=== PATIENT | female | born 1955 | race Caucasian/White ===

== ENCOUNTER → 2017-08-24 10:46 | Outpatient (CLI) | payer BC, SELFPAY ==
[2017-08-24 11:50] LABS: Hemoglobin A1c 6.1 % (4.2-6.3)
[2017-08-24 11:57] LABS: Microalbumin:Creatinine Ratio 91.7 mg/g CRE (<30 mg/g CRE)
[2017-08-24 12:09] LABS: AST(SGOT) 22 U/L (15-37); Alanine Aminotransfer ALT/SGPT 28 U/L (13-56); Albumin, Serum 3.9 g/dL (3.2-5.0); Alkaline Phosphatase 64 U/L (45-117); Anion Gap 7 (5-15); BUN 14 mg/dL (7-18); Calcium,Total 9.2 mg/dL (8.5-10.1); Chloride 108 mmol/L (98-107); Cholesterol 186 mg/dL (200); EST Glomerular Filtration Rate 91 mL/min (>60); Est Glom Filt Rate - Afr Amer 110 mL/min (>60); Globulin 3.9 g/dL (2.2-4.2); Glucose 118 mg/dL (74-106); High Density Lipoprotein 71 mg/dL; Potassium 3.9 mmol/L (3.5-5.1); Protein, Total 7.8 g/dL (6.4-8.2); Sodium Level 143 mmol/L (136-145); Triglycerides 123 mg/dL; Very Low Density Lipoprotein 25 mg/dL (5-40)
== END ==
PROVIDERS: Family Provider Internal Medicine; PCP Internal Medicine; Visit Provider Internal Medicine
DX: E78.2 Mixed hyperlipidemia (principal); R73.01 Impaired fasting glucose
CPT/HCPCS: 36415; 80053; 80061; 82043; 82570; 83036

== ENCOUNTER → 2017-09-29 10:13 | Outpatient (CLI) | payer BC, SELFPAY ==
--- NOTE | 2017-09-29 10:16 | BI_ITS ---
MAMMOGRAPHY - BILATERAL SCREENING REASON FOR EXAM: Female, 61 years old. Routine annual screening examination. PERTINENT HISTORY: Grandmother with breast cancer. Remote right stereotactic breast biopsy. TECHNIQUE: Digital bilateral breast marilee (3D mammographic acquisition) in the CC and MLO projections. 2-D mediolateral oblique (MLO) and craniocaudad (CC) views of both breasts were obtained. CAD: Full Field Digital Mammography with Computer Added Detection was performed. COMPARISON: Comparison is made with prior study dated June 25, 2016 and May 29, 2015. FINDINGS: Breast Composition: There are scattered areas of fibroglandular density. There are no dominant masses or suspicious calcifications. A tissue clip marker is seen in the upper mid right breast. Stable appearance of the small nodular density at the biopsy site. No other significant abnormalities are identified. There has been no significant change since the prior study. BI/SCREENING MAMM (CAD), BILAT IMPRESSION: Stable bilateral screening mammogram. Yearly follow-up mammogram recommended. (A) ASSESSMENT CATEGORY: BIRADS Category 2: Benign. A letter regarding these results will be sent to the patient by the facility within 30 days. Approximately 10% of breast cancers are not detected by mammography. A normal mammogram should not delay biopsy of a clinically suspicious abnormality. [id number] Electronically Signed: Parker Rojas MD at 11:23 EDT Tel [phone], Service support ,
== END ==
PROVIDERS: Family Provider Internal Medicine; PCP Internal Medicine; Visit Provider Internal Medicine
DX: Z12.31 Encounter for screening mammogram for malignant neoplasm of breast (principal)
CPT/HCPCS: 77063; 77067

== ENCOUNTER → 2017-10-01 10:23 | Outpatient (CLI) | payer BC, SELFPAY ==
--- NOTE | 2017-10-01 10:26 | RAD_ITS ---
STUDY: X-RAY - CERVICAL SPINE REASON FOR EXAM: Female, 61 years old. Neck pain. No trauma. TECHNIQUE: 6 view(s) of the cervical spine were obtained. COMPARISON: None FINDINGS: Normal anterior atlantoaxial articulation. Normal odontoid process. Normal cervical lordosis. There is multi-level endplate spondylosis. There is multi-level degenerative disc disease with multilevel disc space narrowing. There is multi-level osseous foraminal stenosis. The soft tissue structures are unremarkable. RAD/Cerv Spine 4 or 5 Views IMPRESSION: Degenerative changes. Electronically Signed: Leona Loco MD at 12:47 EDT Tel , Service support ,
--- NOTE | 2017-10-01 10:26 | RAD_ITS ---
STUDY: X-RAY - LUMBAR SPINE REASON FOR EXAM: Female, 61 years old. Lower back pain. No trauma. TECHNIQUE: 5 view(s) of the lumbar spine were obtained. COMPARISON: None FINDINGS: Normal lumbar lordosis. There is no substantial scoliosis. There is a normal alignment of the vertebrae. There is multilevel endplate spondylosis of the lumbar vertebrae. There is multi-level degenerative disc disease with multi-level disc space narrowing. There is atherosclerotic calcification of the abdominal aorta without a demonstrated aneurysm. RAD/L/S Spine Min 4 Views IMPRESSION: Degenerative changes of the spine, as detailed above. Atherosclerosis. Electronically Signed: Leona Loco MD at 11:46 EDT Tel , Service support ,
== END ==
PROVIDERS: Family Provider Internal Medicine; PCP Internal Medicine; Visit Provider Internal Medicine
DX: M54.2 Cervicalgia (principal); M54.5 Low back pain
CPT/HCPCS: 72050; 72110

== ENCOUNTER → 2017-10-24 08:56 | Outpatient (CLI) | payer BC, SELFPAY ==
--- NOTE | 2017-10-24 09:01 | CT_ITS ---
STUDY: CT ABDOMEN AND PELVIS WITHOUT CONTRAST REASON FOR EXAM: Female, 61 years old. There is hematuria left flank pain RADIATION DOSAGE (If Supplied By Facility): CTDIvol = ( 7.63 ) mGy, DLP = ( 375.43 ) mGycm TECHNIQUE: Transaxial images were obtained from the dome of the diaphragm to the symphysis pubis without oral contrast, and without intravenous contrast. Sagittal and coronal images were reconstructed. Individualized dose optimization techniques were used for this CT. COMPARISON: None. FINDINGS: The visualized lung bases are unremarkable. The visualized portions of the heart are within normal limits. Normal liver. There is a gallstone in the gallbladder measuring 1 cm. Normal spleen. There is a absent or diminutive appearance of the body and tail of the pancreas. In the head of the pancreas there is a focal fatty density suggesting probable lipoma or focal fat measuring 9 mm. Normal bilateral adrenal glands. There are multiple cystic structures in the right kidney the largest of which measures 2.3 x 2.4 cm in the upper pole of the right kidney. There is a calcification measuring 7.5 mm bordering the right renal pelvis without visualized hydronephrosis. There is an upper pole left renal cyst measuring 2.1 x 2 cm. There is a stone measuring 3.2 mm bordering the left collecting system. There is an lower pole left renal stone measuring 9.7 x 6.6 mm. There is trace left-sided pelviectasis. There is no definitive evidence of stone along the course of the visualized left ureter. There is a minimal hiatal hernia. Normal small intestine. Normal colon. There is non-visualization of the appendix. Aorta is partially calcified including bilateral takeoff of the renal arteries. Normal inferior vena cava. Normal retroperitoneum. Normal urinary bladder. There is absence of the uterus consistent with a prior hysterectomy. In the right lower quadrant there is a fluid distended structure which may represent summation of shadows with small bowel versus a ovarian cyst measuring 3.5 x 2.6 cm. There is a small umbilical hernia containing fat. There are diffuse degenerative changes of the visualized lumbar spine. CT/Abdomen/Pelvis without Cont IMPRESSION: Bilateral renal cysts. Bilateral renal stones. No definitive evidence of stones along the course of the ureters. Cholelithiasis. Diminutive and/or absent appearance of the body and tail of the pancreas recommend clinical correlation. Status post hysterectomy. Focal mildly distended small bowel right lower quadrant versus a right ovarian cyst 3.5 x 2.6 cm.. Consider follow-up pelvic ultrasound. Electronically Signed: Serena Freitas MD at 9:57 EDT Tel , Service support ,
== END ==
PROVIDERS: Family Provider Internal Medicine; PCP Internal Medicine; Visit Provider Internal Medicine
DX: R31.9 Hematuria, unspecified (principal)
CPT/HCPCS: 74176

== ENCOUNTER → 2017-11-16 08:14 | Outpatient (CLI) | payer BC, SELFPAY ==
--- NOTE | 2017-11-16 08:18 | US_ITS ---
STUDY: ULTRASOUND OF THE FEMALE PELVIS - COMPLETE REASON FOR EXAM: Female, [address] LMP: Status post hysterectomy TECHNIQUE: Transabdominal and Transvaginal TECHNICAL QUALITY: Adequate. COMPARISON: None. FINDINGS: The uterus and ovaries are not visualized in concordance with history of hysterectomy and bilateral oophorectomy.. There is no fluid in the cul-de-sac. The cervix is present. No adnexal mass is identified. US/Pelvic (Non ) IMPRESSION: Uterus and ovaries are not seen in accordance with history of hysterectomy and bilateral oophorectomy. No pelvic solid or cystic lesion is evident. Electronically Signed: Clarence Kelly MD at 20:33 EDT , Service support ,
--- NOTE | 2017-11-16 08:19 | US_ITS ---
STUDY: ABDOMINAL ULTRASOUND REASON FOR EXAM: Female, [address] TECHNIQUE: Transabdominal ultrasound was performed with real-time and static west scale imaging. TECHNICAL QUALITY: Adequate. COMPARISON: None. FINDINGS: Liver: The liver measures 14.0 cm. There is normal echogenicity of the liver. The bile ducts are within normal limits. There is hepatic color flow. The direction of portal flow is hepatopetal. There is no demonstrated mass lesion. Gallbladder: Normal distended gallbladder. The gallbladder wall measures 2.6 mm. There is a negative sonographic Nelson's sign. There is no pericholecystic fluid. There is a sludge ball within the gallbladder neck measuring approximately 1.0 cm. Common Bile Duct (C.B.D.): The common bile duct measures 4.2 mm. Pancreas: The pancreatic body and tail are atrophic. The pancreatic head is echogenic suggestive of fatty replacement. There is no demonstrated pancreatic mass or cyst. Spleen: Normal size of the spleen. The spleen measures 10.0 x 4.5 x 3.3 cm. Right Kidney: Normal size of the right kidney. The right kidney measures 10.5 x 5.1 x 6.1 cm. Normal renal cortex. The right cortex measures 1.7 cm. There are several right renal cysts measuring 2.3 x 1.6 x 1.6 cm and 1.3 x 1.3 x 1.4 cm. There is no hydronephrosis. There are 4 right renal calculi measuring from 2 to 5 mm in diameter. Left Kidney: Normal size of the left kidney. The left kidney measures 10.5 x 5.5 x 5.8 cm. Normal renal cortex. The left cortex measures 2.0 cm. There is a left renal cyst measuring 1.9 x 1.5 x 1.4 cm. There are 3 left renal calculi ranging in size from 1 to 3 mm. There is no left hydronephrosis. Aorta: The abdominal aorta measures 2.3 cm in diameter proximally, 2.0 cm in the mid abdominal region, and 1.8 cm distally. There is no abdominal aortic aneurysm. There is diffuse atheromatous plaque formation of the abdominal aorta. I.V.C.: The IVC is patent. There is no ascites. US/Abdomen Complete IMPRESSION: 1. Approximately 1 cm in diameter sludge ball noted in the gallbladder neck. 2. Bilateral renal cysts and calculi as detailed above. 3. Atrophic pancreatic body and tail. There appears to be fatty replacement of the pancreatic head. 4. Diffuse atheromatous plaque formation of the abdominal aorta. Electronically Signed: Clarence Kelly MD at 20:22 EDT , Service support ,
== END ==
PROVIDERS: Family Provider Internal Medicine; PCP Internal Medicine; Visit Provider Internal Medicine
DX: R93.8 Abnormal findings on diagnostic imaging of other specified body structures (principal)
CPT/HCPCS: 76700; 76856

== ENCOUNTER → 2017-11-19 12:27 | Outpatient (CLI) | payer BC, SELFPAY ==
[2017-11-19 12:36] LABS: Bacteria 0 SEEN /hpf (None Seen); Mucous, Urine 0 SEEN /hpf (<or=2+); Squamous Epithelial Cells - UA 0 SEEN /hpf (5-10)
[2017-11-19 14:06] LABS: Absolute Lymphocyte Count 1.94 X10^3/ul (0.83-4.51); Absolute Neutrophil Count 6.1 X10^3/uL (2.0-7.7); Basophil# 0.05 X10^3/uL; Basophil% 0.6 % (0-1); Color, Urine Yellow (Yellow); Eosinophil# 0.31 X10^3/uL; Eosinophils% 3.6 % (0-5); Glucose, Dipstick Normal (Normal); Hematocrit 43.4 % (37-47); Hemoglobin 14.5 g/dl (12.0-15.0); Ketone-Dipstick 50 mg/dl (Negative); Leukocyte Esterase-Dipstick 25 /ul (Negative); Lymphocyte # 1.94 X10^3/ul (4.0); Lymphocyte % 22.2 % (19-41); Mean Corp Hgb Conc 33.4 g/gl (32-36); Mean Corpuscular Hgb 28.4 pg (27.0-32.0); Mean Corpuscular Volume 84.9 fL (81-99); Monocyte# 0.32 X10^3/uL; Monocyte% 3.7 % (0-10); Neutrophil # 6.11 X10^3/uL (2.7-7.7); Neutrophil % 69.9 % (47-70); Nitrite-Dipstick Negative (Negative); Occult Blood-Urine 250 /ul (Negative); Platelet Count 310 K/mm3 (150-450); Protein-Dipstick Negative (Negative); RBC Distribution Width CV 13.5 % (11.6-14.6); Red Blood Count 5.11 M/mm3 (4.2-5.4); Urine Bilirubin Dipstick Negative (Negative); Urine Clarity Clear (Clear); Urine Urobilinogen Normal (Normal); White Blood Count 8.7 K/mm3 (4.4-11.0)
[2017-11-19 14:07] LABS: POSITIVE COUNT NO; POSITIVE DIFFERENTIAL NO; POSITIVE MORPHOLOGY NO
[2017-11-19 14:13] LABS: Red Blood Cells-Urine 0-5 SEEN /hpf (0-5); White Blood Cells 0-5 SEEN /hpf (0-5)
[2017-11-19 14:16] LABS: AST(SGOT) 22 U/L (15-37); Alanine Aminotransfer ALT/SGPT 24 U/L (13-56); Alkaline Phosphatase 59 U/L (45-117); Amylase 32 U/L (25-115); Anion Gap 11 (5-15); BUN 12 mg/dL (7-18); BUN/Creat Ratio 16.3 RATIO (10-20); Calcium,Total 9.3 mg/dL (8.5-10.1); Chloride 104 mmol/L (98-107); Creatinine, Serum 0.73 mg/dL (0.55-1.02); EST Glomerular Filtration Rate 86 mL/min (>60); Est Glom Filt Rate - Afr Amer 104 mL/min (>60); Globulin 4.2 g/dL (2.2-4.2); Glucose 102 mg/dL (74-106); Lipase 148 U/L (73-393); Potassium 3.2 mmol/L (3.5-5.1); Protein, Total 8.2 g/dL (6.4-8.2); Sodium Level 140 mmol/L (136-145)
== END ==
PROVIDERS: Family Provider Internal Medicine; PCP Internal Medicine; Visit Provider Physician Assistant
DX: R10.9 Unspecified abdominal pain (principal); M54.5 Low back pain
CPT/HCPCS: 36415; 80053; 81001; 82150; 83690; 85025; 87086

== ENCOUNTER 2017-11-20 11:52 | Day surgery (SDC) | payer BC, SELFPAY ==
[2017-11-20] VITALS (9 sets, daily range): BP systolic 114–132; BP diastolic 70–81; PULSE 50–66; RESP 16; TEMP 36.1–36.4; O2SAT 93–100; BMI 24.5
--- NOTE | 2017-11-20 12:07 | EKG12_ITS ---
Test Reason : PRE OP Blood Pressure : / mmHG Vent. Rate : 063 BPM Atrial Rate : 063 BPM P-R Int : 140 ms QRS Dur : 098 ms QT Int : 412 ms P-R-T Axes : 024 057 065 degrees QTc Int : 421 ms Normal sinus rhythm Normal ECG Confirmed by DEN READ, HARIS ([id number]), kennel helper JOSE RIVERA ([id number]) on 11/25/2017 11:22:44 AM Referred By: Diego Olsen Confirmed By:HARIS CRENSHAW MD
[2017-11-20 12:59] LABS: Magnesium 1.9 mg/dL (1.6-2.6); Potassium 3.5 mmol/L (3.5-5.1)
--- NOTE | 2017-11-20 13:00 | PCM.OPRPT ---
Problem List (1) Gallbladder polyp Status: Acute (2) Right upper quadrant abdominal pain Status: Acute Report of Operation Date of Procedure: 11/20/17 Pre-Operative Diagnosis: K 82.4 gallbladder polyp. R10.11 right upper quadrant abdominal pain Post-Operative Diagnosis: Same Surgery/Procedure Performed:: 81202 laparoscopic cholecystectomy Type of Anesthesia:: General Estimated Blood Loss (mL): < 25 cc Description of Procedure: Patient was brought into the operating room. Placed in the supine position. Under excellent general endotracheal intubation the abdomen was sterilely prepped and draped in the usual fashion. Local was injected infraumbilically. Dissection was carried down to the fascia. The fascia was grasped with Jennie. There is needle was placed inside the abdomen. The abdomen was insufflated to 15 torr. A 10/12 trocar was placed without difficulty. Patient was placed in the head up and rotated to the left position. I was able to place a subxiphoid #5 trocar inferior to this another #5 trocar and laterally a #5 trocar. All these under direct visualization without injury to underlying structures. Grab the fundus of the gallbladder and retracted in cephalad direction of the infundibulum and grafted laterally. I dissected out the cystic duct and cystic artery in the posterior to this and to the liver and identified close triangle quite nicely. I placed hemoclips proximally and distally on the duct and ligated the duct. I placed hemoclips proximally and distally on the cystic artery and ligated the artery. I deliver the gallbladder from the gallbladder bed with use of electrocautery was no spillage of bile or stones. Placed the specimen in a specimen bag and delivered through the umbilical port without difficulty. Reinflated the abdomen. Inspected the gallbladder used electrocautery for good hemostasis. Removed the trochars under direct visualization good hemostasis was noted. Close the fascia the umbilical port with a figure 8 stitch of 0 Vicryl. Skin incisions were closed with subcuticular stitches of 4-0 Monocryl. Receptor applied sterile dressings were applied and the patient tolerated the procedure well. - Admit VTE Documentation VTE Present on Admission: No VTE Mechan Device Prophylaxis: SCD's VTE Pharm Prophylaxis ordered?: No Reason prophylaxis not ordered:: Treatment Not Indicated
--- NOTE | 2017-11-20 13:01 | PCM.DC.GB ---
Discharge Diet: Light diet - advance as tolerated Discharge Activity: May Not Drive - for 2-3 days or while taking narcotic pain medications., - - Do not drive, work heavy equipment or sign legal documents for 24 hours. May shower in (days): 1 - with the bandage in place. Additional Activity Instructions:: Pain medication may cause nausea. You should typically eat light foods as you take your pain medications. Pain medication may also cause constipation. If this is a problem for you, please discuss with your doctor. Call your doctor if your incision/area has: Continuous Slow Oozing, Sudden Increased Bleeding, Increased Pain/ Swelling, Increased Redness, Foul Smelling Discharge Call your doctor if you observe: Fever of 101 or Higher Suture Line Care: Avoid Pulling/Pushing, Avoid Pinching/Bending Additional Dressing/Incision Instructions:: Leave operative bandaids on for 2 days. When you remove dressing, leave Steri-Strips on until your follow-up appointment, or until the Steri-Strips fall off on their own. Allergies/Adverse Reactions: Allergies No Known Allergies Allergy (Unverified 11/19/17 13:19) Medications to take at Discharge Ibuprofen 600 mg PO BID 11/19/17 Light Mineral Oil/Min Oil/Pf [Retaine Mgd Eye Drops] 1 drop EACH EYE PRN PRN 11/19/17 amlodipine 5 mg tablet 5 mg PO QDAY 11/19/17 azelastine-fluticasone 137 mcg-50 mcg/spray nasal spray 1 spray INTRANASAL BID 11/19/17 budesonide 32 mcg/actuation nasal spray 1 spray INTRANASAL BID 11/19/17 buspirone 10 mg tablet 10 mg PO BID 11/19/17 cholecalciferol (vitamin D3) 1,000 unit capsule 1,000 unit PO QDAY 11/19/17 docusate sodium 100 mg capsule 100 mg PO BID 11/19/17 hydrochlorothiazide 25 mg tablet 25 mg PO QAM 11/19/17 lisdexamfetamine 70 mg capsule 70 mg PO QAM 11/19/17 potassium chloride 20 mEq oral packet 20 meq PO BID 11/19/17 simvastatin 20 mg tablet 20 mg PO QPM 11/19/17 vit C 125 mg-E 100 unit-Zn 20 jn-owomhm-wjou-oggs-baetsa-esoge capsule 1 cap PO DAILY 11/19/17 Primary Care Physician: Kenia Bella DO [Primary Care Provider] - Test Results: Test results from this visit will be discussed in further detail at your follow-up appointment, if applicable. Please Follow Up With: Diego Olsen MD - Please call [phone] to schedule an appointment. When: 7 days after your surgery.
[2017-11-20] MEDS: Cefazolin 2 GM in 0.9% Normal Saline 100 ML IV (13:26)
--- NOTE | 2017-11-20 13:40 | GALL_PTH ---
PATIENT: CHALINO PORTILLO LOC: [facility] [place] U#:[id number] AGE/SX: 61/F ROOM: RE11/20/[address]: Dr. Diego Olsen MD : 1955 BED: DIS: 11/20/2017 SPEC #: [id number] RECD: 11/23/17 09:23 STATUS: PAYAM EMMA #: [id number] CAROL: 11/20/17 13:[address]: Diego Olsen DEPT: SURGICAL PATHOLOGY RECD BY: Braden Palencia ENTERED: 11/23/17 09:43 SP TYPE: DELIA CLARKE DR: Dr. Kenia Bella DO Tissues: Gallbladder, NOS Procedures: Surgery Specimen Level III HEADER OPERATION: Laparoscopic, cholecystomy PRE-OP DIAGNOSIS: Right upper quadrant pain TISSUE SUBMITTED: Gallbladder MICROSCOPIC DIAGNOSIS Gallbladder: Chronic cholecystitis and cholelithiasis. SJ:luz 11/24/17 MICROSCOPIC DESCRIPTION Slides are reviewed. GROSS DESCRIPTION Received is one container labeled with the patient's name and designated gallbladder. The specimen consists of a gallbladder measuring 7.5 x 2.5 x 2.5 cm. The external surface is smooth and glistening. Focally, it is granular, hemorrhagic and contains cautery artifact. The lumen of the gallbladder contains greenish bile and a dark morton-green calculus measuring 1.3 cm in greatest diameter. The mucosa is bile-stained and without any mass lesions. The gallbladder wall averages 0.1 cm in thickness and is free of mass lesions. Spot Man sections of the gallbladder and the cystic duct are submitted in one cassette. / AM:luz 11/23/17 TC:3 CPT: 45683
[2017-11-20] MEDS: Bupivacaine 0.25% 30 ML Vial (13:45)
== END 2017-11-20 16:25 | disposition home or self-care (01) ==
LOC: SDC 11:54 → AC 11:57
PROVIDERS: Family Provider Internal Medicine; PCP Internal Medicine; Visit Provider Surgery
PROC: (CPT 47562; principal; 2017-11-20 13:20)
DX: K80.10 Calculus of gallbladder with chronic cholecystitis without obstruction (principal); I10 Essential (primary) hypertension; E78.00 Pure hypercholesterolemia, unspecified; R73.03 Prediabetes; F41.9 Anxiety disorder, unspecified; Z78.0 Asymptomatic menopausal state; Z79.899 Other long term (current) drug therapy; Z87.442 Personal history of urinary calculi; Z87.891 Personal history of nicotine dependence
CPT/HCPCS: 47562; 36415; 83735; 84132; 88304; 93005; J7120; J2405

== ENCOUNTER → 2018-05-04 11:15 | Outpatient (CLI) | payer BC, SELFPAY ==
--- NOTE | 2018-05-04 11:18 | CT_ITS ---
STUDY: CT ABDOMEN AND PELVIS WITHOUT CONTRAST REASON FOR EXAM: Female, 62 years old. Hematuria and left flank pain RADIATION DOSAGE (If Supplied By Facility): CTDIvol = ( 6.77 ) mGy, DLP = ( 346.93 ) mGycm TECHNIQUE: Transaxial images were obtained from the dome of the diaphragm to the symphysis pubis without oral contrast, and without intravenous contrast. Sagittal and coronal images were reconstructed. Individualized dose optimization techniques were used for this CT. COMPARISON: 10/24/2017 FINDINGS: The visualized lung bases are unremarkable. The visualized portions of the heart are within normal limits. Normal liver. There is non-visualization of the gallbladder, which may be secondary to either contraction or a prior cholecystectomy. Normal spleen. Normal pancreas. Normal bilateral adrenal glands. Bilateral nonobstructing renal stones. Multiple right renal cysts. Normal visualized stomach. Normal small intestine. Normal colon. The appendix is visualized and appears normal. Normal abdominal aorta. Normal inferior vena cava. Normal retroperitoneum. Normal urinary bladder. Normal abdominal wall. There are diffuse degenerative changes of the visualized lumbar spine. CT/Abdomen/Pelvis without Cont IMPRESSION: No evidence of acute intestinal pathology or acute obstructive uropathy. Electronically Signed: Juan Shepard MD at 11:38 EST Tel , Service support ,
[2018-05-04 11:53] LABS: ALB/GLOB Ratio 1.3 RATIO (0.9-2.4); AST(SGOT) 20 U/L (15-37); Alanine Aminotransfer ALT/SGPT 37 U/L (13-56); Albumin, Serum 4.2 g/dL (3.2-5.0); Alkaline Phosphatase 72 U/L (45-117); Anion Gap 6 (5-15); BUN 25 mg/dL (7-18); BUN/Creat Ratio 37.4 RATIO (10-20); Calcium,Total 9.4 mg/dL (8.5-10.1); Chloride 107 mmol/L (98-107); Creatinine, Serum 0.67 mg/dL (0.55-1.02); EST Glomerular Filtration Rate 95 mL/min (>60); Est Glom Filt Rate - Afr Amer 115 mL/min (>60); Globulin 3.3 g/dL (2.2-4.2); Glucose 115 mg/dL (74-106); Protein, Total 7.5 g/dL (6.4-8.2); Sodium Level 141 mmol/L (136-145)
== END ==
PROVIDERS: Family Provider Internal Medicine; PCP Internal Medicine; Referring Provider Internal Medicine; Visit Provider Internal Medicine
DX: R10.9 Unspecified abdominal pain (principal)
CPT/HCPCS: 74176; 80053

== ENCOUNTER 2018-05-18 07:38 | Day surgery (SDC) | payer BC, SELFPAY ==
[2018-05-18 08:15] LABS: Potassium 3.5 mmol/L (3.5-5.1)
[2018-05-18 08:29] VITALS: BP 128/84; PULSE 63; RESP 16; TEMP 37; O2SAT 99; BMI 25.0
--- NOTE | 2018-05-18 09:20 | CALC_PTH ---
PATIENT: CHALINO PORTILLO LOC: [facility] [place] U#:[id number] AGE/SX: 62/F ROOM: RE05/18/[address]: Dr. Harmony Smith MD : 1955 BED: DIS: 05/18/2018 SPEC #: [id number] RECD: 05/18/18 10:47 STATUS: PAYAM EMMA #: [id number] CAROL: 05/18/18 09:[address]: Harmony Smith DEPT: SURGICAL PATHOLOGY RECD BY: Grzegorz Randhawa ENTERED: 05/18/18 12:21 SP TYPE: Calculi OTHR DR: Dr. Kenia Bella, DO Tissues: CALCULI Procedures: Surgery Specimen Level I HEADER OPERATION: Cysto, ureteroscopy, retro, laser, stent, basket extraction PRE-OP DIAGNOSIS: Calculus of ureter, calculus of kidney, gross hematuria, low back pain TISSUE SUBMITTED: Stone fragment GROSS DIAGNOSIS Ureteral calculus, removal: Unremarkable calculus (gross diagnosis only). AM:luz 05/19/18 COMMENT The calculus is submitted in its entirety for chemical stone analysis. The results from this study will be reported separately. GROSS DESCRIPTION Received in fixative is one container labeled with the patient's name and designated stone fragment. The specimen consists of a single irregular fragment of light morton calculus measuring 0.2 x 0.1 x 0.1 cm. / AM:luz 05/18/18 CPT: 54928
[2018-05-18] MEDS: Cefazolin 2 GM in 0.9% Normal Saline 100 ML IV (09:22)
--- NOTE | 2018-05-18 09:25 | DCINST_ITS ---
Discharge Diet: No Restrictions Discharge Activity: May not drive while taking narcotic pain medications. Call your doctor if you observe: Fever of 101 or Higher, Inability to urinate, Shortness of breath, Chest pain, Calf discomfort, Uncontrolled pain Allergies/Adverse Reactions: Allergies biotin Allergy (Verified 05/17/18 10:13) Rash Medications to take at Discharge Ibuprofen 600 mg PO BID PRN 11/19/17 Light Mineral Oil/Min Oil/Pf [Retaine Mgd Eye Drops] 1 drp EACH EYE PRN PRN 11/19/17 amlodipine 5 mg tablet 5 mg PO QDAY 11/19/17 budesonide 32 mcg/actuation nasal spray 1 spray INTRANASAL BID 11/19/17 cholecalciferol (vitamin D3) 1,000 unit capsule 5,000 unit PO QDAY 11/19/17 hydrochlorothiazide 25 mg tablet 25 mg PO QAM 11/19/17 lisdexamfetamine 70 mg capsule 70 mg PO QAM 11/19/17 simvastatin 20 mg tablet 20 mg PO QPM 11/19/17 Oxycodone HCl/Acetaminophen [Percocet 5/325] 1 - 2 tab PO Q4H PRN PRN 4 Days #30 tab 11/20/17 Amoxicillin 875 mg PO BID 05/17/18 Lutein 10 mg PO DAILY 05/17/18 Potassium Chloride [K-Dur] 20 meq PO BID 05/17/18 Tamsulosin HCl [Flomax] 0.4 mg PO QHS 05/17/18 Wheat Dextrin [Benefiber] 2 each PO DAILY 05/17/18 Primary Care Physician: Kenia Bella DO [Primary Care Provider] - Test Results: Test results from this visit will be discussed in further detail at your follow- up appointment, if applicable. Please Follow Up With: Harmony Smith MD When: call for appt for stent removal Proposed Discharge Date: 05/18/18
--- NOTE | 2018-05-18 09:27 | OP.PCM_ITS ---
Problem List (1) Right ureteral calculus Status: Acute Report of Operation Date of Procedure: 05/18/18 Pre-Operative Diagnosis: right ureteral calculus Post-Operative Diagnosis: same Surgery/Procedure Performed:: cystoscopy, right ureteroscopy, holmium laser lithotripsy, stone basket extraction, right ureteral stent insertion. Description of Surgical Findings:: distal stones seen, fragmented and removed. 6x24 JJ stent. blacking wheel tender: Harmony Smith Type of Anesthesia:: General Special Medications: Ancef 2 gm IV Specimen's removed: stone fragment Estimated Blood Loss (mL): 3cc Description of Procedure: The patient is a 62-year-old female presented to the office last week with complaints of right and left back pain. On review of her CT images, a right mid ureteral calculus with hydronephrosis was identified. After dis cussing the risks benefits and alternatives, informed consent was obtained and the patient agreed to proceed. Patient was taken to the operating room and placed on the operating room table. Anesthesia monitored the head, neck, airway, IV access and vital signs throughout the case. Once anesthesia was appropriately administered the patient was placed into dorsal lithotomy position was prepped and draped in usual sterile fashion. A cystourethroscopy was performed revealing no abnormality of the urinary bladder or urethra. The ureteral orifice was identified and intubated with a 0.035 Glidewire. A rigid ureteroscopy was performed and the stone was identified in the distal ureter. There were 2 stones. Using the holmium laser, these stones were lasered into small pieces that were then stone basket retrieved. At this time, a 6 Spanish 24 cm double-J stent was inserted without difficulty with good curling in the renal pelvis as well as the urinary bladder. The patient's bladder was emptied and the case was terminated. The patient was awakened and taken to the recovery room in good condition. Grafts/Implants Used: 6x24 JJ stent - Complications none - Admit VTE Documentation VTE Present on Admission: Yes VTE Mechan Device Prophylaxis: SCD's VTE Pharm Prophylaxis ordered?: No Reason prophylaxis not ordered:: Treatment Not Indicated
[2018-05-18 10:17] VITALS: BP 123/81; BP 128/84; PULSE 77; RESP 16; TEMP 37; O2SAT 95
[2018-05-18 10:30] VITALS: BP 128/84; BP 131/87; PULSE 70; RESP 16; O2SAT 97
[2018-05-18 10:48] VITALS: BP 128/84; BP 130/77; PULSE 71; RESP 18; TEMP 36.4; O2SAT 98
[2018-05-18 11:43] VITALS: BP 128/70; BP 128/84; PULSE 77; RESP 16; TEMP 36.2; O2SAT 98
[2018-05-21 20:07] LABS: Ca Oxalate, Dihydrate 15 % (.); Ca Oxalate, Monohydrate 80 % (.); Size 3x2x1 mm (.)
== END 2018-05-18 11:43 | disposition home or self-care (01) ==
LOC: SDC 07:38 → AC 07:39
PROVIDERS: Anesthesiology; Family Provider Internal Medicine; PCP Internal Medicine; Referring Provider Urology; Visit Provider Urology
PROC: 0TJ98ZZ Inspection of Ureter, Via Natural or Artificial Opening Endoscopic (ICD-10-PCS; CPT 52352; principal; 2018-05-18 09:10)
DX: N13.2 Hydronephrosis with renal and ureteral calculous obstruction (principal); R31.0 Gross hematuria; I10 Essential (primary) hypertension; R73.03 Prediabetes; K21.9 Gastro-esophageal reflux disease without esophagitis; Z78.0 Asymptomatic menopausal state; Z79.899 Other long term (current) drug therapy; Z87.891 Personal history of nicotine dependence
CPT/HCPCS: 52356; 76000; 82360; 84132; 88300; J7120; C1769; C2617; J2405

== ENCOUNTER 2018-05-21 14:29 | Emergency (ER) | payer BC, SELFPAY ==
[2018-05-21 14:31] VITALS: BP 141/78; PULSE 68; RESP 18; TEMP 36.2; O2SAT 99; BMI 25.0
[2018-05-21] MEDS: Morphine 4 MG/ML Syringe IV (15:00)
[2018-05-21] MEDS: Ketorolac 30 MG/ML Syringe 15 MG IV (15:00)
[2018-05-21] MEDS: Ondansetron 4 MG/2 ML Vial IV (15:00)
[2018-05-21 15:50] LABS: Hematocrit 37.7 % (37-47); Hemoglobin 12.9 g/dl (12.0-15.0); Mean Corpuscular Volume 84.7 fL (81-99); Red Blood Count 4.45 M/mm3 (4.2-5.4); White Blood Count 6.6 K/mm3 (4.4-11.0)
[2018-05-21 15:51] LABS: Absolute Lymphocyte Count 1.32 X10^3/ul (0.83-4.51); Absolute Neutrophil Count 4.5 X10^3/uL (2.0-7.7); Basophil# 0.05 X10^3/uL; Basophil% 0.8 % (0-1); Eosinophil# 0.28 X10^3/uL; Eosinophils% 4.3 % (0-5); Lymphocyte # 1.32 X10^3/ul (4.0); Lymphocyte % 20.2 % (19-41); Mean Corp Hgb Conc 34.2 g/gl (32-36); Mean Platelet Vol. 8.8 fl (6.2-12.0); Monocyte# 0.43 X10^3/uL; Monocyte% 6.6 % (0-10); Neutrophil # 4.45 X10^3/uL (2.7-7.7); Neutrophil % 67.8 % (47-70); POSITIVE COUNT NO; POSITIVE DIFFERENTIAL NO; POSITIVE MORPHOLOGY NO; Platelet Count 305 K/mm3 (150-450); RBC Distribution Width CV 12.9 % (11.6-14.6); RBC Distribution Width SD 38.8 fl (35.1-43.9)
[2018-05-21 15:57] VITALS: BP 146/56; PULSE 57; RESP 16
[2018-05-21 15:57] LABS: Anion Gap 8 (5-15); BUN 13 mg/dL (7-18); BUN/Creat Ratio 17.3 RATIO (10-20); Calcium,Total 8.9 mg/dL (8.5-10.1); Chloride 102 mmol/L (98-107); Creatinine, Serum 0.75 mg/dL (0.55-1.02); EST Glomerular Filtration Rate 83 mL/min (>60); Est Glom Filt Rate - Afr Amer 101 mL/min (>60); Estimated Creatinine Clearance 73.74 ml/min; Glucose 115 mg/dL (74-106); Potassium 2.6 mmol/L (3.5-5.1); Sodium Level 137 mmol/L (136-145)
--- NOTE | 2018-05-21 15:57 | ED.RN ---
notified Dr. Allen of pt's K+ is 2.6
[2018-05-21 16:10] LABS: Bacteria 0 SEEN /hpf (None Seen); Mucous, Urine 0 SEEN /hpf (<or=2+); Squamous Epithelial Cells - UA 0 SEEN /hpf (5-10)
[2018-05-21 16:24] LABS: Color, Urine Other (Yellow); Glucose, Dipstick Normal (Normal); Ketone-Dipstick 50 mg/dl (Negative); Leukocyte Esterase-Dipstick 25 /ul (Negative); Nitrite-Dipstick Negative (Negative); Occult Blood-Urine 250 /ul (Negative); Protein-Dipstick 100 mg/dl (Negative); Urine Bilirubin Dipstick Negative (Negative); Urine Urobilinogen Normal (Normal)
[2018-05-21 16:25] LABS: Urine Clarity Sl Cldy (Clear)
[2018-05-21 16:31] LABS: Red Blood Cells-Urine > 100 SEEN /hpf (0-5); White Blood Cells 0-5 SEEN /hpf (0-5)
--- NOTE | 2018-05-21 16:39 | ED.VISSUMM ---
- ER Visit Summary Date of Service: 05/21/18 Chief Complaint: Severe right low back/flank pain. History of Present Illness: The patient is a 62 F who recently had surgery and removal of 2 small distal right ureteral stones. She presents because of pain that she localizes superior to the. Anterior iliac spine on the right. The pain is waxing waning intensity and colicky in nature. He does report discomfort with urination. She was seen by her urologist this morning. Stent was removed. She states she took pain medicine that she was prescribed with no effect. She denies fever, chills night sweats. She denies any visual, ocular auditory symptoms. She denies cardiac respiratory symptoms. She does report nausea. She also reported discomfort with urination. She denies hematuria frequency. She denies neurologic symptoms. She denies problems with bruising. She denies rash or swelling i.e. angioedema. Physical Examination: Vital signs noted. Blood pressure is elevated 141/70. She does appear uncomfortable. HEENT exam is unremarkable. Insert cardiopulmonary exam abdomen soft nontender. Bowel sounds present normal. There is no CVA tenderness noted. There is no dermatologic lesions noted. Neuro exam is nonfocal. Test Results: CBC is normal. Basic metabolic panel is marked for potassium of 2.6. UA reveals microscopic hematuria with no evidence of infection. Emergency Department Course and Treatment: IV was established. She was treated with 50 mg Toradol, 4 mg of morphine sulfate and 4 mg of Zofran all IV push. She reported marked improvement. She did receive 50 mEq of potassium orally since her potassium is low at 2.6. Treatment Plan: Call was placed to her urologist and will have patient follow-up with PCP for the hypokalemia and urology if symptoms persist or worsen. Dr. Harmony Smith was in agreement with the plan Disposition: Discharged home in stable condition Impression: 1. Right flank pain suspect ureteral spasm 2. Microscopic hematuria 3. Hypokalemia This note was generated with Ak[employer] dictation software. It may contain incorrect words, spelling, and punctuation that were not noted in review of the chart prior to signing ED Disposition - Plan for ED Patient: Disposition: Home or Assisted Living Instructions: ED Potassium Deficiency Prescriptions: Potassium Chl Soln 20 meq PO BID #150 [facility] [place]: Kenia Bella DO [Primary Care Provider] - 3-5 Days Harmony Smith MD [STAFF PHYSICIAN] - As Needed
[2018-05-21 17:12] VITALS: BP 128/85; PULSE 63; RESP 16
== END 2018-05-21 17:15 | disposition home or self-care (01) ==
PROVIDERS: Emergency Provider Emergency Medicine; Family Provider Internal Medicine; PCP Internal Medicine
DX: R10.9 Unspecified abdominal pain (principal); R31.29 Other microscopic hematuria; E87.6 Hypokalemia; R30.9 Painful micturition, unspecified; R35.0 Frequency of micturition; R11.2 Nausea with vomiting, unspecified; R03.0 Elevated blood-pressure reading, without diagnosis of hypertension; Z87.442 Personal history of urinary calculi; Z79.899 Other long term (current) drug therapy
CPT/HCPCS: 80048; 81001; 85025; 96374; 96375; 99284; J7030; J2405

== ENCOUNTER 2018-07-09 06:29 | Day surgery (SDC) | payer BC, SELFPAY ==
[2018-07-08 13:41] LABS: Potassium 3.1 mmol/L (3.5-5.1)
[2018-07-09 07:02] VITALS: BP 126/85; PULSE 60; RESP 16; TEMP 36.5; O2SAT 100; BMI 24.5
[2018-07-09] MEDS: Cefazolin 2 GM in 0.9% Normal Saline 100 ML IV (08:05)
--- NOTE | 2018-07-09 08:06 | PCM.OPRPT ---
Problem List (1) Renal calculus, left Status: Acute Report of Operation Date of Procedure: 07/09/18 Pre-Operative Diagnosis: left renal calculus Post-Operative Diagnosis: same Surgery/Procedure Performed:: left renal extracorporeal shockwave lithotripsy Description of Surgical Findings:: stone visualized, appeared fragmented at conclusion of shocks. Type of Anesthesia:: General Special Medications: Ancef Description of Procedure: The patient is a 62-year-old female who has been identified as having a large left renal calculus on evaluation for a ureteral calculus. She now presents for definitive treatment of her left renal stone. All risks benefits and alternatives were discussed, and informed consent was obtained. Patient was taken to the operating room and placed on the lithotripter table. Anesthesia monitored the head, neck, airway, vital signs, IV access throughout the case. Once anesthesia was appropriately administered to the lithotripter was aligned with the left stone which was easily visualized. In total 3000 shocks were applied to the stone which appeared to be fragmented at the conclusion of the case. The patient was awakened and taken to the recovery room in good condition. There were no complications. Grafts/Implants Used: none - Complications none - Admit VTE Documentation VTE Present on Admission: Yes VTE Mechan Device Prophylaxis: SCD's VTE Pharm Prophylaxis ordered?: No Reason prophylaxis not ordered:: Treatment Not Indicated
--- NOTE | 2018-07-09 08:09 | DCINST_ITS ---
Discharge Diet: No Restrictions, - - plenty of fluids. Discharge Activity: May not drive while taking narcotic pain medications. May resume sexual activity in: No Restrictions Call your doctor if you observe: Fever of 101 or Higher, Inability to urinate, Inability to have a bowel movement, Shortness of breath, Chest pain, Calf discomfort, Uncontrolled pain Allergies/Adverse Reactions: Allergies biotin Allergy (Verified 07/02/18 12:06) Rash Medications to take at Discharge amlodipine 5 mg tablet 5 mg PO QDAY 11/19/17 cholecalciferol (vitamin D3) 1,000 unit capsule 5,000 unit PO QDAY 11/19/17 hydrochlorothiazide 25 mg tablet 25 mg PO QAM 11/19/17 lisdexamfetamine 70 mg capsule 70 mg PO QAM 11/19/17 simvastatin 20 mg tablet 20 mg PO QPM 11/19/17 Lutein 10 mg PO DAILY 05/17/18 Potassium Chloride [K-Dur] 20 meq PO BID 05/17/18 Wheat Dextrin [Benefiber] 2 each PO DAILY 05/17/18 Budesonide [Rhinocort Allergy] 8.43 ml NS DAILY 05/21/18 Potassium Chl Soln 20 meq PO BID #150 [facility] 05/21/18 Lactobacillus Combo No.11 [Probiotic] 1 each PO DAILY 07/02/18 Magnesium Glycinate [Mag Glycinate] 400 mg PO DAILY 07/02/18 Phytonadione (Vit K1) [Vitamin K] 200 mcg PO DAILY 07/02/18 Smz/Tmp Ds [Bactrim Ds] 1 tab PO BID 3 Days #6 tab 07/09/18 The following prescriptions were given: Smz/Tmp Ds [Bactrim Ds] 1 tab PO BID 3 Days #6 tab Orders to be completed after discharge: Potassium Time Frame: 07/05/18, Location: Laboratory Primary Care Physician: Kenia Bella DO [Primary Care Provider] - Test Results: Test results from this visit will be discussed in further detail at your follow- up appointment, if applicable. Please Follow Up With: Harmony Smith MD When: call for appt Proposed Discharge Date: 07/09/18
[2018-07-09 09:01] VITALS: BP 126/85; BP 126/91; PULSE 73; RESP 14; TEMP 36.3; O2SAT 98
[2018-07-09 09:15] VITALS: BP 126/85; BP 132/82; PULSE 66; RESP 18; O2SAT 98
[2018-07-09 09:30] VITALS: BP 126/85; BP 134/74; PULSE 66; RESP 16; O2SAT 97
[2018-07-09 09:42] VITALS: BP 115/83; BP 126/85; PULSE 73; RESP 18; TEMP 36.2; O2SAT 98
[2018-07-09] MEDS: Ketorolac 30 MG/ML Syringe IV (09:59)
[2018-07-09 12:27] VITALS: BP 126/85; BP 132/78; PULSE 51; RESP 18; TEMP 36.6; O2SAT 100
== END 2018-07-09 12:31 | disposition home or self-care (01) ==
LOC: SDC 06:35 → AC 06:36
PROVIDERS: Family Provider Internal Medicine; PCP Internal Medicine; Referring Provider Urology; Visit Provider Urology
PROC: (CPT 50590; principal; 2018-07-09 07:50)
DX: N20.2 Calculus of kidney with calculus of ureter (principal); R31.0 Gross hematuria; I10 Essential (primary) hypertension; E78.00 Pure hypercholesterolemia, unspecified; K21.9 Gastro-esophageal reflux disease without esophagitis; Z78.0 Asymptomatic menopausal state; Z79.899 Other long term (current) drug therapy; Z87.891 Personal history of nicotine dependence
CPT/HCPCS: 50590; 36415; 84132; J7120; A4216; J2405

== ENCOUNTER → 2018-07-21 10:42 | Outpatient (CLI) | payer BC, SELFPAY ==
[2018-07-09 07:02] VITALS: BMI 24.5
--- NOTE | 2018-07-21 10:45 | RAD_ITS ---
STUDY: X-RAY - ABDOMEN/PELVIS REASON FOR EXAM: Female, 62 years old. Kidney stone. TECHNIQUE: Single AP view of the abdomen / pelvis. COMPARISON: None. FINDINGS: Normal visualized lung bases. There is a moderate amount of colonic fecal material. Questionable 2 mm calculus in the distal portion of the right ureter. There are calcified phleboliths in the pelvis. There are diffuse degenerative changes of the visualized lumbar spine. RAD/Abdomen Single View IMPRESSION: Questionable 2 mm calculus in the distal portion of the right ureter. Electronically Signed: Parker Rojas, at 10:32 EDT , Service support ,
== END ==
PROVIDERS: Family Provider Internal Medicine; PCP Internal Medicine; Referring Provider Urology; Visit Provider Urology
DX: N20.0 Calculus of kidney (principal)
CPT/HCPCS: 74018

== ENCOUNTER → 2018-08-10 14:10 | Outpatient (CLI) | payer BC, SELFPAY ==
[2018-08-10 14:45] LABS: ALB/GLOB Ratio 1.3 RATIO (0.9-2.4); AST(SGOT) 22 U/L (15-37); Alanine Aminotransfer ALT/SGPT 24 U/L (13-56); Albumin, Serum 4.1 g/dL (3.2-5.0); Alkaline Phosphatase 71 U/L (45-117); Anion Gap 6 (5-15); BUN 13 mg/dL (7-18); BUN/Creat Ratio 16.3 RATIO (10-20); Chloride 105 mmol/L (98-107); EST Glomerular Filtration Rate 77 mL/min (>60); Est Glom Filt Rate - Afr Amer 94 mL/min (>60); Globulin 3.2 g/dL (2.2-4.2); Glucose 103 mg/dL (74-106); Magnesium 2.4 mg/dL (1.6-2.6); Potassium 3.7 mmol/L (3.5-5.1); Protein, Total 7.3 g/dL (6.4-8.2); Sodium Level 139 mmol/L (136-145)
== END ==
PROVIDERS: Family Provider Internal Medicine; PCP Internal Medicine; Referring Provider Internal Medicine; Visit Provider Internal Medicine
DX: I10 Essential (primary) hypertension (principal)
CPT/HCPCS: 80053; 83735

== ENCOUNTER → 2018-09-30 10:24 | Outpatient (CLI) | payer BC, SELFPAY ==
--- NOTE | 2018-09-30 10:26 | BI_ITS ---
MAMMOGRAPHY - BILATERAL SCREENING REASON FOR EXAM: Female, 62 years old. Routine annual screening examination. PERTINENT HISTORY: Grandmother with breast cancer. Remote right stereotactic breast biopsy. TECHNIQUE: Digital bilateral breast kalie (3D mammographic acquisition) in the CC and MLO projections. 2-D mediolateral oblique (MLO) and craniocaudad (CC) views of both breasts were obtained. CAD: Full Field Digital Mammography with Computer Added Detection was performed. COMPARISON: Comparison is made with prior study dated September 29, 2017 and June 25, 2016. FINDINGS: Breast Composition: There are scattered areas of fibroglandular density. There are no dominant masses or suspicious calcifications. No other significant abnormalities are identified. There has been no significant change since the prior study. BI/SCREEN MAMM (CAD) W/KALIE BILAT IMPRESSION: Stable bilateral screening mammogram. Yearly follow-up mammogram recommended. (A) ASSESSMENT CATEGORY: BIRADS Category 1: Negative. A letter regarding these results will be sent to the patient by the facility within 30 days. Approximately 10% of breast cancers are not detected by mammography. A normal mammogram should not delay biopsy of a clinically suspicious abnormality. [id number] Electronically Signed: Parker Rojas, at 13:38 EDT , Service support ,
== END ==
PROVIDERS: Family Provider Internal Medicine; PCP Internal Medicine; Referring Provider Internal Medicine; Visit Provider Internal Medicine
DX: Z12.31 Encounter for screening mammogram for malignant neoplasm of breast (principal)
CPT/HCPCS: 77063; 77067

== ENCOUNTER → 2018-10-11 12:26 | Outpatient (CLI) | payer SELFPAY ==
--- NOTE | 2018-10-11 12:32 | CT_ITS ---
STUDY: CARDIAC CALCIUM SCORING - CT CHEST REASON FOR EXAM: Female, 62 years old. Coronary calcium screening, over read. RADIATION DOSAGE (If Supplied By Facility): DLP = ( 268.17 ) mGycm TECHNIQUE: Axial non-enhanced images were acquired through the heart for the sole purpose of measuring coronary artery calcium. Individualized dose optimization techniques were used for this CT. COMPARISON: None. FINDINGS: Upper abdomen: No acute process. Body wall soft tissues: No acute process. Osseous structures: No acute process. Mediastinum: Normal esophagus. No mass or lymphadenopathy. Aorta: Nonaneurysmal ectasia of the ascending aorta and proximal arch up to 3.8 cm. Mild arch atherosclerosis. Next line pulmonary arteries: Nondilated. IVC and SVC: Normal. Next line pulmonary veins: Normal. Lungs: Normal. Heart: No cardiomegaly or pericardial effusion. Coronary arteries: Right and left coronary arteries each emerge from the appropriate coronary sinus with right coronary dominance to the PDA. Small foci of calcified plaque in the proximal RCA, proximal ramus intermedius branch artery, proximal LAD. Coronary calcium Agatston score 25.4 Left main 0 Proximal LAD and circumflex 8.74 RCA 16.7 59th percentile meaning that 50% of the population of the same gender and age group has a lower calcium score. Mild plaque burden, likely mild or minimal coronary stenosis. CT/Limited Chest CT w/CCTA IMPRESSION: Normal coronary artery branching anatomy. Mild atherosclerosis. Calcium score 25.4. No other significant thoracic abnormality is evident. Electronically Signed: Rafat Redd MD at 14:59 EDT Tel , Service support ,
[2018-10-11 12:37] VITALS: BP 138/76; PULSE 69; RESP 16; O2SAT 97; BMI 24.2
--- NOTE | 2018-10-14 09:06 | CCTA_ITS ---
Calcium Scoring Coronary Calcium Scoring: High-resolution Computed Tomographic imaging of the chest was performed on [ ], with particular attention paid to the coronary arteries. Images from the examination were analyzed for the presence and extent of coronary artery calcification , using coronary calcium quantification software. The patient to lerated the procedure well and there were no complications. The results of the coronary calcification analysis are provided below. - Findings Left Main (LM): 8.74 Left Anterior Descending (LAD): 0 Left Circumflex (LCX): 0 Right Coronary Artery (RCA): 16.7 Total Agatston Score: 25.44 Percentile Rankin - Conclusion Calcium Scoring Interpretation: Calcium Score Interpretation 0 No identifiable atherosclerotic plaque. Very low cardiovascular disease risk. <5% chance of presence coronary artery disease A Negative Examination 1-10 Minimal Plaque burden. Significant coronary artery disease very unlikely. 11-100 Mild plaque burden. Likely mild or minimal coronary atherosclerosis. 101-400 Moderate plaque burden Moderate non-obstructive coronary artery disease highly likely. Over 400 Extensive plaque burden. High likelihood of at least one significant coronary stenosis (>50% diameter) Conclusions: Patient's calcium score results suggest mild plaque burden, likely mild or minimal coronary atherosclerosis. Recommendations: Risk factor modification. Adoption and maintenance of a healthy lifestyle is recommended for all people. Tobacco use should be avoided. However, note that these are general recommendations only, and as with all such matters, the personal physician should be consulted regarding recommendations appropriate for the individual.
== END ==
PROVIDERS: Family Provider Internal Medicine; PCP Internal Medicine; Referring Provider Internal Medicine; Visit Provider Internal Medicine
DX: E78.5 Hyperlipidemia, unspecified (principal)
CPT/HCPCS: 75571; 76380

== ENCOUNTER 2018-12-06 09:48 | Outpatient (RCR) | payer BC, SELFPAY ==
[2018-10-11 12:37] VITALS: BMI 24.2
== END 2018-12-18 23:59 ==
LOC: NS 09:48
PROVIDERS: Family Provider Internal Medicine; PCP Internal Medicine; Visit Provider Internal Medicine
DX: R73.01 Impaired fasting glucose (principal); E78.2 Mixed hyperlipidemia; N20.0 Calculus of kidney
CPT/HCPCS: 97802

== ENCOUNTER → 2018-12-09 08:26 | Outpatient (CLI) | payer BC, SELFPAY ==
[2018-10-11 12:37] VITALS: BMI 24.2
--- NOTE | 2018-12-09 08:31 | CT_ITS ---
STUDY: CT ABDOMEN AND PELVIS WITHOUT CONTRAST REASON FOR EXAM: Female, 62 years old. Left flank pain 2 months. RADIATION DOSAGE (If Supplied By Facility): DLP = ( 347.66 ) mGycm TECHNIQUE: Transaxial images were obtained from the dome of the diaphragm to the symphysis pubis without oral contrast, and without intravenous contrast. Sagittal and coronal images were reconstructed. Individualized dose optimization techniques were used for this CT. COMPARISON: CT chest 10/11/2018, CT abdomen and pelvis 05/04/2018 FINDINGS: Body wall soft tissues: No acute process. Osseous structures: Prominent disc degeneration L4-L5 and L5-S1, contributing to only mild foraminal narrowing. Inferior chest: No acute process. Hepatobiliary: Cholecystectomy. Normal liver parenchyma. Nondilated biliary tree. Pancreas: Pancreatic head normal. Apparent marked atrophy of the pancreatic tail. Spleen: Normal. Adrenal glands: Normal. Urogenital: Stable bilateral renal cysts compared to prior imaging as far back as 10/24/2017 there is a punctate 2 mm nonobstructing calyceal calculus left kidney mid polar calyx. No retained calculi in the right kidney. Left collecting system and ureter normal. Right collecting system and ureter normal. Unremarkable urinary bladder. Uterus absent. No adnexal mass or cyst. Pelvic floor and sidewalls and retroperitoneum: No mass or adenopathy. Vasculature: Mild atherosclerosis. Stomach: No acute process. Small bowel and mesentery: No acute process. Large bowel: Normal appendix. Normal large bowel and rectum. Free fluid or free air: None. CT/Abdomen/Pelvis without Cont IMPRESSION: No acute abdominopelvic process is evident. Stable bilateral renal cysts. Solitary punctate nonobstructing calyceal calculus of the left kidney. There is no evidence of acute calculus passage and there are no secondary features of recently completed calculus passage. Low lumbar spondylosis. Electronically Signed: Rafat Redd MD at 9:17 EDT Tel , Service support ,
== END ==
PROVIDERS: Family Provider Internal Medicine; PCP Internal Medicine; Referring Provider Urology; Visit Provider Urology
DX: R10.9 Unspecified abdominal pain (principal)
CPT/HCPCS: 74176

== ENCOUNTER 2018-12-27 11:31 | Outpatient (RCR) | payer BC, SELFPAY ==
[2018-10-11 12:37] VITALS: BMI 24.2
== END 2018-12-27 23:59 | disposition home or self-care (01) ==
LOC: NS 11:31
PROVIDERS: Family Provider Internal Medicine; PCP Internal Medicine; Visit Provider Internal Medicine
DX: Z71.3 Dietary counseling and surveillance (principal); R73.01 Impaired fasting glucose; E78.2 Mixed hyperlipidemia; N20.0 Calculus of kidney
CPT/HCPCS: 97803

== ENCOUNTER → 2019-01-27 14:36 | Outpatient (CLI) | payer BC, SELFPAY ==
[2018-10-11 12:37] VITALS: BMI 24.2
--- NOTE | 2019-01-27 14:41 | RAD_ITS ---
STUDY: X-RAY - LEFT HAND REASON FOR EXAM: Female, 63 years old. Trauma pain TECHNIQUE: 3 view(s) of the hand. COMPARISON: None. FINDINGS: Studies of the left hand in 3 projections shows no evidence of fracture, dislocation, or bony destruction. RAD/Hand Min 3 Views IMPRESSION: Normal x-ray examination of the hand. Electronically Signed: Mook Seth, at 15:49 EDT Tel , Service support ,
== END ==
PROVIDERS: Family Provider Internal Medicine; PCP Internal Medicine; Referring Provider Internal Medicine; Visit Provider Internal Medicine
DX: M79.642 Pain in left hand (principal)
CPT/HCPCS: 73130

== ENCOUNTER → 2019-02-15 12:43 | Outpatient (CLI) | payer BC, SELFPAY ==
[2018-10-11 12:37] VITALS: BMI 24.2
--- NOTE | 2019-02-15 12:50 | RAD_ITS ---
STUDY: X-RAY - CERVICAL SPINE REASON FOR EXAM: Female, 63 years old. Neck and back pain. TECHNIQUE: 5 view(s) of the cervical spine were obtained on 6 images. COMPARISON: None FINDINGS: Mild generalized osteopenia. Normal anterior atlantoaxial articulation. Normal odontoid process. Normal cervical lordosis. Normal vertebral bodies and endplates. Intervertebral disc space narrowing at C4-5, C5-6 and C6-7 with osteophyte formation most marked at C6-7. Diffuse uncovertebral and facet sclerosis. The soft tissue structures are unremarkable. RAD/Cerv Spine 4 or 5 Views IMPRESSION: Osteopenia with cervical spondylosis as described. Electronically Signed: Eugenio Balderas MD at 17:59 EDT , Service support ,
--- NOTE | 2019-02-15 12:51 | RAD_ITS ---
STUDY: X-RAY - LEFT SHOULDER REASON FOR EXAM: Female, 63 years old. Shoulder pain. TECHNIQUE: 2 view(s) of the shoulder on 4 images. COMPARISON: None. FINDINGS: Mild generalized osteopenia. Mild arthrosis of the glenohumeral joint Normal acromioclavicular joint. Normal acromion. Normal humeral head and visualized proximal humerus. The soft tissue structures are unremarkable. Normal visualized pulmonary apex. RAD/Shoulder min 2 Views IMPRESSION: Osteopenia with arthrosis of the glenohumeral joint. No acute finding. Electronically Signed: Eugenio Balderas MD at 14:00 EDT , Service support ,
== END ==
PROVIDERS: Family Provider Internal Medicine; PCP Internal Medicine; Referring Provider Internal Medicine; Visit Provider Internal Medicine
DX: M54.12 Radiculopathy, cervical region (principal)
CPT/HCPCS: 72050; 73030

== ENCOUNTER 2019-03-16 10:00 | Outpatient (RCR) | payer BC, SELFPAY ==
[2018-10-11 12:37] VITALS: BMI 24.2
--- NOTE | 2019-02-22 14:42 | HP.PTEVAL ---
Patient's Visit Information CHALINO PORTILLO is a 63 year old F referred to Physical Therapy by Kenia Bella DO with a diagnosis of CERVICAL RADICULOPATHY. Date of Evaluation: 02/22/19 Physical Therapist: Leigh Avila PT, Cert MDT - Visit Plan Frequency: 2-3x /Week Duration: 4-6 Weeks Plan: MODALITIES NEEDED. POSTURE CORRECTION/STRENGTHENING, INSTRUCTION IN APPROPRIATE BODY MECHANICS AND ACTIVITY MODIFICATIONS. KENNEDY UE ROM, STRETCHING AND STRENGTHENING. HEP INSTRUCTION. - Subjective Findings: Work/Leisure: RETIRED IN DEC 2018. 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 Disability: NO. Present symptoms: LEFT SHOULDER BLADE PAIN FOR MONTHS. CHEST PAIN. LEFT > RIGHT . NECK PAIN IN BACK AND SOME IN FRONT. LEFT ARM PAIN. NUMBNESS AND TINGLING ALL THE WAY DOWN LEFT UE TO THE FINGERS. INTERMITTENT RIGHT ARM PAIN AND NUMBNESS. DOESNT' GO BELOW THE ELBOW ON THE RIGHT. Present since: JUNE 2018 LEFT SHOULDER BLADE PAIN STARTED BUT NECK PAIN FOR YEARS. Pain Scale: Worst - 7/10 Least - /10. Currently: 05/30. Commenced as a result of: NO APPARENT REASON. Symptoms at onset: NECK. Worse: LOOKING UP, RIDING IN THE CAR, LIFTING GROCERY BAG, PULLING, POLISHING FURNITURE. REACHING OR LIFTING OVER HEAD. PLANKS - RESTING BODY WEIGHT ON SHLDS, LYING ON LEFT SIDE/SHLD, RAISING LEFT ARM IN CERTAIN WAYS. RESTING ARMS ON ARM RESTS. Better: *GABAPENTIN FOR A WEEK - HELPING A LOT, NOT PUSHING AND PULLING AND LIFTING, NOT RIDING IN THE CAR, KEEPING HEAD SUPPORTED, ICE AND HEAT GIVE MINIMAL RELIEF, IBUPROFEN HELPS A LITTLE. Disturbed sleep: YES. Previous history/Previous treatment: CHIROPRACTOR OFF AND ON NEEDED STARTING APPROX 2009. LAST BRITTANY'T YESTERDAY. CHIRO HELPS PER PATIENT REPORT. MASSAGE THERAPY - HELPS. NO INJECTIONS. NO SURGERY ON NECK OR SHOULDERS. PATIENT REPORTS THE CHIROPRACTOR SAID SHE HAS MUSCLE SPASMS. Dizziness: NO. Tinnitis: NO. Nausea: NO. Shortness of Breath: NO. Difficulty Swollowing: NO. Gait: NORMAL. Accidents: NO. Unexplained weight loss: NO. Imaging: KENNEDY UE NCT ABOUT 2-3 YEARS AGO - NEGATIVE. RECENT SPINE X-RAYS - SEE [facility] EMR. Osteopenia with arthrosis of the glenohumeral joint. Intervertebral disc space narrowing at C4-5, C5-6 and C6-7 with osteophyte. formation most marked at C6-7. Diffuse uncovertebral and facet sclerosis. PMH/Recent major surgery: OSTEOPENIA, HTN, HIGH CHOLESTEROL, ALLERGIES. TWO KIDNEY STONES REMOVED THIS YEAR. GALLBLADDER REMOVED LAST YEAR. KENNEDY FOOT SURGERIES. 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 UP TO 7 HOURS IN DENTAL CHAIR AT TIMES WITH SPINE PAIN. CTR RIGHT ABOUT 10 YEARS AGO. OTHER: RETIRED DEC 21 2018. STARTED WORKING OUT AT THE [employer] X 3 WEEKS STARTING END OF DEC AND HAD TO STOP DUE TO PAIN IN SHOULDERS. NO PAIN IN SHOULDERS BEFORE WORKING OUT. PAIN ACROSS CLAVICLES TOO. GETS CRUNCHING IN NECK WHEN MOVES HEAD SIDE TO SIDE. - Objective Sitting Posture/Standing Posture: MILD FORWARD HEAD AND ROUNDED SHOULDERS. SLOUCHED. Active Correction of posture: BETTER. Other Observations: INDEP GAIT AND TRANSFERS. Motor deficit: KENNEDY UE'S 5/5 WITH MMT'ING MID-RANGE. Sensory deficit: DECREASED LEFT UE LIGHT TOUCH SENSATION COMPARED TO RIGHT. ROM deficit: RIGHT UE FULL ALL PLANES. LEFT UE FULL ROM EXCEPT SHLD FLEX APPROX 20% LIMITED IN SUPINE AND PAINFUL AT THE END OF THE AVAILABLE RANGE. Reflexes: 2/3 KENNEDY UE'S. Dural Signs: POSITIVE KENENDY UE'S. Cervical Mvmt Loss: Flex: NIL. Pro: NIL. Ext: MOD. Ret: MOD. RSB: MOD. LSB: MOD TO KISHORE. R Rot: MIN. L Rot: MOD. Postural strength: POOR. Palpation: VERY TIGHT AND TENDER CERVICAL MUSCULATURE AND LEFT SHOULDER MUSCULATURE THROUGHOUT. - Goals Goal 1:: DECREASE C/O HEAD, NECK AND KENNEDY UE Goal Time Frame: 4-6 Weeks Goal 2:: IMPROVE DRVING, ADL, LIFTING, READING, SLEEP, HOUSEWORK AND RECREATIONAL FUNCTION Goal Time Frame: 4-6 Weeks Goal 3:: INSTRUCT IN PROPHYLAXIS Goal Time Frame: 4-6 Weeks - Rehabilitation Potential Rehabilitation Potential: Fair - Anticipated Interventions Patient/Client Instruction: Educate patient on: Condition, Plan of Care, Risk Factors, Benefits of Fitness Program For the Purpose of:: To improve self management Therapeutic Exercise to Include: Strength training, Endurance training, Body mechanics, Postural training, Flexibilty training, Passive ROM, Active ROM, Scapular Strength/Stabilization For the Purpose of:: To decrease pain, To increase ROM, To improve muscle performance and motor function, To increase tolerance to activity/condition/position, To improve ability of physical actions for home/community/work/leisure Manual Therapy Techniques to Include: Mobilization, Passive ROM, Soft tissue mobilization For the Purpose of:: To decrease pain, To increase ROM, To improve nutrient delivery to tissue TENS: Yes Cryotherapy (ice pack, ice massage): Yes Thermo therapy (hot pack): Yes Ultrasound (thermal/non thermal): Yes For the Purpose of:: To decrease pain, To decrease swelling/inflammation, To increase ROM, To improve nutrient delivery to tissue Thank you for the opportunity to evaluate your patient. For Medicare and Medicare HMO plans, please review the plan of care and approve it. It will need to be FAXED BACK to us at [phone] for Medicare purposes. For Medicare only, by signing this I certify the plan of care. Please let me know if there are questions or concerns regarding this plan of care. Physician Signature: Date:
--- NOTE | 2019-03-16 11:45 | HP.PTDCSUM ---
HP - PT D/C Summary It has been my pleasure to treat CHALINO PORTILLO under orders from Kenia Bella DO, for the diagnosis of CERVICAL RADICULOPATHY for a total of 10 visit(s). Discharge Date: 03/16/19 Please see the following information for a summary of their discharge status. - Subjective Subjective: PATIENT REPORTS SHE IS PRETTY MUCH SYMPTOM FREE AT THIS POINT AND HAS RESUMED HER WATER CLASS. HEP IS GOING GOOD. - Pain NECK Pain Intensity (Out of 10): 0 LEFT SHOULDER Pain Intensity (Out of 10): 0 RIGHT SHOULDER Pain Intensity (Out of 10): 0 - Overall Improvement % Improvement: 99 - Objective Objective/Function: ALL GOALS MET. PATIENT HAS RESPONDED VERY WELL TO PT AND IS INDEP WITH A HEP NOW. UPON EXAM TODAY: Cervical Mvmt Loss: Flex: NIL. Pro: NIL. Ext: MIN. Ret: MIN. RSB: MIN. LSB: MIN. R Rot: MIN. L Rot: MOD - Goals Goal 1:: DECREASE C/O HEAD, NECK AND KENNEDY UE Goal Progress: Goal Met Goal 2:: IMPROVE DRVING, ADL, LIFTING, READING, SLEEP, HOUSEWORK AND RECREATIONAL FUNCTION Goal Progress: Goal Met Goal 3:: INSTRUCT IN PROPHYLAXIS Goal Progress: Goal Met - Plan Plan: D/C. PATIENT IS AGREEABLE. - D/C Information If there are questions or concerns regarding this patient's physical therapy, please feel free to call me at [phone]. Thank you for the referral of this patient. Sincerely, Leigh Avila, PT, Cert MDT
== END 2019-03-16 19:00 | disposition home or self-care (01) ==
LOC: PT 10:00
PROVIDERS: Family Provider Internal Medicine; PCP Internal Medicine; Visit Provider Internal Medicine
DX: M54.12 Radiculopathy, cervical region (principal)
CPT/HCPCS: 97014; 97035; 97110; 97162; 97530; G0283

== ENCOUNTER → 2019-05-04 10:21 | Outpatient (CLI) | payer BC, SELFPAY ==
[2018-10-11 12:37] VITALS: BMI 24.2
--- NOTE | 2019-05-04 10:25 | MRI_ITS ---
STUDY: MRI CERVICAL SPINE WITHOUT CONTRAST REASON FOR EXAM: Female, 63 years old. radiculopathy -- neck pain into left arm since Jan 2019 TECHNIQUE: Standardized fat and water weighted pulse sequences were obtained in the sagittal and axial planes. COMPARISON: Cervical spine films February 15, 2019 FINDINGS: Normal foramen magnum and brainstem-cervical cord junction. Normal craniovertebral junction. Normal anterior atlantoaxial articulation. Normal odontoid process. Decreased cervical lordosis. Normal vertebral bodies and posterior osseous elements. C2-3: Normal endplates. Normal disc height, signal and morphology. Normal central canal and intervertebral neural foramina. C3-4: Normal endplates. Normal disc height, signal and morphology. Normal central canal and intervertebral neural foramina. C4-5: Mild endplate spurring.. Normal disc height, signal and minimal bulging of the disc.. Normal central canal and intervertebral neural foramina. C5-6: Mild endplate spurring.. Normal disc height, signal and mild bulging disc osteophyte complex. Normal central canal. Moderate bilateral neuroforaminal stenosis slightly more advanced on the left secondary to disc and bony hypertrophy C6-7: Mild endplate spurring.. Narrowed disc height, normal signal and mild bulging disc osteophyte complex.. Normal central canal. Moderate left neuroforaminal stenosis and more severe narrowing on the right secondary to disc and bony hypertrophy. C7-T1: Normal endplates. Normal disc height, signal and morphology. Normal central canal and intervertebral neural foramina. Normal cervical cord. Normal visualized soft tissue structures. Findings are not changed appreciably since previous study given differences in imaging parameters and techniques MRI/Spine Cervical (Routine) IMPRESSION: No evidence for acute fracture or other significant bony pathology. Spondylosis most severe at C5-6 and C6-7 Bilateral neuroforaminal stenosis at C5-6 greater on the left and C6-7 greater on the right secondary to disc disease and bony hypertrophy Electronically Signed: Robe Kemp MD at 17:30 EST , Service support ,
== END ==
PROVIDERS: Family Provider Internal Medicine; PCP Internal Medicine; Referring Provider Internal Medicine; Visit Provider Internal Medicine
DX: M54.12 Radiculopathy, cervical region (principal)
CPT/HCPCS: 72141

== ENCOUNTER 2019-07-25 12:00 | Outpatient (RCR) | payer BC, SELFPAY ==
[2018-10-11 12:37] VITALS: BMI 24.2
--- NOTE | 2019-06-30 17:25 | HP.PTEVAL ---
Patient's Visit Information CHALINO PORTILLO is a 63 year old F referred to Physical Therapy by Dipika CARDENAS with a diagnosis of S/P CERVICAL SPINAL FUSION. Date of Evaluation: 06/30/19 Physical Therapist: Steven Almanzar, PT, Cert MDT, OCS - Visit Plan Frequency: 2x /Week Duration: 4 Weeks Plan: S/P CERVICAL FUSION Jun 09. PT INTERVENTIONS CERVICAL ROM,POSTURAL EX'S,BUE STRENGTHENING, - Subjective Subjective: This 63 y/o female presents to physical therapy with s/p cervical spinal fusion done Dr Cardenas at [facility] on Jun 09 d/c next day.Patient had anterior approach with cadevar bone/plate C5-7. Prior to PT didnt help pain patient then had MRI. No pain management. Patient has no pain or arms occassional left cervical pain with shoulder.especially on left side. Aggaraveting symptoms walking dogs,weakness in hands and arms affects ADL'S and houseworks tasks. Alleviating factors valuim. Patien denies KENNEY/tinntus/dizziness. Patient denies parathesia/tingling ,occassaionlly left side.Patient surgery affects ADL's ,houseworks tasks. Patient condtion affects QOL. Patient Precautions 5#. Plan to RTD 6 weeks. SOCAIL: . VOCATION: - Objective POSTURE: mild foward posture. NEURO: denies parathesia/tingling,reflexes C5-6-7 2/3. SKIN: inscison well approxaimate. AROM: BUE WFL. CERVICAL ROM: flexion min loss,extension mod loss,lateral flexion,rotation mod loss. MMT: grossly 4/5 except shoulders 4-/5. PROPERTY CLERK STRENGTH: R : 55#,L 45# - Special Tests C/S Radiculapathy - Left Upper limb tension test: Negative C/S Radiculapathy - Right Upper limb tension test: Negative - Goals Goal 1:: Independant with HEP Goal Time Frame: 4-6 Weeks Goal 2:: Improve posture for ADL'S. Goal Time Frame: 4-6 Weeks Goal 3:: Patient to decrease cervical and arm symptoms by 75% or > to improve function. Goal Time Frame: 4-6 Weeks Goal 4:: Patient to increase cervical rotation and lateral flexion min loss for function of recovery. Goal Time Frame: 4-6 Weeks Goal 5:: Patient to improve neck owestry score by 5 points or > to improve QOL. Goal Time Frame: 2-4 Weeks - Rehabilitation Potential Physical Therapy Diagnosis: This patient underwent s/p cervical fusion with decrease ROM ,strength impairs function with ADL'S and housework tasks thus benifit from skilled PT Rehabilitation Potential: Good - Anticipated Interventions Patient/Client Instruction: Educate patient on: Condition, Plan of Care For the Purpose of:: To decrease pain, To increase ROM, To improve muscle performance and motor function, To improve ability to perform ADL's, To increase tolerance to activity/condition/position, To improve ability of physical actions for home/community/work/leisure, To improve health of tissue, To decrease soft tissue restriction, To increase flexibility/ROM, To improve ability to perform tasks related to life management Therapeutic Exercise to Include: Strength training, Postural training, Flexibilty training, Active ROM Comment: BUE For the Purpose of:: To decrease pain, To increase ROM, To improve muscle performance and motor function, To improve ability to perform ADL's, To increase tolerance to activity/condition/position, To improve performance and independence with ADL's, To improve ability of physical actions for home/community/work/leisure, To increase flexibility/ROM, To improve ability to perform tasks related to life management Cryotherapy (ice pack, ice massage): Yes Thermo therapy (hot pack): Yes For the Purpose of:: To decrease pain, To improve nutrient delivery to tissue, To increase oxygenation perfusion Thank you for the opportunity to evaluate your patient. For Medicare and Medicare HMO plans, please review the plan of care and approve it. It will need to be FAXED BACK to us at [phone] for Medicare purposes. For Medicare only, by signing this I certify the plan of care. Please let me know if there are questions or concerns regarding this plan of care. Physician Signature: Date:
== END 2019-07-25 19:00 | disposition home or self-care (01) ==
LOC: PT 12:00
PROVIDERS: PCP Internal Medicine
DX: Z98.1 Arthrodesis status (principal)
CPT/HCPCS: 97110; 97162

== ENCOUNTER → 2019-09-06 12:15 | Outpatient (CLI) | payer BC, SELFPAY ==
[2018-10-11 12:37] VITALS: BMI 24.2
--- NOTE | 2019-09-06 12:18 | RAD_ITS ---
STUDY: X-RAY - CERVICAL SPINE REASON FOR EXAM: Female, 63 years old. follow up cervical fusion TECHNIQUE: 5 view(s) of the cervical spine were obtained. COMPARISON: 02/15/2019 FINDINGS: Normal anterior atlantoaxial articulation. Normal odontoid process. Interval anterior cervical discectomy and fusion from C5 through C7 with anatomic alignment and bony bridging. Normal cervical lordosis. Normal vertebral bodies and endplates. Normal disc space heights. Normal visualized intervertebral neuroforamina. The soft tissue structures are unremarkable. RAD/Cerv Spine 4 or 5 Views IMPRESSION: Interval anterior cervical discectomy and fusion from C5 through C7 with anatomic alignment and bony bridging. Electronically Signed: Rafat Fletcher MD at 12:56 EDT Tel , Service support ,
== END ==
PROVIDERS: PCP Internal Medicine
DX: Z98.1 Arthrodesis status (principal)
CPT/HCPCS: 72050

== ENCOUNTER → 2019-11-10 15:14 | Outpatient (CLI) | payer BC, SELFPAY ==
[2018-10-11 12:37] VITALS: BMI 24.2
--- NOTE | 2019-11-10 15:16 | BI_ITS ---
MAMMOGRAPHY - BILATERAL SCREENING 3-D TOMOSYNTHESIS REASON FOR EXAM: Female, 63 years old. Routine screening PERTINENT HISTORY: FAM HX TERRENCE GMA AGE 70S -- GAINED 30# -- RT STEREO BX 2002 -- RT MOLE REMOVED 5 WEEKS AGO. TECHNIQUE: 2-D mammograms and 3-D Tomosynthesis of the breast (s) were performed. CAD was performed. COMPARISON: 09/30/2018 FINDINGS: The breast composition is composed of scattered fibroglandular density. Stable appearance of a biopsy clip in the right breast Scattered benign calcifications are seen. No dense spiculated masses or suspicious microcalcifications are identified. No architectural distortion is identified. There is no skin thickening or retraction. There has been no significant change since the prior study. BI/SCREEN MAMM (CAD) W/KALIE BILAT IMPRESSION: No mammographic signs of malignancy. Routine yearly mammograms recommended. ASSESSMENT CATEGORY: BIRADS Category 2: Benign. A letter regarding these results will be sent to the patient by the facility within 30 days. FOLLOW UP RECOMMENDATION: Yearly follow up mammogram recommended. (A) Approximately 10% of breast cancers are not detected by mammography. A normal mammogram should not delay biopsy of a clinically suspicious abnormality. Electronically Signed: Anderson Horta MD at 8:13 EDT , Service support ,
--- NOTE | 2019-11-10 15:22 | BD_ITS ---
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 COMPARISON: Comparison is made with prior examination dated 02-17-17. FINDINGS: Lumbar Spine (L1-L4): g/cm2 (1.002) / T-score (-1.5) / Z-score (-0.1) Findings are suggestive of osteopenia with a low fracture risk. Left Femur Total: g/cm2 (0.839) / T-score (-1.3) / Z-score (-0.3) Left Femoral Neck: g/cm2 (0.810) / T-score (-1.6) / Z-score (-0.3) Right Femur Total: g/cm2 (0.864) / T-score (-1.1) / Z-score (-0.1) Right Femoral Neck: g/cm2 (0.823) / T-score (-1.7) / Z-score (-0.3) The T-Scores on the most recent prior examination were: Lumbar Spine (L1-L4): There has been worsening of bone density since the previous examination. Left Femur Total: which represents a worsening of 5.9%. Right Femur Total: which represents a worsening of 4.4%. BD/Dexa Bone Density Study IMPRESSION: The patient is considered osteopenic as outlined below according to World Liborio Organization (WHO) criteria with a moderate fracture risk. There has been worsening of bone density since the previous examination. Reference Information: The T-score is the number of standard deviations above or below the standard which is normal for young adults at their peak bone mineral density. The World Health Organization (WHO) interprets the T-scores as follows: Above -1 Normal bone density Between -1 and -2.5 Osteopenia Equal to / or below -2.5 Osteoporosis As a practical clinical guideline, osteopenia may be graded as follows: Mild -1 through -1.5 Moderate -1.6 through -2.0 Severe -2.1 through -2.4 The Z-score is the number of standard deviations above or below age-matched controls. A Z-score of less than -1.5 would be considered abnormal. References: 1. NIH Osteoporosis and Related Bone Diseases http://www.osteo.org 2. International Society for Clinical Densitometry http://www.iscd.org 3. National Osteoporosis Foundation http://www.nof.org Electronically Signed: Parker Rojas, at 11:58 EDT , Service support ,
== END ==
PROVIDERS: PCP Internal Medicine; Referring Provider Internal Medicine; Visit Provider Internal Medicine
DX: Z12.31 Encounter for screening mammogram for malignant neoplasm of breast (principal); Z78.0 Asymptomatic menopausal state; M85.80 Other specified disorders of bone density and structure, unspecified site; Z87.891 Personal history of nicotine dependence
CPT/HCPCS: 77063; 77067; 77080

== ENCOUNTER → 2019-11-15 13:49 | Outpatient (CLI) | payer BC, SELFPAY ==
[2018-10-11 12:37] VITALS: BMI 24.2
--- NOTE | 2019-11-15 13:51 | RAD_ITS ---
STUDY: X-RAY - LUMBAR SPINE REASON FOR EXAM: Female, 63 years old. Severe back pain radiating into legs TECHNIQUE: 5 view(s) of the lumbar spine were obtained including oblique views. COMPARISON: Comparison is made with prior study dated 10-02-19. FINDINGS: There is straightening of the normal lumbar lordosis. There is no substantial scoliosis. There is a normal alignment of the vertebrae. There is multilevel endplate spondylosis of the lumbar vertebrae. There is multi-level degenerative disc disease with multi-level disc space narrowing. There is atherosclerotic calcification of the abdominal aorta without a demonstrated aneurysm. RAD/L/S Spine Min 4 Views IMPRESSION: Degenerative changes of the spine, as detailed above. Straightening of the normal lumbar lordosis. Electronically Signed: Parker Rojas, at 14:50 EDT , Service support ,
== END ==
PROVIDERS: PCP Internal Medicine; Referring Provider Internal Medicine; Visit Provider Internal Medicine
DX: M54.5 Low back pain (principal)
CPT/HCPCS: 72110

== ENCOUNTER → 2019-11-23 10:57 | Outpatient (CLI) | payer BC, SELFPAY ==
[2018-10-11 12:37] VITALS: BMI 24.2
--- NOTE | 2019-11-23 11:00 | MRI_ITS ---
STUDY: MRI LUMBAR SPINE WITHOUT CONTRAST REASON FOR EXAM: Female, 63 years old. low back pain, hip pain TECHNIQUE: Standardized fat and water weighted pulse sequences were obtained in the sagittal and axial planes. COMPARISON: X-ray dated 11/15/2019 FINDINGS: Normal lumbar lordosis. There is no substantial scoliosis. Normal conus medullaris that terminates at the L1 L1-2: There is minimal disc space narrowing and endplate spondylosis. There is no significant disc herniation, central canal or foraminal stenosis. L2-3: There is minimal disc space narrowing and endplate spondylosis. There is no significant disc herniation, central canal or foraminal stenosis. L3-4: There is mild disc space narrowing and endplates spondylosis. Mild disc bulge and facet arthropathy without significant central canal stenosis. Mild right and mild left foraminal stenosis. L4-5: There is moderate disc space narrowing and endplates spondylosis. Moderate disc bulge and facet arthropathy asymmetric to the right with moderate right foraminal stenosis. No significant central canal or left foraminal stenosis. L5-S1: There is moderate disc space narrowing and endplates spondylosis. Mild disc bulge and facet arthropathy without significant central canal stenosis. Moderate right and mild left foraminal stenosis. Normal visualized sacral ala. MRI/Spine Lumbar (Routine) IMPRESSION: L4/L5: Moderate right foraminal stenosis. L5/S1: Moderate right foraminal stenosis. Electronically Signed: Tamra Mai MD at 11:49 EDT Tel , Service support ,
== END ==
PROVIDERS: PCP Internal Medicine; Referring Provider Internal Medicine; Visit Provider Internal Medicine
DX: M54.5 Low back pain (principal)
CPT/HCPCS: 72148

== ENCOUNTER 2020-01-12 14:00 | Outpatient (RCR) | payer BC, SELFPAY ==
[2018-10-11 12:37] VITALS: BMI 24.2
--- NOTE | 2019-12-21 10:04 | HP.PTEVAL ---
Patient's Visit Information CHALINO PORTILLO is a 64 year old F referred to Physical Therapy by Dr. Kenia Martinez DO with a diagnosis of LOW BACK PAIN WITH RADICULOPATHY. Date of Evaluation: 12/21/19 Physical Therapist: Leigh Avila PT, Cert MDT - Visit Plan Frequency: 2-3x /Week Duration: 4-6 Weeks Plan: US, E-STIME WITH (PATIENT ALSO HAS TENS UNIT AT HOME AND INSTRUCTION GIVEN TO START USING ON LOW BACK). POSTURE CORRECTION/STRENGTHENING, INSTRUCTION IN APPROPRIATE BODY MECHANICS AND ACTIVITY MODIFICATIONS. DLS STARTING WITH A NEUTRAL SPINE PROGRESSING ROM TOLERATED. KENNEDY LE ROM, STRETCHING AND STRENGTHENING. HEP INSTRUCTION. - Subjective Work/Leisure: RETIRED. Disability: NO. Present symptoms: KENNEDY LOW BACK PAIN LEFT > RIGHT RADIATES AROUND TO FRONT OF HIPS AND DOWN LEGS. RIGHT THIGH, LEFT THIGH, LEFT LEG, LEFT FOOT. SOME LLE TINGLING BUT MOSTLY A DULL FEELING INSIDE THE LEFT LEG. Present since: CHRONIC WITH INCREASE NOVEMBER 13 2019. Pain Scale: WORST 5/10, LEAST 3/10. Currently: 3/10. Commenced as a result of: COULDN'T GET OUT OF BED NOVEMBER 13 2019 DUE TO SEVERE PAIN IN LOW BACK. IN THE PAST HAS BEEN ABLE TO DO STRETCHES AND WALK IT OUT BUT PHYSICALLY COULD NOT GET OUT OF BED THIS TIME AND THE PAIN WAS MORE SEVERE IN THE BACK. HAD TO LIFT LEG FOR HER AND EVENTULLY GOT ON FEET AT NOON THE NEXT DAY. ON CRUTCHES FOR ABOUT 4 DAYS. Worse: SNEEZING, PULLING, PUSHING, BENDING FORWARD, STANDING STILL, WALKING TOO FAR, WALKING ON UNEVEN SURFACES, LYING FLAT, JARRING, CARRYING GROCERY BAG, SITTING AT A 90 DEG ANGLE, SITTING WITHOUT LUMBAR SUPPORT, RIDING IN THE CAR ESPECIALLY ON ROUGH ROADS. Better: LYING IN RECLINER RECLINED WITH LUMBAR SUPPORT, PRESS-UPS GIVEN BY DR. MARTINEZ. Disturbed sleep: YES. Previous history/Previous treatment: 2 YEARS AGO PHYSICAL THERAPY AND IT HELPED A LOT BUT DIDN'T REMOVE THE PAIN. PAIN WAS INTERMITTENT BACK THEN. NO BACK SURGERY. NO AB'S BUT IS SCHEDULED FOR AN INJECTION THURSDAY WITH DR. DICKSON IN [place]. Treatment this episode: PREDNISONE X 12 DAYS, GABAPENTIN. Coughing/sneezing/straining: POSITIVE. Gait: DISTANCE LIMITED DUE TO STABBING PAIN IN BACK. Difficulty initiating urinatin: NO. Accidents: NO. Unexplained weight loss: NO. Imaging: LUMBAR MRI RECENTLY - IMPRESSION: L4/L5: Moderate right foraminal stenosis. . L5/S1: Moderate right foraminal stenosis. PMH: ACDF JUN 10 2019 - Objective Sitting/Standing Posture: POOR. PATIENT PREFERS TO STAND MOST OF VISIT. Lordosis: REDUCED. Lateral shift: NO. Relevant shift: N/A. Active Correction of posture: NE. Other Observations: INDEP GAIT WITHOUT AD BUT DECREASED CADANCE AND GUARDED. PATIENT IS UE DEPENDENT TO TRANSFER FROM STAND TO SIT. SHE IS ABLE TO TRANSFER SIT TO STAND WITHOUT UE'S THOUGH. RISING FROM SITTING IS DIFFICULT BUT NOT PAINFUL PER PATIENT REPORT. Motor deficit: KENNEDY LE STRENGTH 5/5 WITH MMT'ING EXCEPT RIGHT HIP 4/5 AND LEFT 4-/5. Sensory deficit: KENNEDY LE LIGHT TOUCH SENSATION INTACT AND SYMMETRICAL. ROM deficit: TIGHT LLE HS AND GASTROC SOLEUS COMPLEX. Reflexes: NT. Dural Signs: NEGATIVE RIGHT LE. POSITIVE LEFT LE. Lumbar mvmt loss: flex - MOD - PULLS IN LOW BACK. ext - MOD - PINCHES IN LOW BACK. R SG - MOD - PULLS IN LEFT LB. L SG - MOD - INCREASES LEFT LB. Core strength: POOR. Palpation: INCREASED MUSCLE TONE KENNEDY PARASPINALS. NO ACUTE TENDERNESS. OTHER: PATIENT IS ABLE TO INDEP'LY TRANSFER FROM SIT TO SUPINE AND REVERSE BUT VERY SLOW AND GUARDED. SHE IS UNABLE TO GET COMFORTABLE IN SUPINE. TREATMENT: NEUROMUSCULAR REEDUCATION - RETRAINING OF MVMT AND POSTURE FOR SITTING, LYING AND STANDING ACTIVITIES. INSTRUCTED IN GENTLE SEATED KENNEDY LE DURAL STRETCHING X 5 TO 10 REPS EA LEG EVERY ONE TO TWO HOURS TOLERATED. HOME TENS USE INSTRUCTION. INSTRUCTED IN AVOIDANCE OF PERIPHERALIZATION OF SX'S AND PATIENT COMMUNICATED A GOOD UNDERSTANDING OF ALL INSTRUCTIONS AFTER GIVEN TODAY. - Goals Goal 1:: DECREASE C/O OF BACK AND LE SX'S. Goal Time Frame: 4-6 Weeks Goal 2:: IMPROVE PERSONAL CARE, LIFTING, WALKING, SITTING, STANDING, SLEEP, SOCIAL LIFE, TRAVEL AND HOMEMAKING FUNCTION. Goal Time Frame: 4-6 Weeks Goal 3:: INSTRUCT IN PROPHYLAXIS Goal Time Frame: 4-6 Weeks - Anticipated Interventions Patient/Client Instruction: Educate patient on: Condition, Plan of Care, Risk Factors, Benefits of Fitness Program For the Purpose of:: To improve self management Therapeutic Exercise to Include: Strength training, Body mechanics, Postural training, Neuromotor development, In an aquatic setting, Dynamic Lumbar Stabilization For the Purpose of:: To decrease pain, To increase ROM, To improve muscle performance and motor function, To increase tolerance to activity/condition/position, To improve ability of physical actions for home/community/work/leisure Thank you for the opportunity to evaluate your patient. For Medicare and Medicare HMO plans, please review the plan of care and approve it. It will need to be FAXED BACK to us at [phone] for Medicare purposes. For Medicare only, by signing this I certify the plan of care. Please let me know if there are questions or concerns regarding this plan of care. Physician Signature: Date:
--- NOTE | 2020-02-20 17:56 | HP.PT.NRP ---
CHALINO PORTILLO was seen in my office for initial evaluation on 12/21/19. The following Plan of Care was established for this patient: Initial Frequency: 2-3x /Week Initial Duration: 4-6 Weeks Patient/Client Instruction: Educate patient on: Condition, Plan of Care, Risk Factors, Benefits of Fitness Program For the Purpose of:: To improve self management Therapeutic Exercise to Include: Strength training, Body mechanics, Postural training, Neuromotor development, In an aquatic setting, Dynamic Lumbar Stabilization For the Purpose of:: To decrease pain, To increase ROM, To improve muscle performance and motor function, To increase tolerance to activity/condition/position, To improve ability of physical actions for home/community/work/leisure This patient was last seen in our office 01/12/20. Pertinent comments regarding their Physical therapy will appear below: This patient has not returned to Physical Therapy and is appropriate to return to MD for further follow-up as needed. At this point I will be discontinuing this patient from physical therapy. I would be happy to see this patient again in the future if found appropriate by the physician. Thank you! Leigh Avila, PT, Cert MDT
== END 2020-01-12 19:00 | disposition home or self-care (01) ==
LOC: PT 14:00
PROVIDERS: PCP Internal Medicine; Referring Provider Internal Medicine; Visit Provider Internal Medicine
DX: M54.16 Radiculopathy, lumbar region (principal)
CPT/HCPCS: 97014; 97035; 97110; 97112; 97162; 97530; G0283

== ENCOUNTER → 2020-01-16 11:31 | Outpatient (CLI) | payer BC, SELFPAY ==
[2018-10-11 12:37] VITALS: BMI 24.2
--- NOTE | 2020-01-16 11:33 | RAD_ITS ---
STUDY: X-RAY - ABDOMEN/PELVIS REASON FOR EXAM: Female, 64 years old. Kidney stone, pain since October, mostly in the back TECHNIQUE: Single AP view of the abdomen / pelvis. COMPARISON: Comparison is made with prior study dated 07/21/2018. FINDINGS: Normal visualized lung bases. There is an abundance of fecal material throughout the colon. Stable 2 mm calcification in the right hemipelvis. Normal soft tissue structures. There are diffuse degenerative changes of the visualized lumbar spine. RAD/Abdomen Single View IMPRESSION: Stable 2 mm rounded calcification in the right hemipelvis. This may lie in the distal portion of the right ureter. Electronically Signed: Parker Rojas, at 11:23 EDT , Service support ,
== END ==
PROVIDERS: PCP Internal Medicine; Referring Provider Urology; Visit Provider Urology
DX: N20.0 Calculus of kidney (principal)
CPT/HCPCS: 74018

== ENCOUNTER → 2020-01-31 13:42 | Outpatient (CLI) | payer BC, SELFPAY ==
[2018-10-11 12:37] VITALS: BMI 24.2
[2020-01-31 15:05] LABS: Absolute Lymphocyte Count 3.07 X10^3/uL (0.83-4.51); Absolute Neutrophil Count 3.3 X10^3/uL (2.0-7.7); Basophil# 0.08 X10^3/uL; Basophil% 1.1 % (0-1); Eosinophil# 0.45 X10^3/uL; Hematocrit 44.4 % (37-47); Hemoglobin 14.5 g/dL (12.0-15.0); Lymphocyte # 3.07 X10^3/ul (4.0); Lymphocyte % 40.9 % (19-41); Mean Corp Hgb Conc 32.7 g/dL (32-36); Mean Corpuscular Hgb 27.8 pg (27.0-32.0); Mean Corpuscular Volume 85.2 fL (81-99); Mean Platelet Vol. 9.8 fl (6.2-12.0); Monocyte# 0.55 X10^3/uL; Monocyte% 7.3 % (0-10); NRBC Flagged by Analyzer 0 % (0-5); Neutrophil # 3.33 X10^3/uL (2.7-7.7); Neutrophil % 44.4 % (47-70); Platelet Count 345 K/mm3 (150-450); RBC Distribution Width CV 13.6 % (11.6-14.6); RBC Distribution Width SD 42.6 fl (35.1-43.9); Red Blood Count 5.21 M/mm3 (4.2-5.4); White Blood Count 7.5 K/mm3 (4.4-11.0)
[2020-01-31 15:22] LABS: Microalbumin,Random Urine 34.4 mg/L (NO RANGE EST.); Microalbumin:Creatinine Ratio 70.8 mg/g CRE (<30 mg/g CRE)
[2020-01-31 15:23] LABS: Hemoglobin A1c 6.3 % (3.8-5.6)
[2020-01-31 15:39] LABS: ALB/GLOB Ratio 0.9 RATIO (0.9-2.4); AST(SGOT) 21 U/L (15-37); Alanine Aminotransfer ALT/SGPT 32 U/L (13-56); Albumin, Serum 3.8 g/dL (3.2-5.0); Alkaline Phosphatase 89 U/L (45-117); Anion Gap 7 (5-15); BUN 14 mg/dL (7-18); BUN/Creat Ratio 20.2 RATIO (10-20); Calcium,Total 9.6 mg/dL (8.5-10.1); Chloride 108 mmol/L (98-107); Cholesterol 267 mg/dL (200); Creatinine, Serum 0.69 mg/dL (0.55-1.02); EST Glomerular Filtration Rate 91 mL/min (>60); Est Glom Filt Rate - Afr Amer 110 mL/min (>60); Globulin 4.1 g/dL (2.2-4.2); Glucose 107 mg/dL (74-106); High Density Lipoprotein 54 mg/dL; Potassium 3.6 mmol/L (3.5-5.1); Protein, Total 7.9 g/dL (6.4-8.2); Sodium Level 142 mmol/L (136-145); Triglycerides 205 mg/dL; Very Low Density Lipoprotein 41 mg/dL (5-40)
== END ==
PROVIDERS: PCP Internal Medicine; Referring Provider Internal Medicine; Visit Provider Internal Medicine
DX: E78.2 Mixed hyperlipidemia (principal); R73.01 Impaired fasting glucose
CPT/HCPCS: 36415; 80053; 80061; 82043; 82570; 83036; 85025

== ENCOUNTER → 2020-05-07 11:00 | Outpatient (CLI) | payer BC, SELFPAY ==
[2018-10-11 12:37] VITALS: BMI 24.2
[2020-05-07 12:05] LABS: Absolute Lymphocyte Count 2.74 X10^3/uL (0.83-4.51); Absolute Neutrophil Count 2.5 X10^3/uL (2.0-7.7); Basophil# 0.09 X10^3/uL; Basophil% 1.4 % (0-1); Eosinophil# 0.59 X10^3/uL; Eosinophils% 9.2 % (0-5); Lymphocyte # 2.74 X10^3/ul (4.0); Lymphocyte % 42.7 % (19-41); Mean Corp Hgb Conc 32.6 g/dL (32-36); Mean Corpuscular Hgb 27.8 pg (27.0-32.0); Mean Corpuscular Volume 85.3 fL (81-99); Mean Platelet Vol. 9.8 fl (6.2-12.0); Monocyte# 0.45 X10^3/uL; NRBC Flagged by Analyzer 0 % (0-5); Neutrophil # 2.51 X10^3/uL (2.7-7.7); Neutrophil % 39.1 % (47-70); Platelet Count 368 K/mm3 (150-450); RBC Distribution Width CV 13.5 % (11.6-14.6); RBC Distribution Width SD 42.5 fl (35.1-43.9); Red Blood Count 5.39 M/mm3 (4.2-5.4); White Blood Count 6.4 K/mm3 (4.4-11.0)
[2020-05-07 12:35] LABS: Vitamin D,25 Hydroxy 65.7 ng/mL
[2020-05-07 12:36] LABS: AST(SGOT) 25 U/L (15-37); Alanine Aminotransfer ALT/SGPT 40 U/L (13-56); Albumin, Serum 4.1 g/dL (3.2-5.0); Alkaline Phosphatase 95 U/L (45-117); Anion Gap 6 (5-15); BUN 22 mg/dL (7-18); BUN/Creat Ratio 31.7 RATIO (10-20); Calcium,Total 9.8 mg/dL (8.5-10.1); Chloride 109 mmol/L (98-107); Cholesterol 257 mg/dL (200); Creatinine, Serum 0.69 mg/dL (0.55-1.02); EST Glomerular Filtration Rate 91 mL/min (>60); Est Glom Filt Rate - Afr Amer 110 mL/min (>60); Globulin 4.2 g/dL (2.2-4.2); Glucose 128 mg/dL (74-106); High Density Lipoprotein 50 mg/dL; Potassium 4.2 mmol/L (3.5-5.1); Protein, Total 8.3 g/dL (6.4-8.2); Sodium Level 142 mmol/L (136-145); Triglycerides 113 mg/dL; Very Low Density Lipoprotein 23 mg/dL (5-40)
[2020-05-07 12:42] LABS: Hemoglobin A1c 6.4 % (3.8-5.6)
== END ==
PROVIDERS: PCP Internal Medicine; Referring Provider Internal Medicine; Visit Provider Internal Medicine
DX: I10 Essential (primary) hypertension (principal); E78.5 Hyperlipidemia, unspecified; R73.01 Impaired fasting glucose; E55.9 Vitamin D deficiency, unspecified
CPT/HCPCS: 36415; 80053; 80061; 82043; 82306; 82570; 83036; 85025

== ENCOUNTER 2020-06-08 11:30 | Outpatient (RCR) | payer BC, SELFPAY ==
[2018-10-11 12:37] VITALS: BMI 24.2
--- NOTE | 2020-05-03 12:04 | HP.PTEVAL ---
Patient's Visit Information CHALINO PORTILLO is a 64 year old F referred to Physical Therapy by Dr. Kenia Bella DO with a diagnosis of LOW BACK PAIN. Date of Evaluation: 05/03/20 Physical Therapist: Leigh Avila PT, Cert MDT - Visit Plan Frequency: 2-3x /Week Duration: 4-6 Weeks Plan: POSTURE CORRECTION/STRENGTHENING, INSTRUCTION IN APPROPRIATE BODY MECHANICS AND ACTIVITY MODIFICATIONS. DLS STARTING WITH A NEUTRAL SPINE PROGRESSING ROM TOLERATED AFTER 1-2 WEEKS. KENNEDY LE ROM, STRETCHING AND STRENGTHENING. HEP INSTRUCTION. - Subjective DX: S/P HEMILAMINECTOMY L45 03/06/2020 (2 MONTHS PO) BY DR. CARDENAS. Work/Leisure: RETIRED. Disability: NO. Present symptoms: KENNEDY LOW BACK PAIN AND RADIATES AROUND TO FRONT OF HIPS BUT NO LONGER DOWN LEGS. NO LE TINGLING BUT DOES GET SOME NUMBNESS ALONG BASE OF THE SPINE. Present since: CHRONIC WITH INCREASE NOVEMBER 13 2019. Pain Scale: WORST 7/10, LEAST 2/10. Currently: 06/27. Commenced as a result of: COULDN'T GET OUT OF BED NOVEMBER 13 2019 DUE TO SEVERE PAIN IN LOW BACK. IN THE PAST HAS BEEN ABLE TO DO STRETCHES AND WALK IT OUT BUT PHYSICALLY COULD NOT GET OUT OF BED THIS TIME AND THE PAIN WAS MORE SEVERE IN THE BACK. HAD TO LIFT LEG FOR HER AND EVENTULLY GOT ON FEET AT NOON THE NEXT DAY. ON CRUTCHES FOR ABOUT 4 DAYS. Worse: SNEEZING, PULLING, PUSHING, BENDING FORWARD, STANDING STILL, WALKING TOO FAR, WALKING ON UNEVEN SURFACES, LYING FLAT, JARRING, CARRYING GROCERY BAG, SITTING AT A 90 DEG ANGLE, SITTING WITHOUT LUMBAR SUPPORT, RIDING IN THE CAR ESPECIALLY ON ROUGH ROADS. PATIENT REPORTS ALL OF THESE THINGS STILL AGGREVATE HER SX'S BUT LESS AGGREVATION SINCE THE SURGERY. DEFINATELY STILL GETS PAIN WITH GETTING IN/OUT OF THE CAR, RISING FROM SITTING, PAIN WHEN FIRST LIES DOWN BUT GETS BETTER WITH TIME. LIFTING LEGS WHILE LYING DOWN, SUPINE PIRIFORMIS STRETCH, BRIDGING, AND BENDING. RIDING IN CAR. Better: LYING IN RECLINER RECLINED WITH LUMBAR SUPPORT. LYING DOWN. GETTING OUT AND WALKING. Disturbed sleep: YES. Previous history/Previous treatment: 2 YEARS AGO PHYSICAL THERAPY AND IT HELPED A LOT BUT DIDN'T REMOVE THE PAIN. PAIN WAS INTERMITTENT BACK THEN. PT IN DEC 2019 - WITHOUT BENEFIT. AB PIROR TO BACK SURGERY - WITHOUT BENEFIT. BACK SURGERY 03/06/2020. PREDNISONE X 12 DAYS, GABAPENTIN PRIOR TO SURGERY TOO. Coughing/sneezing/straining: POSITIVE. Gait: DISTANCE LIMITED DUE TO BACK PAIN. Difficulty initiating urinatin: NO. Accidents: NO. Unexplained weight loss: NO. Imaging: LUMBAR MRI - IMPRESSION: L4/L5: Moderate right foraminal stenosis. . L5/S1: Moderate right foraminal stenosis. PMH: ACDF JUN 10 2019. OTHER: 2 WEEKS AFTER SURGERY PATIENT REPORTS SURGEON RELEASED HER. PT ORDERED 04/23/20 OVER THE PHONE. REPORTS THE SURGERON SAID CAN HAVE AB'S AGAIN NEEDED. HOPING TO USE PT AND AB'S TO PROLONG FURTHER SURGERY. NO RESTRICTIONS CURRENTLY BUT PATIENT REPORTS SHE AVOIDS BENDING, LIFTING AND TWISTING. - Objective Sitting/Standing Posture: POOR. Lordosis: REDUCED. Lateral shift: NO. Relevant shift: N/A. Active Correction of posture: BETTER. Other Observations: INDEP GAIT WITHOUT AD BUT DECREASED CADANCE AND GUARDED. PATIENT IS UE DEPENDENT TO TRANSFER FROM STAND TO SIT. SHE IS ABLE TO TRANSFER SIT TO STAND WITHOUT UE'S THOUGH. RISING FROM SITTING IS DIFFICULT AND PAINFUL PER PATIENT REPORT. Motor deficit: KENNEDY LE STRENGTH 5/5 WITH MMT'ING EXCEPT RIGHT HIP 4-/5 AND LEFT 4/5. Sensory deficit: KENNEDY LE LIGHT TOUCH SENSATION INTACT AND SYMMETRICAL. ROM deficit: LE'S WFL'S. Reflexes: NT. Dural Signs: NEGATIVE. Lumbar mvmt loss: flex - KISHORE - PULLS IN LOW BACK. ext - MOD - NE R SG - MOD L SG - MOD. Core strength: POOR. Palpation: INCREASED MUSCLE TONE KENNEDY PARASPINALS. TENDER WITH PALPATION OF KENNEDY BUTTOCK AND HIP REGIONS BUT NOT IN LUMBAR SPINE. OTHER: PATIENT IS ABLE TO INDEP'LY TRANSFER FROM SIT TO SUPINE AND REVERSE BUT VERY SLOW AND GUARDED. SHE IS UNABLE TO GET COMFORTABLE IN SUPINE. TREATMENT: NEUROMUSCULAR REEDUCATION - RETRAINING OF MVMT AND POSTURE FOR SITTING, LYING AND STANDING ACTIVITIES. INSTRUCTED IN SUPINE ISO ABDOMINALS, GENTLE SEATED AND SUPINE KENNEDY LE DURAL STRETCHING X 5 TO 10 REPS EA LEG EVERY ONE TO TWO HOURS TOLERATED. HOME TENS USE INSTRUCTION. INSTRUCTION IN WALKING PROGRAM. INSTRUCTED IN AVOIDANCE OF PERIPHERALIZATION OF SX'S AND PATIENT COMMUNICATED A GOOD UNDERSTANDING OF ALL INSTRUCTIONS AFTER GIVEN TODAY - Goals Goal 1:: DECREASE C/O LOW BACK AND KENNEDY HIP PAIN. Goal Time Frame: 4-6 Weeks Goal 2:: IMPROVE PERSONAL CARE, LIFTING, WALKING, SITTING, STANDING, SLEEP, SOCIAL LIFE, TRAVEL AND HOMEMAKING FUNCTION. Goal Time Frame: 4-6 Weeks Goal 3:: INSTRUCT IN PROPHYLAXIS Goal Time Frame: 4-6 Weeks - Anticipated Interventions Patient/Client Instruction: Educate patient on: Condition, Plan of Care, Risk Factors, Benefits of Fitness Program For the Purpose of:: To improve self management Therapeutic Exercise to Include: Strength training, Body mechanics, Postural training, Flexibilty training, Gait and locomotor training, Neuromotor development, In an aquatic setting, Dynamic Lumbar Stabilization Comment: CONSIDER AQUATIC THERAPY AFTER APPROX ONE MONTH OF LAND THERAPY. PATIENT HAS DONE WATER EX CLASSES IN THE PAST AND LIKES THE WATER. For the Purpose of:: To decrease pain, To increase ROM, To improve muscle performance and motor function, To increase tolerance to activity/condition/position, To improve ability of physical actions for home/community/work/leisure, To improve gait and locomotor functions Thank you for the opportunity to evaluate your patient. For Medicare and Medicare HMO plans, please review the plan of care and approve it. It will need to be FAXED BACK to us at [phone] for Medicare purposes. For Medicare only, by signing this I certify the plan of care. Please let me know if there are questions or concerns regarding this plan of care. Physician Signature: Date:
--- NOTE | 2020-09-02 14:37 | HP.PT.NRP ---
CHALINO PORTILLO was seen in my office for initial evaluation on 05/03/20. The following Plan of Care was established for this patient: Initial Frequency: 2-3x /Week Initial Duration: 4-6 Weeks Patient/Client Instruction: Educate patient on: Condition, Plan of Care, Risk Factors, Benefits of Fitness Program For the Purpose of:: To improve self management Therapeutic Exercise to Include: Strength training, Body mechanics, Postural training, Flexibilty training, Gait and locomotor training, Neuromotor development, In an aquatic setting, Dynamic Lumbar Stabilization For the Purpose of:: To decrease pain, To increase ROM, To improve muscle performance and motor function, To increase tolerance to activity/condition/position, To improve ability of physical actions for home/community/work/leisure, To improve gait and locomotor functions This patient was last seen in our office 06/08/20. Pertinent comments regarding their Physical therapy will appear below: This patient has not returned to Physical Therapy and is appropriate to return to MD for further follow-up as needed. At this point I will be discontinuing this patient from physical therapy. I would be happy to see this patient again in the future if found appropriate by the physician. Thank you! Liegh Avila, PT, Cert MDT
== END 2020-06-08 19:00 | disposition home or self-care (01) ==
LOC: PT 11:30
PROVIDERS: PCP Internal Medicine; Visit Provider Internal Medicine
DX: Z98.890 Other specified postprocedural states (principal)
CPT/HCPCS: 97110; 97112; 97162; 97530

== ENCOUNTER → 2020-08-10 11:10 | Outpatient (CLI) | payer BC, SELFPAY ==
[2018-10-11 12:37] VITALS: BMI 24.2
[2020-08-10 11:46] LABS: Absolute Lymphocyte Count 2.96 X10^3/uL (0.83-4.51); Basophil# 0.08 X10^3/uL; Basophil% 1.1 % (0-1); Eosinophil# 0.66 X10^3/uL; Eosinophils% 9.1 % (0-5); Hematocrit 45.1 % (37-47); Hemoglobin 14.5 g/dL (12.0-15.0); Lymphocyte # 2.96 X10^3/ul (0.83-4.51); Lymphocyte % 40.7 % (19-41); Mean Corp Hgb Conc 32.2 g/dL (32-36); Mean Corpuscular Hgb 26.8 pg (27.0-32.0); Mean Corpuscular Volume 83.4 fL (81-99); Mean Platelet Vol. 9.3 fl (6.2-12.0); Monocyte# 0.49 X10^3/uL; Monocyte% 6.7 % (0-10); NRBC Flagged by Analyzer 0 % (0-5); Neutrophil # 3.04 X10^3/uL (2.7-7.7); Neutrophil % 41.8 % (47-70); Platelet Count 364 K/mm3 (150-450); RBC Distribution Width CV 13.6 % (11.6-14.6); RBC Distribution Width SD 41.5 fl (35.1-43.9); Red Blood Count 5.41 M/mm3 (4.2-5.4); White Blood Count 7.3 K/mm3 (4.4-11.0)
[2020-08-10 12:20] LABS: AST(SGOT) 50 U/L (15-37); Alanine Aminotransfer ALT/SGPT 73 U/L (13-56); Alkaline Phosphatase 84 U/L (45-117); Anion Gap 7 (5-15); BUN 13 mg/dL (7-18); BUN/Creat Ratio 18.9 RATIO (10-20); Calcium,Total 9.1 mg/dL (8.5-10.1); Chloride 106 mmol/L (98-107); Cholesterol 288 mg/dL (200); Creatinine, Serum 0.69 mg/dL (0.55-1.02); EST Glomerular Filtration Rate 91 mL/min (>60); Est Glom Filt Rate - Afr Amer 111 mL/min (>60); Glucose 137 mg/dL (74-106); High Density Lipoprotein 48 mg/dL; Microalbumin:Creatinine Ratio 95.1 mg/g CRE (<30 mg/g CRE); Potassium 3.5 mmol/L (3.5-5.1); Sodium Level 141 mmol/L (136-145); Triglycerides 163 mg/dL; Very Low Density Lipoprotein 33 mg/dL (5-40)
[2020-08-10 12:25] LABS: Hemoglobin A1c 6.3 % (3.8-5.6)
[2020-08-10 12:26] LABS: Vitamin D,25 Hydroxy 67.2 ng/mL
== END ==
PROVIDERS: PCP Internal Medicine; Referring Provider Internal Medicine; Visit Provider Internal Medicine
DX: E78.2 Mixed hyperlipidemia (principal); R73.01 Impaired fasting glucose; E55.9 Vitamin D deficiency, unspecified
CPT/HCPCS: 36415; 80053; 80061; 82043; 82306; 82570; 83036; 85025

== ENCOUNTER → 2021-01-21 10:15 | Outpatient (CLI) | payer BC, SELFPAY ==
[2018-10-11 12:37] VITALS: BMI 24.2
--- NOTE | 2021-01-21 10:20 | BI_ITS ---
MAMMOGRAPHY - BILATERAL SCREENING 3-D TOMOSYNTHESIS REASON FOR EXAM: Female, 65 years old. SCREENING PERTINENT HISTORY: No significant family history. TECHNIQUE: 2-D mammograms and 3-D Tomosynthesis of the breast (s) were performed. CAD was performed. COMPARISON: 11/10/2019 FINDINGS: The breast composition is composed of scattered fibroglandular density. Scattered benign calcifications are seen. 8 mm oval indistinct high density mass in the lower outer quadrant of the right breast and focal compression views recommended for further evaluation. No dominant mass left breast. No suspicious calcifications.. No architectural distortion is identified. There is no skin thickening or retraction. There has been no significant change since the prior study. BI/SCRN MAMM (CAD)W/KALIE BILAT IMPRESSION: 8 mm oval and indistinct high density mass lower outer quadrant of the right breast and focal compression views are recommended for further evaluation. ASSESSMENT CATEGORY: BIRADS Category 0: Incomplete. Need additional imaging evaluation as above. A letter regarding these results will be sent to the patient by the facility within 30 days. FOLLOW UP RECOMMENDATION: Additional imaging recommended as above. (E) Approximately 10% of breast cancers are not detected by mammography. A normal mammogram should not delay biopsy of a clinically suspicious abnormality. Electronically Signed: Rafat Fletcher MD at 18:08 EDT Tel , Service support ,
== END ==
PROVIDERS: PCP Internal Medicine; Visit Provider Internal Medicine
DX: Z12.31 Encounter for screening mammogram for malignant neoplasm of breast (principal)
CPT/HCPCS: 77063; 77067

== ENCOUNTER → 2021-01-24 08:48 | Outpatient (CLI) | payer BC, SELFPAY ==
--- NOTE | 2021-01-24 08:55 | BI_ITS ---
MAMMOGRAPHY - UNILATERAL DIAGNOSTIC: RIGHT BREAST REASON FOR EXAM: Female, 65 years old. DENSITY RT BREAST PERTINENT HISTORY: Non-contributory. TECHNIQUE: Digital examination. Mediolateral oblique (MLO) and craniocaudad (CC) views of the breast were obtained. CAD: CAD was not performed on this study. COMPARISON: 01/21/2021 FINDINGS: Breast Composition: There are scattered areas of fibroglandular density. Focal compression views do not confirm a mass in the upper outer quadrant of the right breast in the area of density seen on screening mammogram which is felt to have symptoms represent some scarring with adjacent biopsy clip. No other significant abnormalities are identified. BI/DIAG MAMM W/CAD, UNILAT IMPRESSION: Stable unilateral diagnostic mammogram. ASSESSMENT CATEGORY: BIRADS Category 2: Benign. A letter regarding these results will be sent to the patient by the facility within 30 days. FOLLOW-UP RECOMMENDATION: Yearly follow-up mammogram recommended. (A) Approximately 10% of breast cancers are not detected by mammography. A normal mammogram should not delay biopsy of a clinically suspicious abnormality. Electronically Signed: Rafat Fletcher MD at 9:43 EDT Tel , Service support ,
== END ==
PROVIDERS: PCP Internal Medicine; Referring Provider Internal Medicine; Visit Provider Internal Medicine
DX: R92.2 Inconclusive mammogram (principal)
CPT/HCPCS: 77065

== ENCOUNTER 2021-04-25 09:38 | Outpatient (CLI) | payer BC, SELFPAY ==
--- NOTE | 2021-04-25 09:45 | US_ITS ---
STUDY: ABDOMINAL ULTRASOUND - RIGHT UPPER QUADRANT REASON FOR VISIT: Female, 65 years old elevated liver enzymes TECHNIQUE: Ultrasound evaluation of the right upper quadrant was performed with real-time and static west-scale imaging. TECHNICAL QUALITY: Adequate. COMPARISON: Comparison is made with prior examination dated 11/16/2017. FINDINGS: Liver: The liver measures 17.8 cm. There is normal echogenicity of the liver. The bile ducts are within normal limits. There is hepatic color flow. The direction of portal flow is hepatopetal. There is no demonstrated mass lesion. Gallbladder: The patient is status post cholecystectomy. Common Bile Duct (C.B.D.): The common bile duct measures 7 mm. Pancreas: Normal size of the head, body and tail of the pancreas. There is normal echogenicity of the pancreas. There is no demonstrated pancreatic mass or cyst. Right Kidney: Normal size of the right kidney. The right kidney measures 11.2 cm x 5.4 cm x 5.5 cm. Normal renal cortex. The right cortex measures 1.4 cm. 2 renal cysts are seen. The larger measures 2.8 cm x 2.8 cm x 2.9 cm. There is no right hydronephrosis. US/Liver IMPRESSION: Right renal cysts. Status post cholecystectomy. Electronically Signed: Parker Rojas MD at 11:50 EST , Service support ,
[2021-04-25 11:37] LABS: Ferritin 47 ng/mL (8-252)
[2021-04-26 21:45] LABS: Anti-Mitochondrial AB <20.0 Units (0.0-20.0)
[2021-04-30 04:07] LABS: Angiotensin Convert Enzyme 22 U/L (14-82); Ceruloplasmin 27.1 mg/dL (19.0-39.0); HEPATITIS B SURFACE AG Negative (Negative); Hepatitis A IgM Antibody Negative (Negative); Hepatitis B Core AB IgM Negative (Negative)
[2021-04-30 08:50] LABS: Anti-Smooth Muscle ABS 6 Units (0-19); Copper, Serum or Plasma 110 ug/dL (80-158); Hep C Antibodies <0.1 s/co ratio (0.0-0.9)
== END 2021-04-25 23:59 | disposition short-term general hospital (02) ==
PROVIDERS: PCP Internal Medicine; Referring Provider Nurse Practitioner Adult Health; Visit Provider Nurse Practitioner Adult Health
DX: R74.8 Abnormal levels of other serum enzymes (principal)
CPT/HCPCS: 36415; 76705; 80074; 82164; 82390; 82525; 82728; 83516

== ENCOUNTER 2021-05-09 07:48 | Day surgery (SDC) | payer BC, SELFPAY ==
--- NOTE | 2021-05-09 | COLBX_PTH ---
PATIENT: CHALINO PORTILLO LOC: EN U#:[id number] AGE/SX: 65/F ROOM: RE05/09/[address]: Dr. Juan Manuel Davis DO : 1955 BED: DIS: 05/09/2021 SPEC #: [id number] RECD: 05/09/21 12:39 STATUS: PAYAM SIMONEGretchen #: [id number] CAROL: 05/09/21 00:[address]: Juan Manuel Davis DEPT: SURGICAL PATHOLOGY RECD BY: Jaylan Bergman ENTERED: 05/09/21 12:40 SP TYPE: COLON BX OTHR DR: Dr. Kenia Bella DO Tissues: A - Duodenum, NOS B - Gastric mucous membrane C - Esophageal mucous membrane D - Esophageal mucous membrane E - SPLENIC FLEXURE F - Ileum, NOS G - COLON BIOPSY Procedures: Trichrome (control) Special Stain Group II Surgery Specimen Level IV Alcian Blue/PAS (control) HEADER OPERATION: [place] [place] biopsy and polypectomy PRE-OP DIAGNOSIS: Diarrhea, elevated liver enzyme TISSUE SUBMITTED: A - Duodenum biopsy for eosinophilic gastroenteritis (EOG), B - Gastric body biopsy for EOG, C - Distal esophagus biopsy for EOG, D - Proximal esophagus biopsy for EOG, E??Splenic flexure polyp, F - Terminal ileum biopsy rule out EOG, G - Random colon biopsy rule out EOG MICROSCOPIC DIAGNOSIS A. Duodenum, biopsy: No pathologic change. B. Gastric body, biopsy: Chronic gastritis. C. Distal esophagus, biopsy: Gastroesophageal junctional mucosa with chronic inflammation. No evidence of goblet cell metaplasia. See comment. D. Proximal esophagus, biopsy: No pathologic change. E. Colonic polyp at splenic flexure, biopsy: Fragments of tubular adenoma. F. Terminal ileum, biopsy: No pathologic change. G. Colon, random biopsy: Consistent with lymphocytic colitis. See comment. AM:luz 05/10/2021 COMMENT C. Alcian blue/PAS stain with matched control supports the above diagnosis. G. Trichrome stain with matched control was used in the evaluation of this case. MICROSCOPIC DESCRIPTION Slides are reviewed. GROSS DESCRIPTION A - Received in fixative is one container labeled with the patient's name and designated duodenum biopsy for EOG. The specimen consists of multiple irregular fragments of light morton soft tissue that in aggregate measure 1.2 x 0.5 x 0.1 cm. The specimen is totally submitted in one cassette. B - Received in fixative is one container labeled with the patient's name and designated gastric body biopsy for EOG. The specimen consists of multiple irregular fragments of light morton soft tissue that in aggregate measure 1.5 x 0.3 x 0.1 cm. The specimen is totally submitted in one cassette. C - Received in fixative is one container labeled with the patient's name and designated distal esophagus biopsy for EOG. The specimen consists of multiple irregular fragments of light morton soft tissue that in aggregate measure 0.7 x 0.6 x 0.1 cm. The specimen is totally submitted in one cassette. D - Received in fixative is one container labeled with the patient's name and designated proximal esophagus biopsy for EOG. The specimen consists of multiple irregular fragments of light morton soft tissue that in aggregate measure 1 x 0.4 x 0.1 cm. The specimen is totally submitted in one cassette. E - Received in fixative is one container labeled with the patient's name and designated splenic flexure polyp. The specimen consists of multiple irregular fragments of polyp that in aggregate measure 1.2 x 1.2 x 0.3 cm. The specimen is totally submitted in one cassette. F - Received in fixative is one container labeled with the patient's name and designated terminal ileum biopsy rule out EOG. The specimen consists of multiple irregular fragments of light morton soft tissue that in aggregate measure 0.4 x 0.4 x 0.1 cm. The specimen is totally submitted in one cassette. G - Received in fixative is one container labeled with the patient's name and designated random colon biopsy rule out EOG. The specimen consists of multiple irregular fragments of light morotn soft tissue that in aggregate measure 2 x 0.5 x 0.1 cm. The specimen is totally submitted in one cassette. / SJ:rg 05/09/2021 TC:3 CPT: 14665 x7, 62105 x2
--- NOTE | 2021-05-09 08:23 | HP.PCM_ITS ---
History and Physical Date of Admission: 05/09/21 CHALINO PORTILLO, is a 65 F who presents to the office today for [employer] seen previously who told her she has a ?leaky gut?. Has attempted food elimination. Has attempted budesonide 3mg. Additional history of depression, gastric reflux, HTN, hyperlipidemia, osteoporosis/osteopenia, DM II, history of alcohol abuse, macrocytosis. Reports chronic diarrhea with urgency and some incontinence for the last year with worsening in August/September. Pain located LLQ and extending across her lower abdo men with gurgling and gas. Colonoscopy performed 11/2020 with finding of lymphocytic colitis. Budesonide 9mg has been helpful thus far, though she continues to have 5 BM a day with watery diarrhea that has been worsening in the last few weeks. Diet alteration includes wheat, egg and dairy elimination. Food sensitivity blood testing performed and eliminated those foods indicated. [employer] Associate has provided some medications with gut feeling better. ROS Const Constitutional: Positive for fatigue Gastro GI: Positive for abdominal pain, bloating, diarrhea and heartburn Musc Musculoskeletal: Positive for stiffness and restless legs Neuro Neurology: Positive for restless legs Psych Psychiatric: Positive for anxiety Endo Endocrine: Positive for fatigue Exam Const General: cooperative and comfortable Nutritional Appearance: average body habitus and well nourished HENMT Head: normal to inspection Ears: hearing grossly normal bilaterally Nose: external nose normal Face and sinus: normal facial exam Mouth: oral mucosae normal Throat: posterior oropharynx normal Eyes General: appearance normal, both eyes and all related structures Neck Neck: normal visual inspection Chest Chest palpation & inspection: normal inspection of the chest and normal palpation of entire chest wall Resp Effort & Inspection: normal respiratory effort Auscultation: Bilateral: Clear to Auscultation Cardio Palpation: normal PMI Rate: regular rate Rhythm: regular rhythm GI Inspection: normal to inspection Auscultation: normal bowel sounds Percussion: normal to percussion Palpation: no hepatosplenomegaly Skin General: no rashes or lesions noted Neuro General: patient alert Extrem General: normal to inspection Psych Affect: normal affect Quality Reporting Tobacco Screening ([facility] 138) Smoking Status: Former smoker Assessment and Plan Assessment and Plan (1) Diarrhea: Status: Acute Orders: Orders: Colonoscopy Today Dr. Juan Manuel Davis, DO EGD Today Dr. Juan Manuel Davis, DO Comprehensive Metabolic Profil Today Dr. Juan Manuel Davis, DO CRP Today Dr. Juan Manuel Davis, DO Thyroid Stim Hormone (TSH) Today Dr. Juan Manuel Davis, DO CBC W/Diff, Automated Today Dr. Juan Manuel Davis, DO Erythrocyte Sed Rate Today Dr. Juan Manuel Davis, DO Stool Occult Blood iFOB Today Dr. Juan Manuel Davis, DO ANCA Today Dr. Juan Manuel Davis, DO Celiac Disease Profile Today Dr. Juan Manuel Davis, DO Miscellaneous Lab Procedure Today Dr. Juan Manuel Davis, DO Plan - Dr. Juan Manuel Davis, DO: Differential diagnosis for diarrhea would be refractory lymphocytic colitis, inflammatory bowel disease, infectious colitis, celiac disease, autoimmune enteritis. She will undergo an EGD and colonoscopy for evaluation of her upper lower GI tract. I will also put on Lomotil 2 tabs 1 or 2 tabs at night. She will get biochemical test thing in losing ESR, CRP, thyroid studies, ANCA, tissue transglutaminase, ISIDRO. (2) Elevated liver enzymes: Status: Acute Orders: Orders: Liver Today Suzy Clarke [employer], [employer]AILER-C Plan - Dr. Juan Manuel Davis, DO: She did have mildly elevated liver enzymes. The ratio is an increase ALT to AST ratio. The differential diagnosis for this would be ischemia, medicines, autoimmune. We will get blood work including an anti-smooth muscle antibody, antimitochondrial antibody, ISIDRO, copper level, ferritin. We will also get viral studies. And she will possibly need an elastography after she gets an ultrasound. Plan Details Other Medications: New: budesonide ER 9 mg (3 x 3 mg) PO DAILY 90 days [address] Juan Manuel Davis, DO bisacodyl take as directed for bowel prep 5 mg PO ONCE [address] Juan Manuel Davis, DO polyethylene glycol 3350 (Miralax) take as directed for bowel prep 17 grams PO DAILY [address] Juan Manuel Davis, DO diphenoxylate-atropine 2.5-0.025 mg (Lomotil) 2 tabs PO BID PRN [address] Juan Manuel Davis DO I have re-examined the patient. There are no clinical changes since date of exam.
[2021-05-09 08:26] VITALS: BP 139/85; PULSE 66; RESP 16; TEMP 36.1; O2SAT 97; BMI 29.0
[2021-05-09] MEDS: Lactated Ringers 1,000 ML 15 ML IV (08:39)
--- NOTE | 2021-05-09 09:19 | OP.EGD_ITS ---
Patient Name: Cat Wagoner Procedure Date: 05/09/2021 8:55 AM Date of : 1955 Age: 65 Procedure: Upper GI endoscopy Indications: Failure to respond to medical treatment Providers: Juan Manuel Davis DO Referring MD: Juan Manuel Davis DO Medicines: See the Anesthesia note for documentation of the administered medications Patient Profile: This is a 65 year old female. Refer to note in patient chart for documentation of history and physical. Complications: No immediate complications. Procedure: Pre-Anesthesia Assessment: - Prior to the procedure, a History and Physical was performed, and patient medications and allergies were reviewed. The risks and benefits of the procedure and the sedation options and risks were discussed with the patient. All questions were answered and informed consent was obtained. Patient identification and proposed procedure were verified by the physician in the pre-procedure area. Mental Status Examination: alert and oriented. Airway Examination: normal oropharyngeal airway and neck mobility. Respiratory Examination: clear to auscultation. CV Examination: normal. Prophylactic Antibiotics: The patient does not require prophylactic antibiotics. Prior Anticoagulants: The patient has taken no previous anticoagulant or antiplatelet agents. ASA Grade Assessment: II - A patient with mild systemic disease. After reviewing the risks and benefits, the patient was deemed in satisfactory condition to undergo the procedure. The anesthesia plan was to use moderate sedation / analgesia (conscious sedation). Immediately prior to administration of medications, the patient was re-assessed for adequacy to receive sedatives. The heart rate, respiratory rate, oxygen saturations, blood pressure, adequacy of pulmonary ventilation, and response to care were monitored throughout the procedure. The physical status of the patient was re-assessed after the procedure. After obtaining informed consent, the endoscope was passed under direct vision. Throughout the procedure, the patient's blood pressure, pulse, and oxygen saturations were monitored continuously. The Colonoscope was introduced through the mouth, and advanced to the second part of duodenum. The upper GI endoscopy was accomplished without difficulty. The patient tolerated the procedure well. Moderate Sedation: Moderate (conscious) sedation was administered by the endoscopy nurse and supervised by the endoscopist. The following parameters were monitored: oxygen saturation, heart rate, blood pressure, and response to care. Total physician intraservice time was 15 minutes. Scope In: 9:05:25 AM Scope Out: 9:15:13 AM Total Procedure Duration Time 0 hours 9 minutes 48 seconds Findings: Mucosal changes including ringed esophagus, longitudinal furrows and congestion (edema) were found in the upper third of the esophagus, in the middle third of the esophagus and in the lower third of the esophagus. Esophageal findings were graded using the Eosinophilic Esophagitis Endoscopic Reference Score (EoE-EREFS) as: Edema Grade 0 Normal (distinct vascular markings), Rings Grade 0 None (no ridges or rings seen), Exudates Grade 1 Mild (scattered white lesions involving less than 10 percent of the esophageal surface area), Furrows Grade 1 Present (vertical lines with or without visible depth) and Stricture none (no stricture found). Biopsies were taken with a cold forceps for histology. Biopsies were obtained from the proximal and distal esophagus with cold forceps for histology of suspected eosinophilic esophagitis. Verification of patient identification for the specimen was done. Estimated blood loss was minimal. LA Grade A (one or more mucosal breaks less than 5 mm, not extending between tops of 2 mucosal folds) esophagitis with no bleeding was found 34 to 35 cm from the incisors. Biopsies were taken with a cold forceps for histology. Verification of patient identification for the specimen was done. Estimated blood loss was minimal. Diffuse mild inflammation characterized by congestion (edema) and erythema was found in the entire examined stomach. Biopsies were taken with a cold forceps for histology. Verification of patient identification for the specimen was done. Estimated blood loss was minimal. Diffuse mild inflammation characterized by congestion (edema) and erosions was found in the duodenal bulb, in the first portion of the duodenum and in the second portion of the duodenum. Biopsies were taken with a cold forceps for histology. Verification of patient identification for the specimen was done. Estimated blood loss was minimal. Impression: - Esophageal mucosal changes suspicious for eosinophilic esophagitis. Biopsied. - LA Grade A reflux esophagitis. Rule out Merida's esophagus. Biopsied. - Gastritis. Biopsied. - Duodenitis. Biopsied. Recommendation: - Discharge patient to home. - Resume previous diet. - Continue present medications. - Await pathology results. - Return to my office. Procedure Code(s): --- Professional --- 75635, Esophagogastroduodenoscopy, flexible, transoral; with biopsy, single or multiple 47762, 59, Moderate sedation services provided by the same physician or other qualified health manager managed care performing the diagnostic or therapeutic service that the sedation supports, requiring the presence of an independent trained observer to assist in the monitoring of the patient's level of consciousness and physiological status; initial 15 minutes of intraservice time, patient age 5 years or older CPT copyright 2017 [employer]. All rights reserved. The codes documented in this report are preliminary and upon inpatient coder review may be revised to meet current compliance requirements. Juan Manuel Davis DO 05/09/2021 9:18:50 AM This report has been signed electronically. Number of Addenda: 1 Note Initiated On: 05/09/2021 8:55 AM Addendum Number: 1 Addendum Date: 12/26/2021 6:20:41 AM MAC was used instead of moderate sedation for the patient. Juan Manuel Davis DO 12/26/2021 6:20:45 AM This report has been signed electronically.
--- NOTE | 2021-05-09 09:19 | OP.CCLET_ITS ---
12/26/2021 Kenia Bella Re : Upper GI endoscopy procedure for Cat Desir Shayne This procedure was performed on April. My impressions and recommendations are as follows: Impressions : - Esophageal mucosal changes suspicious for eosinophilic esophagitis. Biopsied. - LA Grade A reflux esophagitis. Rule out Merida's esophagus. Biopsied. - Gastritis. Biopsied. - Duodenitis. Biopsied. Recommendations : - Discharge patient to home. - Resume previous diet. - Continue present medications. - Await pathology results. - Return to my office. My findings are described in the full procedure note, which is enclosed. If I can be of further assistance, please feel free to contact me at . Sincerely, Juan Manuel Davis, 05/09/2021 9:18:50 AM This report has been signed electronically.
[2021-05-09 09:50] VITALS: BP 116/72; BP 139/85; PULSE 64; RESP 16; TEMP 36.9; O2SAT 97
--- NOTE | 2021-05-09 09:50 | OP.COLON_ITS ---
Patient Name: Cat Wagoner Procedure Date: 05/09/2021 9:15 AM Date of : 1955 Age: 65 Procedure: Colonoscopy Indications: Clinically significant diarrhea of unexplained origin Providers: Juan Manuel Davis DO Referring MD: Juan Manuel Davis DO Medicines: See the Anesthesia note for documentation of the administered medications Patient Profile: This is a 65 year old female. Refer to note in patient chart for documentation of history and physical. Last Colonoscopy: 3 years ago. Last Colonoscopy: date unknown. Unable to locate last colonoscopy report. Complications: No immediate complications. Procedure: Pre-Anesthesia Assessment: - Prior to the procedure, a History and Physical was performed, and patient medications and allergies were reviewed. The risks and benefits of the procedure and the sedation options and risks were discussed with the patient. All questions were answered and informed consent was obtained. Patient identification and proposed procedure were verified by the physician in the pre-procedure area. Mental Status Examination: alert and oriented. Airway Examination: normal oropharyngeal airway and neck mobility. Respiratory Examination: clear to auscultation. CV Examination: normal. Prophylactic Antibiotics: The patient does not require prophylactic antibiotics. Prior Anticoagulants: The patient has taken no previous anticoagulant or antiplatelet agents. ASA Grade Assessment: II - A patient with mild systemic disease. After reviewing the risks and benefits, the patient was deemed in satisfactory condition to undergo the procedure. The anesthesia plan was to use moderate sedation / analgesia (conscious sedation). Immediately prior to administration of medications, the patient was re-assessed for adequacy to receive sedatives. The heart rate, respiratory rate, oxygen saturations, blood pressure, adequacy of pulmonary ventilation, and response to care were monitored throughout the procedure. The physical status of the patient was re-assessed after the procedure. After I obtained informed consent, the scope was passed under direct vision. Throughout the procedure, the patient's blood pressure, pulse, and oxygen saturations were monitored continuously. The Colonoscope was introduced through the anus and advanced to the terminal ileum. The colonoscopy was performed without difficulty. The patient tolerated the procedure well. The quality of the bowel preparation was good. Moderate Sedation: Moderate (conscious) sedation was administered by the endoscopy nurse and supervised by the endoscopist. The patient's oxygen saturation, heart rate, blood pressure and response to care were monitored. Total physician intraservice time was 15 minutes. Scope In: 9:21:01 AM Scope Withdrawal Time 0 hours 12 minutes 8 seconds Scope Out: 9:45:24 AM Total Procedure Duration Time 0 hours 24 minutes 23 seconds Findings: The perianal and digital rectal examinations were normal. An area of mildly congested mucosa was found in the rectum, in the recto-sigmoid colon and in the sigmoid colon. Biopsies were taken with a cold forceps for histology. Verification of patient identification for the specimen was done. Estimated blood loss was minimal. A 9 mm polyp was found in the transverse colon. The polyp was sessile. The polyp was removed with a hot snare. Resection and retrieval were complete. Verification of patient identification for the specimen was done. Estimated blood loss was minimal. The terminal ileum appeared normal. Biopsies were taken with a cold forceps for histology. Verification of patient identification for the specimen was done. Estimated blood loss was minimal. Impression: - Congested mucosa in the rectum, in the recto-sigmoid colon and in the sigmoid colon. Biopsied. - One 9 mm polyp in the transverse colon, removed with a hot snare. Resected and retrieved. - The examined portion of the ileum was normal. Biopsied. Recommendation: - Discharge patient to home. - Resume previous diet. - Continue present medications. - Await pathology results. - Return to my office. - Repeat colonoscopy in 5 years for surveillance based on pathology results. Procedure Code(s): --- Professional --- 65705, Colonoscopy, flexible; with removal of tumor(s), polyp(s), or other lesion(s) by snare technique 25175, 59, Colonoscopy, flexible; with biopsy, single or multiple 17612, 59, Moderate sedation services provided by the same physician or other qualified health career professional performing the diagnostic or therapeutic service that the sedation supports, requiring the presence of an independent trained observer to assist in the monitoring of the patient's level of consciousness and physiological status; initial 15 minutes of intraservice time, patient age 5 years or older CPT copyright 2017 [employer]. All rights reserved. The codes documented in this report are preliminary and upon certified professional coder review may be revised to meet current compliance requirements. Juan Manuel Davis DO 05/09/2021 9:50:19 AM This report has been signed electronically. Number of Addenda: 1 Note Initiated On: 05/09/2021 9:15 AM Addendum Number: 1 Addendum Date: 12/26/2021 6:20:53 AM MAC was used instead of moderate sedation for the patient. Juan Manuel Davis, 12/26/2021 6:20:59 AM This report has been signed electronically.
--- NOTE | 2021-05-09 09:51 | OP.CCLET_ITS ---
12/26/2021 Kenia Bella Re : Colonoscopy procedure for Cat Wagoner Dear Shayne This procedure was performed on April. My impressions and recommendations are as follows: Impressions : - Congested mucosa in the rectum, in the recto-sigmoid colon and in the sigmoid colon. Biopsied. - One 9 mm polyp in the transverse colon, removed with a hot snare. Resected and retrieved. - The examined portion of the ileum was normal. Biopsied. Recommendations : - Discharge patient to home. - Resume previous diet. - Continue present medications. - Await pathology results. - Return to my office. - Repeat colonoscopy in 5 years for surveillance based on pathology results. My findings are described in the full procedure note, which is enclosed. If I can be of further assistance, please feel free to contact me at . Sincerely, Juan Mnauel Davis, 05/09/2021 9:50:19 AM This report has been signed electronically.
[2021-05-09 09:55] VITALS: BP 129/76; BP 139/85; PULSE 66; RESP 16; O2SAT 97
[2021-05-09 10:00] VITALS: BP 125/72; BP 139/85; PULSE 60; RESP 16; O2SAT 97
[2021-05-09 10:05] VITALS: BP 128/73; BP 139/85; PULSE 54; RESP 16; TEMP 36.9; O2SAT 97
[2021-05-09 10:27] VITALS: BP 139/85
== END 2021-05-09 23:59 | disposition home or self-care (01) ==
LOC: EN 07:54 → AC 07:56
PROVIDERS: PCP Internal Medicine; Referring Provider Internal Medicine Gastroenterology; Visit Provider Internal Medicine Gastroenterology
PROC: 0DJD8ZZ Inspection of Lower Intestinal Tract, Via Natural or Artificial Opening Endoscopic (ICD-10-PCS; CPT 45378; principal; 2021-05-09 08:55)
DX: K21.00 Gastro-esophageal reflux disease with esophagitis, without bleeding (principal); E11.9 Type 2 diabetes mellitus without complications; D12.3 Benign neoplasm of transverse colon; K29.50 Unspecified chronic gastritis without bleeding; R19.7 Diarrhea, unspecified; K29.80 Duodenitis without bleeding; I10 Essential (primary) hypertension; E78.5 Hyperlipidemia, unspecified; D75.89 Other specified diseases of blood and blood-forming organs; M81.0 Age-related osteoporosis without current pathological fracture; M19.90 Unspecified osteoarthritis, unspecified site; R94.5 Abnormal results of liver function studies; Z20.822 Contact with and (suspected) exposure to COVID-19; Z79.899 Other long term (current) drug therapy; Z87.891 Personal history of nicotine dependence
CPT/HCPCS: 45385; 45380; 43239; 87426; 87493; 88305; 88313; C9803; J7120; J2405

== ENCOUNTER 2021-06-03 10:05 | Outpatient (CLI) | payer BC, SELFPAY ==
[2021-06-03 10:24] LABS: Erythrocyte Sedimentation Rate 9 mm/hr (0-30)
[2021-06-03 10:25] LABS: Absolute Lymphocyte Count 3.52 X10^3/uL (0.83-4.51); Absolute Neutrophil Count 4.1 X10^3/uL (2.0-7.7); Basophil# 0.08 X10^3/uL; Basophil% 0.9 % (0-1); Eosinophil# 0.14 X10^3/uL; Eosinophils% 1.7 % (0-5); Hematocrit 41.8 % (37-47); Hemoglobin 13.9 g/dL (12.0-15.0); Lymphocyte # 3.52 X10^3/ul (0.83-4.51); Lymphocyte % 41.6 % (19-41); Mean Corp Hgb Conc 33.3 g/dL (32-36); Mean Corpuscular Hgb 28.8 pg (27.0-32.0); Mean Corpuscular Volume 86.7 fL (81-99); Mean Platelet Vol. 9.3 fl (6.2-12.0); Monocyte# 0.58 X10^3/uL; Monocyte% 6.9 % (0-10); NRBC Flagged by Analyzer 0 % (0-5); Neutrophil # 4.06 X10^3/uL (2.7-7.7); Platelet Count 297 K/mm3 (150-450); RBC Distribution Width CV 14.4 % (11.6-14.6); RBC Distribution Width SD 46.4 fl (35.1-43.9); Red Blood Count 4.82 M/mm3 (4.2-5.4); White Blood Count 8.5 K/mm3 (4.4-11.0)
[2021-06-03 11:07] LABS: ALB/GLOB Ratio 0.9 RATIO (0.9-2.4); AST(SGOT) 19 U/L (15-37); Alanine Aminotransfer ALT/SGPT 24 U/L (13-56); Albumin, Serum 3.5 g/dL (3.2-5.0); Alkaline Phosphatase 59 U/L (45-117); Anion Gap 4 (5-15); BUN 14 mg/dL (7-18); BUN/Creat Ratio 18.3 RATIO (10-20); CRP < 2.90 mg/L (0.0-3.0); Calcium,Total 8.7 mg/dL (8.5-10.1); Chloride 106 mmol/L (98-107); Creatinine, Serum 0.77 mg/dL (0.55-1.02); EST Glomerular Filtration Rate 81 mL/min (>60); Est Glom Filt Rate - Afr Amer 97 mL/min (>60); Globulin 3.9 g/dL (2.2-4.2); Glucose 115 mg/dL (74-106); Potassium 3.4 mmol/L (3.5-5.1); Protein, Total 7.4 g/dL (6.4-8.2); Sodium Level 141 mmol/L (136-145); Thyroid Stim Hormone (TSH) 7.56 uIU/mL (0.358-3.74)
[2021-06-04 12:08] LABS: Anti-Centromere B Ab <0.2 AI (0.0-0.9); Anti-Chromatin <0.2 AI (0.0-0.9); Anti-Jo <0.2 AI (0.0-0.9); Anti-Scleroderma-70 AB <0.2 AI (0.0-0.9); RNP Ab <0.2 AI (0.0-0.9); SJOGREN'S Anti-SS-A test < 0.2 AI (0.0-0.9); SJOGREN'S Anti-SS-B test < 0.2 AI (0.0-0.9); Smith Ab 0.2 AI (0.0-0.9)
[2021-06-04 17:02] LABS: Anti-dsDNA Ab <1 IU/mL (0-9)
[2021-06-05 19:07] LABS: Cytoplasmic Ab (C-ANCA) >1:640 titer (Neg:<1:20); Endomysial Antibody IgA Negative (Negative); Immunoglobulin A 192 mg/dL (87-352)
[2021-06-05 22:07] LABS: Perinuclear Ab (P-ANCA) <1:20 titer (Neg:<1:20); t-Transglutaminase IgA <2 U/mL (0-3)
== END 2021-06-03 23:59 | disposition home or self-care (01) ==
LOC: LAB 10:06
PROVIDERS: PCP Internal Medicine; Referring Provider Nurse Practitioner Adult Health; Visit Provider Nurse Practitioner Adult Health
DX: R19.7 Diarrhea, unspecified (principal); R74.8 Abnormal levels of other serum enzymes
CPT/HCPCS: 80053; 82784; 83516; 84443; 85025; 85652; 86140; 86225; 86235; 86255; 86256

== ENCOUNTER → 2021-11-07 | Outpatient (CLI) | payer BC, SELFPAY ==
--- NOTE | 2021-11-07 13:00 | BD_ITS ---
STUDY: DUAL ENERGY X-RAY ABSORPTIOMETRY / DXA REASON FOR EXAM: Female, 65 years old. M85.80. Patient is postmenopausal. TECHNIQUE: Bone Mineral Density (BMD) measurements of lumbar spine and bilateral hips were obtained. COMPARISON: Comparison is made with prior study dated 11/10/2019. FINDINGS: Lumbar Spine (L1-L4): g/cm2 (0.800) / T-score (-2.2) / Z-score (-0.5) Findings are suggestive of osteopenia with a high fracture risk. Left Femur Total: g/cm2 (0.804) / T-score (-1.1) / Z-score (0.1) Left Femoral Neck: g/cm2 (0.681) / T-score (-1.5) / Z-score (0.0) Right Femur Total: g/cm2 (0.813) / T-score (-1.1) / Z-score (0.2) Right Femoral Neck: g/cm2 (0.630) / T-score (-2.0) / Z-score (-0.5) The T-Scores on the most recent prior examination were: Lumbar Spine (L1-L4): There has been worsening of bone density since the previous examination. Left Femur Total: which represents an improvement of 3.3%. Right Femur Total: which represents an improvement of 1.3%. BD/Dexa Bone Density Study IMPRESSION: The patient is considered osteopenic as outlined below according to World [place] Organization (WHO) criteria with a high fracture risk. There has been improvement of bone density since the previous examination. Reference Information: The T-score is the number of standard deviations above or below the standard which is normal for young adults at their peak bone mineral density. The World Health Organization (WHO) interprets the T-scores as follows: Above -1 Normal bone density Between -1 and -2.5 Osteopenia Equal to / or below -2.5 Osteoporosis As a practical clinical guideline, osteopenia may be graded as follows: Mild -1 through -1.5 Moderate -1.6 through -2.0 Severe -2.1 through -2.4 The Z-score is the number of standard deviations above or below age-matched controls. A Z-score of less than -1.5 would be considered abnormal. References: 1. NIH Osteoporosis and Related Bone Diseases www osteo.org 2. International Society for Clinical Densitometry www iscd.org 3. National Osteoporosis Foundation www nof.org Electronically Signed: Parker Rojas MD at 15:12 EDT ,
== END | disposition home or self-care (01) ==
LOC: OPBD 12:53
PROVIDERS: PCP Internal Medicine; Visit Provider Internal Medicine
DX: M85.80 Other specified disorders of bone density and structure, unspecified site (principal); Z78.0 Asymptomatic menopausal state
CPT/HCPCS: 77080

== ENCOUNTER → 2022-01-31 | Outpatient (CLI) | payer SELFPAY, MEDICARE, OTHER ==
[2022-01-31 12:38] VITALS: BP 152/91; PULSE 66; RESP 14; TEMP 36.4; O2SAT 95; BMI 29.0
--- NOTE | 2022-01-31 12:58 | CT_ITS ---
STUDY: CARDIAC CALCIUM SCORING - CT CHEST REASON FOR EXAM: Female, 66 years old. HIGH CHOLESTROL OVERREAD ONLY RADIATION DOSAGE (If Supplied By Facility): CTDIvol = ( 12.19 ) mGy, DLP = ( 316.93 ) mGycm TECHNIQUE: Axial non-enhanced images were acquired through the heart for the sole purpose of measuring coronary artery calcium. Individualized dose optimization techniques were used for this CT. COMPARISON: None. FINDINGS: CT chest over read The imaged portion of the lungs is clear. The imaged portion of the mediastinum and chest wall is normal. There is atherosclerotic vessel calcifications aortic arch and of the LAD coronary artery. There is a probable simple cyst in the upper pole the right kidney 3 cm in diameter image portion. Multiple small calculi are suggested in the upper to mid pole of the left kidney. CT/Limited Chest CT Cardiac Only IMPRESSION: Atherosclerotic vascular calcification aortic arch and LAD. Probable simple cyst upper pole right kidney image portion 3 cm. Multiple small calculi left kidney.. Please go to: [email or web address] , for a description of the calculator. Electronically Signed: Ramez Varghese MD, DAVIDA at 14:32 EDT ,
--- NOTE | 2022-02-09 16:30 | CA.SCORE ---
Calcium Scoring Date of Study:: 01/31/22 Coronary Calcium Scoring: High-resolution Computed Tomographic imaging of the chest was performed on [01/31/22 ], with particular attention paid to the coronary arteries. Images from the examination were analyzed for the presence and extent of coronary artery calcification , using coronary calcium quantification software. The patient tolerated the procedure well and there were no complications. The results of the coronary calcification analysis are provided below. Findings Coronary Artery Left Main (LM): 0 Left Anterior Descending (LAD): 0 Left Circumflex (LCX): 1 Right Coronary Artery (RCA): 32 Total Agatston Score: 33 Percentile Rankin-75% Calcium Scoring Interpretation: 0 No identifiable atherosclerotic plaque. Very low cardiovascular disease risk. <5% chance of presence coronary artery disease A Negative Examination 1-10 Minimal Plaque burden. Significant coronary artery disease very unlikely. 11-100 Mild plaque burden. Likely mild or minimal coronary atherosclerosis. 101-400 Moderate plaque burden Moderate non-obstructive coronary artery disease highly likely. Over 400 Extensive plaque burden. High likelihood of at least one significant coronary stenosis (>50% diameter) Calcium Score: 11 - 100 Likely mild or minimal coronary stenosis
== END | disposition home or self-care (01) ==
LOC: CT 12:32
PROVIDERS: PCP Internal Medicine; Referring Provider Internal Medicine; Visit Provider Internal Medicine
DX: E78.5 Hyperlipidemia, unspecified (principal)
CPT/HCPCS: 75571; 76380

== ENCOUNTER 2022-03-22 12:30 | Inpatient (IN) | payer MEDICARE, OTHER, SELFPAY ==
[2022-03-22 13:03] VITALS: BP 147/93; PULSE 80; RESP 16; TEMP 36.4; O2SAT 93; BMI 25.7
[2022-03-22] MEDS: Magnesium Hydroxide 30 ML UDC PO (15:29)
[2022-03-22 16:50] LABS: Bedside Glucose 105 mg/dL (74-106)
[2022-03-22] MEDS: Atorvastatin Calcium 40 MG Tablet PO (21:22)
[2022-03-22] MEDS: Senna/Docusate Sodium 1 Tablet 2 TABLET PO (21:22)
[2022-03-22] MEDS: Loratadine 10 MG Tablet PO (21:23)
[2022-03-22 22:00] VITALS: BP 166/93; PULSE 75; PULSE 76; RESP 16; TEMP 36.4; O2SAT 96
[2022-03-23] MEDS: Enoxaparin 40 MG/0.4 ML Syringe SC (06:36)
[2022-03-23 06:42] VITALS: O2SAT 96
[2022-03-23] MEDS: Acetaminophen 325 MG Tablet 650 MG PO (06:42)
--- NOTE | 2022-03-23 06:42 | CPS ---
started by nursing
[2022-03-23] MEDS: SEMAGLUTIDE 14 MG TABLET PO (06:57)
[2022-03-23 07:51] LABS: Bedside Glucose 115 mg/dL (74-106)
[2022-03-23 07:53] LABS: Hematocrit 46.9 % (37-47); Hemoglobin 15.8 g/dL (12.0-15.0); Mean Corp Hgb Conc 33.7 g/dL (32-36); Mean Corpuscular Hgb 27.2 pg (27.0-32.0); Mean Corpuscular Volume 80.9 fL (81-99); Mean Platelet Vol. 9.3 fl (6.2-12.0); Platelet Count 314 K/mm3 (150-450); RBC Distribution Width CV 12.4 % (11.6-14.6); RBC Distribution Width SD 36.3 fl (35.1-43.9); White Blood Count 6.9 K/mm3 (4.4-11.0)
[2022-03-23 08:03] VITALS: O2SAT 96
[2022-03-23 08:18] LABS: AST(SGOT) 29 U/L (15-37); Alanine Aminotransfer ALT/SGPT 39 U/L (13-56); Albumin, Serum 3.6 g/dL (3.2-5.0); Alkaline Phosphatase 62 U/L (45-117); Anion Gap 9 (5-15); BUN 22 mg/dL (7-18); BUN/Creat Ratio 34.3 RATIO (10-20); Calcium,Total 8.7 mg/dL (8.5-10.1); Chloride 102 mmol/L (98-107); Creatinine, Serum 0.64 mg/dL (0.55-1.02); EST Glomerular Filtration Rate 99 mL/min (>60); Est Glom Filt Rate - Afr Amer 119 mL/min (>60); Estimated Creatinine Clearance 82.04 ml/min; Globulin 3.6 g/dL (2.2-4.2); Glucose 106 mg/dL (74-106); Magnesium 2.5 mg/dL (1.6-2.6); Potassium 2.8 mmol/L (3.5-5.1); Protein, Total 7.2 g/dL (6.4-8.2); Sodium Level 136 mmol/L (136-145)
[2022-03-23 08:29] VITALS: BP 138/92; PULSE 86; RESP 16; TEMP 36.6; O2SAT 95
[2022-03-23] MEDS: Losartan Potassium 25 MG Tablet PO (08:45)
[2022-03-23] MEDS: Senna/Docusate Sodium 1 Tablet 2 TABLET PO ×2 (08:45→21:27)
[2022-03-23] MEDS: amLODIPine 5 MG Tablet PO (08:45)
[2022-03-23] MEDS: Clopidogrel Bisulfate 75 MG Tablet PO (08:45)
[2022-03-23] MEDS: Cholecalciferol (Vit D3) 125 MCG CAPSULE (5,000 UNITS) PO (08:45)
[2022-03-23] MEDS: Aspirin 81 MG TAB.CHEW PO (08:46)
[2022-03-23] MEDS: Pantoprazole Sodium 40 MG Tablet PO (08:46)
--- NOTE | 2022-03-23 11:11 | EX.PCM.HP.RE ---
HPI - General General Date of Admission: 03/22/22 Date of Service: 03/23/22 Chief Complaint: Debility due to CVA HPI Narrative CAT PORTILLO, is a 66 YO F with PMH of HTN, HLD, glucose intolerance, allergic rhinitis?, remote tobacco dependence, GERD, ADD, nephrolithiasis and RLS who presented to the ED at [facility] on 03/20/22 with Left facial droop. Left side weakness and slurred speech. She felt fine when she went to bed at 10PM and awoke at 0430 with these sx. A NC CT brain was unremarkable. CTA of the head and neck showed no LVO. Teleneurology recommended ASA and Plavix for 21 days and a stroke work-up. Her symptoms had mostly resolved except for left had weakness. She was admitted to telemetry for observation. MRI of the brain was negative for stroke. The following morning she had obvious left facial droop and slurred speech. MRI of the brain was repeated and showed an acute R side lacunar infarct and small vessel disease. ECHO was unremarkable. LDL was 139 and the HDL was low at 39. She was seen by PT/OT and acute rehab was recommended at [place]. Cat was transferred to the acute inpt rehab unit at [facility] on 03/22/22 for 3 hours of therapy daily to restore function/independence at or near her level prior to the stroke. Afebrile BP is high and has ranged from 138/92 to 166/93 since admission to rehab. HR is WNL. Maintaining appropriate oxygen saturation on RA. All lab from today was personally reviewed. HGB is high at 15.8. MCV is low at 80.9. Potassium is low at 2.8. BUN is 22 and the Creat is 0.64. she has had sinus problems since she was in her early 20's. Congestion, sometimes nosebleeds, sometimes sinus pain. Told by an ENT doctor many years ago that she had thickened sinus membranes. Has been on various steroid nasal sprays in the past with some success. She quit smoking 30-35 years ago. She has a sister with RA. 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 He told her she should follow up with a gasoline truck operator for the + c ANCA. She tells me that she has had subclinical hypothyroidism but, she has not been on medication and the last time she had thyroid studies they were normal. Tells me her most recent HGBA1C is 5.4. [facility] Medical History (Updated 03/23/22 @ 14:[address] Linda Ortiz DO) Alcohol use Anxiety Arthritis Depression Diabetes Diarrhea Elevated liver enzymes Elevated TSH Former smoker Heartburn History of edema History of stress test HTN (hypertension) Hx of diarrhea hypercholesterolemia Hypokalemia Injury of head and neck Kidney stones Renal calculus, left Restless legs Right ureteral calculus Stroke/cerebrovascular accident Tubular adenoma of colon Wears glasses Home Medications amlodipine 5 mg tablet (Norvasc) 5 mg PO QDAY bp 11/19/17 [History Last Taken 05/09/21] cholecalciferol (vitamin D3) 25 mcg (1,000 unit) capsule 5,000 unit PO QDAY supp 11/19/17 [History Last Taken Unknown] lutein 10 mg tablet 10 mg PO DAILY eye 05/17/18 [History Last Taken Unknown] cetirizine 10 mg capsule (Zyrtec) 10 mg PO QHS allergy 05/08/21 [History Last Taken Unknown] losartan 25 mg tablet 25 mg PO DAILY bp 05/08/21 [History Last Taken 05/09/21] semaglutide 7 mg tablet (Rybelsus) 14 mg PO DAILY dm 10/10/21 [History Last Taken Unknown] aspirin 81 mg chewable tablet 81 mg PO DAILY heart 03/22/22 [History Last Taken Unknown] atorvastatin 40 mg tablet (Lipitor) 40 mg PO QHS cholesterol 03/22/22 [History Last Taken Unknown] pantoprazole 40 mg tablet,delayed release 40 mg PO DAILY gerd 03/22/22 [History Last Taken Unknown] Allergy/AdvReac Type Severity Reaction Status Date / Time biotin Allergy Rash Verified 01/31/22 12:44 lisinopril AdvReac Other Verified 01/31/22 12:44 Family History Father Diabetes Heart disease Hypertension Thyroid disorder Mother Diabetes Hypertension Kidney disease Heart disease Brother Diabetes Sister Diabetes Thyroid disorder Surgical History H/O bilateral oophorectomy H/O: hysterectomy History of fusion of cervical spine History of hemilaminectomy Hx of colonoscopy Hx of cystoscopy S/P bilateral foot surgery S/P laparoscopic cholecystectomy (~11/20/17) Surgical History no surgical history no surgical history Social History Smoking Status: Former smoker alcohol intake: current alcohol intake frequency: holidays/special occasions only ROS Constitutional Constitutional: Denies anorexia, change in weight, chills, fatigue, fever(s), night sweats or weakness Eyes Eyes: Reports eye pain and other Details: She has dry eyes and the conjunctiva is frequently injected. Sometimes her eyes hurt and she sometimes sees halos ; Denies blurry vision, change in vision, discharge from eye(s) or loss of vision ENT HEENT: Reports epistaxis, nasal discharge, sinus pain and sinus pressure; Denies abnormal hearing, dysphagia, ear pain, headache(s), hearing loss, loss taste/smell, nasal congestion or sore throat Cardiovascular Cardiovascular: Denies chest pain, dyspnea on exertion, edema, lightheadedness, orthopnea, palpitations, paroxysmal nocturnal dyspnea or syncope Respiratory/Chest Respiratory/Chest: Reports cough; Denies dyspnea, shortness of breath at rest, shortness of breath with exertion or wheezing Gastrointestinal Gastrointestinal: Reports other Details: diarrhea has been controlled with eliminating fruits and vegetable from her diet. Used to be on Budesonide but, no longer has to take this since she has eliminated fruits and vegetables from her diet. ; Denies abdominal pain, constipation, diarrhea, dyspepsia, hematemesis, hematochezia, nausea or vomiting Genitourinary Genitourinary: Denies dysuria, hematuria, nocturia, urinary frequency, urinary hesitancy, urinary incontinence or urinary urgency Musculoskeletal Musculoskeletal: Reports joint pain and other Details: No red, swollen joints but she gets pain if she sits too long. No specific joints involved. ; Denies back pain, joint swelling or neck pain Integumentary Integumentary: Reports dry skin; Denies jaundice, rash or wounds Neurologic Neurologic: Reports focal weakness, headache(s), paresthesias and other Details: CVA with left facial droop, Left side weakness. ; Denies disequilibrium, seizures or tremor(s) Psychiatric Psychiatric: Reports other Details: Has had some anxiety and depression in the past but, not recently ; Denies anxiety, depression, homicidal ideation or suicidal ideation Endocrine Endocrinology: Denies change in body appearance, polydipsia or polyuria Hematologic/Lymphatic Hematologic/Lymphatic: Denies easy bleeding, easy bruising or lymphadenopathy Allergic/Immunologic Allergic/Immunologic: Reports GI upset w/certain foods and rhinitis; Denies eczemia or asthma Vital Signs Vital Signs Vital Signs: 03/22/22 13:03 03/22/22 22:00 03/22/22 22:00 Temperature 97.5 F L 97.5 F L Temperature Source Oral Oral Pulse Rate 80 76 75 Pulse Strength Respiratory Rate 16 16 Blood Pressure 147/93 H 166/93 H Blood Pressure Mean 111 117 Blood Pressure Source Monitor Monitor Blood Pressure Position Sitting Semi-Fowlers Blood Pressure Location Right Arm Left Arm Pulse Ox 93 96 Oxygen Delivery Method Room Air Room Air Room Air 03/22/22 22:00 03/23/22 06:42 03/23/22 08:03 Temperature Temperature Source Pulse Rate Pulse Strength Normal (2+) Respiratory Rate Blood Pressure Blood Pressure Mean Blood Pressure Source Blood Pressure Position Blood Pressure Location Pulse Ox 96 96 Oxygen Delivery Method Room Air 03/23/22 08:29 03/23/22 10:00 Temperature 97.9 F Temperature Source Oral Pulse Rate 86 Pulse Strength Normal (2+) Respiratory Rate 16 Blood Pressure 138/92 H Blood Pressure Mean 107 Blood Pressure Source Monitor Blood Pressure Position Semi-Fowlers Blood Pressure Location Left Arm Pulse Ox 95 Oxygen Delivery Method Room Air Weight Weight: 159 lb 2.78 oz Body Mass Index (BMI) 25.7 Indicators for Scoring Admitted with or Primary Diagnosis of CVA/Stroke: Yes Hx of CVA/Stroke: Yes Modified Nelson Score MRS Score at time of Evaluation: 3-Moderate disability NIHSS NIHSS 1a. Level of Consciousness: Alert; keenly responsive 1b. LOC Questions: Answers BOTH questions correctly. 1c. LOC Commands: Performs both tasks correctly. 2. Best Gaze: Normal 3. Visual: No visual loss 4. Facial Palsy: Partial paralysis (total or near-total paralysis of lower face) 5a. Left Arm: Drift; arm drifts downward but doesn?t hit the bed (mild pronator drift with mild drift toward the bed) 5b. Right Arm: No drift; arm holds 90 (or 45) degrees for full 10 seconds 6a. Left Leg: No drift; leg holds 30-degree position for full 5 seconds 6b. Right Leg: No drift; leg holds 30-degree position for full 5 seconds 7. Limb Ataxia: Present in 1 limb (LUE) 8. Sensory: [id number] sensory loss; 9. Best Language: No aphasia; normal 10. Dysarthria: Normal 11. Extinction and Inattention: No abnormality Total: 5 Stroke Questions Stroke Team Activated: No (she is in rehab for completed R lacunar ischemic CVC) Physical Exam Const alert, oriented x3, no apparent distress and well nourished General Appearance: cooperative and well developed Orientation / Consciousness: Negative for confused HEENT normocephalic Mouth: dry mucous membranes Eyes PERRL and EOMs intact bilaterally Eyes Narrative: she has episcleritis in both eyes Neck no lymphadenopathy, no JVD, No nodes and no carotid bruits General: trachea midline Resp normal respiratory effort, normal air movement and clear to auscultation bilaterally Resp Narrative: No conversational dyspnea Effort and Inspection: Negative for tachypneic or respiratory distress Cardio regular rate, regular rhythm, S1 normal heart sound, S2 normal heart sound, no murmurs, no rub and no gallops Cardio Narrative: NO ectopy GI normal to inspection, nondistended, normoactive bowel sounds, soft to palpation and non-tender GI Narrative: no bruits and no guarding with palpation Extremity normal capillary refill and no calf tenderness General Extremity: no tenderness to palpation of joints or extremities; Negative for edema Skin no wounds, no jaundice, no petechiae and no mottling General Skin Exam: no breakdown Rashes: no rashes Neuro Neuro Narrative: marked left facial droop, decreased sensation of the Left face, weakness in the LUE>>>LLE, no neglect Difficulty with finger to nose with the LUE Psych thought process normal, cooperative and affect normal Appearance: appropriate Thought Content: No suicidality, No delusion(s) and No hallucination(s) Results Lab / Micro Data Result Diagrams: 03/23/22 07:25 03/23/22 07:25 Labs: Laboratory Results - last 24 hr 03/22/22 16:31: POC Glucose 105 03/23/22 07:25: WBC 6.9, RBC 5.80 H, Hgb 15.8 H, Hct 46.9, MCV 80.9 L, MCH 27.2, MCHC 33.7, RDW Std Deviation 36.3, RDW Coeff of Amelie 12.4, Plt Count 314, MPV 9.3 03/23/22 07:25: Sodium 136, Potassium 2.8 L, Chloride 102, Carbon Dioxide 25.0, Anion Gap 9, BUN 22 H, Creatinine 0.64, Estim Creat Clear Calc 82.04, Est GFR (MDRD) Af Amer 119, Est GFR (MDRD) Non-Af 99, BUN/Creatinine Ratio 34.3 H, Glucose 106, Calcium 8.7, Phosphorus 3.0, Magnesium 2.5, Total Bilirubin 0.70, AST 29, ALT 39, Alkaline Phosphatase 62, Total Protein 7.2, Albumin 3.6, Globulin 3.6, Albumin/Globulin Ratio 1.0 03/23/22 07:31: POC Glucose 115 H Assessment & Plan Assessment/Plan (1) Physical debility: (2) Stroke/cerebrovascular accident: (3) Dehydration: (4) Hypokalemia: (5) Elevated TSH: (6) 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 With the sinus disease starting in the 20's, episcleritis, protein in the urine, microscopic colitis and hypokalemia I suspect she has underlying autoimmune disease.......She will need to follow up with rheumatology and now understands whay this is necessary. PLAN: Plan PLAN PT for gait stability OT for ADL's ST for evaluation Analgesics as needed Bowel protocol - maintain on current diet for microscopic colitis with no fruits and vegetables but, decrease fat in the diet. Fall precautions Assess for Anxiety/Depression GI prophylaxis with Protonix DVT prophylaxis with enoxaparin Follow up with Dr. Bella, rheumatology and neurology following DC from IP Rehab AM lab including CMP, CBC, Mag and Phos - personally reviewed. ESR and CRP supplement potassium and recheck BMP in the AM Hydrate Hydralazine PRN for BP > 150/85 Hold Motrin while she is taking ASA and Plavix Increase the Cozaar to 50 mg Charges/Coding Visit Charges Inpatient E&M: 71961 Init Hosp L3
[2022-03-23 12:46] LABS: CRP 3.28 mg/L (0.0-3.0)
[2022-03-23 13:13] LABS: Erythrocyte Sedimentation Rate 22 mm/hr (0-30)
[2022-03-23] MEDS: Potassium Chloride Oral Tablet 20 MEQ 40 MEQ PO (13:29)
[2022-03-23 13:54] LABS: Bacteria 0 SEEN /hpf (None Seen); Color, Urine Yellow (Yellow); Glucose, Dipstick Normal (Normal); Ketone-Dipstick 50 mg/dl (Negative); Leukocyte Esterase-Dipstick 25 /ul (Negative); Mucous, Urine 0 SEEN /hpf (<or=2+); Nitrite-Dipstick Negative (Negative); Occult Blood-Urine Negative /ul (Negative); Protein-Dipstick Negative (Negative); Red Blood Cells-Urine 0 SEEN /hpf (0-5); Squamous Epithelial Cells - UA 0 SEEN /hpf (5-10); Urine Bilirubin Dipstick Negative (Negative); Urine Clarity Clear (Clear); Urine Urobilinogen Normal (Normal); Urine pH 6.5 (5.0 - 8.0)
[2022-03-23 14:01] LABS: White Blood Cells 0-5 SEEN /hpf (0-5)
--- NOTE | 2022-03-23 14:07 | REHABEVAL_ITS ---
Admission Information Primary Diagnosis:: Visit goal debility secondary to right lacunar CVA. Status Changes from Prescreening?: No changes Identified Actual Problem List:: Alteration in Sleep, Mobility Impaired, Self Care Deficit, BP, Hypertension, Fluid Change-Dehydration and Alteration-Leisure Activ. Potential Problem List:: DVT, Bleeding, Infection, UTI, Aspiration, Falls, Skin Integrity and Depression Risk of Complications DVT: LMWH and AMITA Hose Bleeding: Monitor Lab Values, Nursing to Teach Precautions for anti-coagulation therapy., Wound, if applicable, to be assessed every shift. and Stroke patients assessed for lethargy or change in status. Infection: Clinical Staff to Monitor for S/S of infection: and S/S of infection include fever, redness, warmth, etc. Urinary Tract Infection: Monitor for frequency, burning, discomfort, or incontinence. and Nursing will obtain urine sample for urinalysis and C&S when ordered. Aspiration: Clinical staff will monitor for coughing, drooling, congestion., Speech will evaluate swallowing and dsyphasia. and Nursing will monitor patient swallowing during meals. Falls: Patient will be evaluated for Fall Precautions and Patient will be placed on Fall Precautions as indicated per protocol. Skin Breakdown: Nursing will assess skin daily using assessment tool. and Nursing will place on Skin Breakdown Precautions as indicated. Pain: Clinical staff will assess patient's pain level per protocol., Medications will be given, if needed, and the pain level reassessed. and Other methods: Massage, distraction, decrease stimulus, etc. used PRN. Plan of Care Patient requires physician specializing in physical medicine and rehab oversight to provide close medical supervision of rehab issues including: Pain Management, Sleep Problems, Bowel and Bladder, Medical and co-morbidity Management, DVT prophylaxis, Rehabilitation Leadership and Coordination of treatment team Patient needs Physical Therapy: For a minimum of 1 hour and At least 5 out of 7 days Patient needs Physical Therapy to improve:: Mobility, Strengthening, Transfers, Stretching, ROM, Endurance, Stairs, Gait and Balance Patient needs Occupational Therapy: For a minimum of 1 hour and At least 5 out of 7 days Patient needs Occupational Therapy to improve ADL's incl.: Eating, Grooming, Bathing, Dressing, Toileting, Toilet transfers, Community Reintegration, Higher functioning activities, Household tasks, Adaptive Equipment, Splinting and Other activities as determined Patient requires speech therapy: For a minimum of 1 hour and At least 5 out of 7 days Patient requires speech therapy for: Swallowing, Cognition, Language Skills and Compensatory Strategies Patient requires 24/ Rehabilitation Nursing for: Pain Issues, Identifying and preventing risk factors, Monitoring and reporting current medical conditions, Assisting with ambulation, transfer, and all ADL's, Teaching patients about disease process and medications, Family teaching, Providing safe environment, Bowel and Bladder Issues, Skin integrity and Medication Management Patient needs Property Utilization Officer/ Case Management for: Discharge Planning, Arranging Home Equipment or Services and Family Interventions Patient needs Dietary and Nutrition Services for: Adequate Nutrition, Nutritional Supplements and Nutritional Education Goals Patient will remain: free from falls and or injury at time of discharge. Patient will perform bed mobility at: MOD I level of assist. Patient will complete transfers from bed to chair at: MOD I level of assist. Patient will ambulate: - (150 ft with str cane) Patient will complete upper body dressing at: MOD I level of assist. Patient will complete lower body dressing at: MOD I level of assist. Patient will complete toileting at: - (supervision) Patient will perform bathing at: Standby Assist. (supervision) Patient will complete grooming at: MOD I level of assist. Patient will complete home management skills at: MOD I level of assist. Patient will achieve: - (5 steps) Patient will have pain level of: of 3 or less Patient's skin will: remain intact Patient will receive: adequate nutrition. Discharge Planning Estimated Length of stay (days): 21 Anticipated D/C Destination: Home Was Preadmission Assessment Accurate?: Yes
[2022-03-23 16:26] LABS: Bedside Glucose 98 mg/dL (74-106)
[2022-03-23 19:53] VITALS: BP 144/91; PULSE 81; RESP 14; TEMP 36.8; O2SAT 96
[2022-03-23] MEDS: Loratadine 10 MG Tablet PO (21:26)
[2022-03-23] MEDS: Atorvastatin Calcium 40 MG Tablet PO (21:26)
[2022-03-23] MEDS: traZODone 100 MG Tablet PO (21:26)
[2022-03-24] MEDS: SEMAGLUTIDE 14 MG TABLET PO (06:00)
[2022-03-24] MEDS: Enoxaparin 40 MG/0.4 ML Syringe SC (06:00)
[2022-03-24 06:31] LABS: Anion Gap 7 (5-15); BUN 19 mg/dL (7-18); BUN/Creat Ratio 32.4 RATIO (10-20); Calcium,Total 8.7 mg/dL (8.5-10.1); Chloride 109 mmol/L (98-107); Creatinine, Serum 0.59 mg/dL (0.55-1.02); EST Glomerular Filtration Rate 110 mL/min (>60); Est Glom Filt Rate - Afr Amer 133 mL/min (>60); Estimated Creatinine Clearance 88.99 ml/min; Glucose 90 mg/dL (74-106); Potassium 3.7 mmol/L (3.5-5.1); Sodium Level 140 mmol/L (136-145)
[2022-03-24 06:41] LABS: Bedside Glucose 104 mg/dL (74-106)
[2022-03-24 07:23] VITALS: BP 141/88; PULSE 82; RESP 18; TEMP 36.8; O2SAT 94
[2022-03-24] MEDS: Cholecalciferol (Vit D3) 125 MCG CAPSULE (5,000 UNITS) PO (07:46)
[2022-03-24] MEDS: Aspirin 81 MG TAB.CHEW PO (07:46)
[2022-03-24] MEDS: Losartan Potassium 50 MG Tablet PO (07:47)
[2022-03-24] MEDS: Senna/Docusate Sodium 1 Tablet 2 TABLET PO ×2 (07:48→20:44)
[2022-03-24] MEDS: amLODIPine 5 MG Tablet PO (07:48)
[2022-03-24] MEDS: Clopidogrel Bisulfate 75 MG Tablet PO (07:48)
[2022-03-24] MEDS: Pantoprazole Sodium 40 MG Tablet PO (07:48)
[2022-03-24] MEDS: Acetaminophen 325 MG Tablet 650 MG PO (08:03)
[2022-03-24 11:25] VITALS: O2SAT 96
[2022-03-24 16:31] LABS: Bedside Glucose 86 mg/dL (74-106)
[2022-03-24 20:00] VITALS: BP 154/89; PULSE 72; RESP 18; TEMP 36.6; O2SAT 96
[2022-03-24 20:35] VITALS: PULSE 72; RESP 18; O2SAT 96
[2022-03-24] MEDS: Loratadine 10 MG Tablet PO (20:44)
[2022-03-24] MEDS: Atorvastatin Calcium 40 MG Tablet PO (20:44)
[2022-03-24] MEDS: traZODone 100 MG Tablet PO (20:44)
[2022-03-25] VITALS (7 sets, daily range): BP systolic 147–152; BP diastolic 89–97; PULSE 69–84; RESP 15–17; TEMP 35.9–36.4; O2SAT 94–96
[2022-03-25] MEDS: Enoxaparin 40 MG/0.4 ML Syringe SC (06:14)
[2022-03-25] MEDS: hydrALAZINE 10 MG Tablet PO ×3 (06:14→23:44)
[2022-03-25] MEDS: Acetaminophen 325 MG Tablet 650 MG PO ×2 (06:56→20:27)
[2022-03-25] MEDS: Aspirin 81 MG TAB.CHEW PO (09:03)
[2022-03-25] MEDS: Cholecalciferol (Vit D3) 125 MCG CAPSULE (5,000 UNITS) PO (09:03)
[2022-03-25] MEDS: Pantoprazole Sodium 40 MG Tablet PO (09:03)
[2022-03-25] MEDS: Losartan Potassium 50 MG Tablet PO (09:03)
[2022-03-25] MEDS: amLODIPine 5 MG Tablet PO ×2 (09:04→18:38)
[2022-03-25] MEDS: SEMAGLUTIDE 14 MG TABLET PO (09:04)
[2022-03-25] MEDS: Clopidogrel Bisulfate 75 MG Tablet PO (09:05)
--- NOTE | 2022-03-25 17:45 | PCM.PROGNOTE ---
Subjective Subjective Afebrile VSS Maintaining appropriate oxygen saturation on RA Discussed with nursing - no problems that need addressed Reviewed the PT/OT/ST notes Making good progress. Medication list reviewed. No complaints today. Objective Data Objective Data Vital Signs: Vital Signs Temp Pulse Resp BP Pulse Ox O2 Del Method 97.5 F L 84 15 147/89 H 94 Room Air 03/25/22 07:35 03/25/22 07:35 03/25/22 07:35 03/25/22 07:35 03/25/22 07:35 03/25/22 07:35 Oxygen Delivery Method Room Air Weight: 159 lb 2.78 oz Body Mass Index (BMI) 25.7 Intake & Output: Intake and Output for Last 24 Hours 03/23/22 03/24/22 03/25/22 23:59 23:59 23:59 Intake Total 801.67 / 801.67 1865.00 / 1865.00 1665 / 1665 Output Total 500 / 500 Balance 301.67 / 301.67 1865.00 / 1865.00 1665 / 1665 Lab / Micro Data Result Diagrams: 03/23/22 07:25 03/24/22 05:27 Physical Exam Const alert, oriented x3 and no apparent distress General Appearance: cooperative HEENT Mouth: dry mucous membranes Eyes Eyes Narrative: the droopy left lower lid is less droopy today and her eyes are more similar in size when I look at her now. 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 Continue therapy. She was ambulating in the byrd with a cane today. 2. BP is not adequately controlled. Will give 5 mg of amlodipine now and increase the daily dose to 10 mg daily. 2. Continue to monitor the BP closely. 4. DC IV fluids today. Continue to encourage increased fluid intake.
[2022-03-25] MEDS: Loratadine 10 MG Tablet PO (20:27)
[2022-03-25] MEDS: Atorvastatin Calcium 40 MG Tablet PO (20:27)
[2022-03-25] MEDS: traZODone 100 MG Tablet PO (20:28)
[2022-03-26] VITALS: BP 143/92; PULSE 79
[2022-03-26 02:48] VITALS: BP 129/86; PULSE 72
--- NOTE | 2022-03-26 02:49 | NURSING ---
pt had been apresoline 1830 along with an additional 5mg of norvasc on 03/25, a recheck of pt bp art 2014 was 150/97 with ap of 68. pt unable to medicated at this time with an additional of apresoline as per order. will continue to monitor pt and recheck bp again . pt is denies any sx. 0000 pt bp rechecked again at this time and was 143/92 and ap was 79. pt medicated with ordered apresoline at this time. pt continues to deny any sx. 0245 pt p to the br and returned to bed, rn to check bp at this time and value was 129/86 and ap 72.
[2022-03-26] MEDS: Enoxaparin 40 MG/0.4 ML Syringe SC (05:14)
[2022-03-26 05:15] VITALS: BP 142/86; PULSE 81
[2022-03-26] MEDS: hydrALAZINE 10 MG Tablet PO (05:15)
[2022-03-26 07:46] VITALS: BP 142/86; PULSE 85; RESP 16; TEMP 37.2; O2SAT 95
[2022-03-26] MEDS: Pantoprazole Sodium 40 MG Tablet PO (08:07)
[2022-03-26] MEDS: amLODIPine 10 MG Tablet PO (08:07)
[2022-03-26] MEDS: Aspirin 81 MG TAB.CHEW PO (08:07)
[2022-03-26] MEDS: SEMAGLUTIDE 14 MG TABLET PO (08:07)
[2022-03-26] MEDS: Clopidogrel Bisulfate 75 MG Tablet PO (08:07)
[2022-03-26] MEDS: Cholecalciferol (Vit D3) 125 MCG CAPSULE (5,000 UNITS) PO (08:07)
[2022-03-26] MEDS: Losartan Potassium 50 MG Tablet PO (08:08)
[2022-03-26] MEDS: Senna/Docusate Sodium 1 Tablet 2 TABLET PO (08:10)
--- NOTE | 2022-03-26 14:08 | PCM.PROGNOTE ---
Subjective Subjective Afebrile VSS-blood pressures are trending down but the blood pressure this morning was still slightly elevated at 142/86. Heart rate is within normal limits. Maintaining appropriate oxygen saturation on RA Oral intake is good Discussed with nursing - no problems that need addressed Reviewed the PT/OT/ST notes Medication list reviewed. Cat was ambulating with no AD today. she complains that her Left hand is swollen and I explained that is because she is not using that arm as much and the swelling is due to gravity from having the arm mostly dependent. We had a discussion about Norvasc and she tells me that her legs always swell when she takes Norvasc > 5 mg a day. She was on HCTZ in the past but, it was stopped because of the kidney stones. Her K was decreased at 2.8 on the despite being off a diuretic. Recheck on the was 3.7 following supplementation. I named several beta blockers and she has never taken any of them. She denies constipation, N/V/abd pain, CP, SOB, lightheadedness. She is very happy with her progression in therapy. Objective Data Objective Data Vital Signs: Vital Signs Temp Pulse Resp BP Pulse Ox O2 Del Method 98.9 F 85 16 142/86 H 95 Room Air 03/26/22 07:46 03/26/22 07:46 03/26/22 07:46 03/26/22 07:46 03/26/22 07:46 03/26/22 07:40 Oxygen Delivery Method Room Air Weight: 162 lb 4.163 oz Body Mass Index (BMI) 25.7 Intake & Output: Intake and Output for Last 24 Hours 03/24/22 03/25/22 03/26/22 23:59 23:59 23:59 Intake Total 1865.00 / 1865.00 1665 / 1665 Balance 1865.00 / 1865.00 1665 / 1665 Lab / Micro Data Result Diagrams: 03/23/22 07:25 03/24/22 05:27 Physical Exam Const alert, oriented x3 and no apparent distress Constitutional Narrative: Sitting in the chair at the bedside. General Appearance: cooperative HEENT HEENT Narrative: I reminded her to increase fluid intake so we maintain good IV volume to maintain good cerebral blood flow. 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 Continue therapy. Making good progress. 2. Put in a referral for her to be seen at the [facility] for increased c ANCA...........Not sure why she had a stroke.........could she have vasculitis? 3. DC Norvasc and start Metoprolol tonight. Continue Cozaar at this time. Charges/Coding Visit Charges Inpatient E&M: 29691 Subs Hosp L2
[2022-03-26 20:11] VITALS: BP 132/85; PULSE 72; RESP 17; TEMP 36.4; O2SAT 98
[2022-03-26 20:23] VITALS: BP 135/85; PULSE 72
[2022-03-26] MEDS: Atorvastatin Calcium 40 MG Tablet PO (20:23)
[2022-03-26] MEDS: Metoprolol(XL)Succ 50 MG Tablet PO (20:23)
[2022-03-26] MEDS: Loratadine 10 MG Tablet PO (20:23)
[2022-03-26] MEDS: traZODone 100 MG Tablet PO (20:24)
[2022-03-27] MEDS: Enoxaparin 40 MG/0.4 ML Syringe SC (05:43)
[2022-03-27 06:13] LABS: Anion Gap 10 (5-15); BUN 21 mg/dL (7-18); BUN/Creat Ratio 28.7 RATIO (10-20); Calcium,Total 9.7 mg/dL (8.5-10.1); Chloride 107 mmol/L (98-107); Creatinine, Serum 0.73 mg/dL (0.55-1.02); EST Glomerular Filtration Rate 85 mL/min (>60); Est Glom Filt Rate - Afr Amer 103 mL/min (>60); Estimated Creatinine Clearance 71.92 ml/min; Glucose 120 mg/dL (74-106); Potassium 3.1 mmol/L (3.5-5.1); Sodium Level 139 mmol/L (136-145)
[2022-03-27 07:39] VITALS: BP 109/77; PULSE 77; RESP 16; TEMP 36.6; O2SAT 95
[2022-03-27] MEDS: SEMAGLUTIDE 14 MG TABLET PO (08:09)
[2022-03-27] MEDS: Losartan Potassium 50 MG Tablet PO (08:10)
[2022-03-27] MEDS: Clopidogrel Bisulfate 75 MG Tablet PO (08:10)
[2022-03-27] MEDS: Pantoprazole Sodium 40 MG Tablet PO (08:10)
[2022-03-27] MEDS: Aspirin 81 MG TAB.CHEW PO (08:10)
[2022-03-27] MEDS: Cholecalciferol (Vit D3) 125 MCG CAPSULE (5,000 UNITS) PO (08:11)
[2022-03-27] MEDS: Senna/Docusate Sodium 1 Tablet 2 TABLET PO ×2 (08:56→20:36)
--- NOTE | 2022-03-27 11:33 | PCM.PROGNOTE ---
Subjective Subjective Cat was seen on team rounds today. Her Calvin was present in the room. Afebrile VSS-blood pressure this morning is 109/77 with a heart rate of 77. She received her first dose of metoprolol XL 50 mg last night. She also got Cozaar and amlodipine 10 mg yesterday but amlodipine is now been discontinued. Maintaining appropriate oxygen saturation on RA Oral intake is good Discussed with nursing - no problems that need addressed Reviewed the PT/OT/ST notes Medication list reviewed. Cat denies chest pain, shortness of breath, cephalgia, nausea, vomiting, abdominal pain, burning with urination, calf pain. She does have adizzy sensation when she is in therapy and moving her head a lot. she does not have this when she is in her room. Objective Data Objective Data Vital Signs: Vital Signs Temp Pulse Resp BP Pulse Ox O2 Del Method 97.9 F 77 16 109/77 95 Room Air 03/27/22 07:39 03/27/22 07:39 03/27/22 07:39 03/27/22 07:39 03/27/22 07:39 03/27/22 07:39 Oxygen Delivery Method Room Air Weight: 162 lb 4.163 oz Body Mass Index (BMI) 25.7 Intake & Output: Intake and Output for Last 24 Hours 03/25/22 03/26/22 03/27/22 23:59 23:59 23:59 Intake Total 1665 / 1665 Balance 1665 / 1665 Lab / Micro Data Result Diagrams: 03/28/22 05:27 03/28/22 05:27 Labs: Laboratory Results - last 24 hr 03/27/22 05:41: Sodium 139, Potassium 3.1 L, Chloride 107, Carbon Dioxide 22.0, Anion Gap 10, BUN 21 H, Creatinine 0.73, Estim Creat Clear Calc 71.92, Est GFR (MDRD) Af Amer 103, Est GFR (MDRD) Non-Af 85, BUN/Creatinine Ratio 28.7 H, Glucose 120 H, Calcium 9.7, Magnesium 2.0 Physical Exam Const alert, oriented x3 and no apparent distress General Appearance: cooperative Orientation / Consciousness: Negative for confused HEENT Mouth: dry mucous membranes Resp clear to auscultation bilaterally Cardio regular rate and regular rhythm GI normal to inspection, nondistended, normoactive bowel sounds, soft to palpation and non-tender Assessment & Plan Assessment/Plan (1) Physical debility: (2) Stroke/cerebrovascular accident: (3) Left-sided weakness: (4) Facial droop: (5) Hypokalemia: (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 Continue therapy 2. BMP, HH and magnesium in the AM. 3. Continue losartan 50 mg daily and metoprolol XL 50 mg nightly. We will continue to monitor blood pressure every 4 hours during the day for the next 2 days 4. Discussed goals for tx of HTN, DM, and hyperlipidemia. 5. [facility] will call Cat to schedule an appt. Referral was faxed to them yesterday. 6. 30 day event monitor at DC to r/o PAF as etiology of the CVA. Charges/Coding Visit Charges Inpatient E&M: 60230 Subs Hosp L2
[2022-03-27 12:04] VITALS: BP 129/92; PULSE 71; TEMP 36.7; O2SAT 96
--- NOTE | 2022-03-27 12:40 | CASEMGMT ---
Social Work IDT met with patient and for Team meeting. Discussed patient's progress in PT/OT/ST/SN. Educated to Medicare approval for 13 days with DC 04/04. Pts goal is to DC home with . is retired and can assist as needed. However, pt has made great progress. Recommending outpatient PT/OT at DC, with no DME needs. Educated and provided brochure to stroke support group. Applauded pt for working hard, staying motivated and making great improvements. SW to follow and coordinate DC referrals. Gia Friedman, [employer]
[2022-03-27 14:43] VITALS: BMI 25.7
[2022-03-27 16:04] VITALS: BP 125/80; PULSE 68; RESP 18
[2022-03-27] MEDS: Loratadine 10 MG Tablet PO (20:32)
[2022-03-27] MEDS: traZODone 100 MG Tablet PO (20:32)
[2022-03-27] MEDS: Atorvastatin Calcium 40 MG Tablet PO (20:32)
[2022-03-27 20:35] VITALS: BP 126/81; PULSE 75
[2022-03-27] MEDS: Metoprolol(XL)Succ 50 MG Tablet PO (20:35)
[2022-03-28 00:44] VITALS: BMI 25.7
[2022-03-28 05:34] LABS: Hemoglobin 14.6 g/dL (12.0-15.0)
[2022-03-28 05:59] LABS: Anion Gap 6 (5-15); BUN 20 mg/dL (7-18); BUN/Creat Ratio 29.2 RATIO (10-20); Calcium,Total 9.4 mg/dL (8.5-10.1); Chloride 107 mmol/L (98-107); Creatinine, Serum 0.69 mg/dL (0.55-1.02); EST Glomerular Filtration Rate 91 mL/min (>60); Est Glom Filt Rate - Afr Amer 111 mL/min (>60); Estimated Creatinine Clearance 76.09 ml/min; Glucose 116 mg/dL (74-106); Magnesium 2.2 mg/dL (1.6-2.6); Potassium 3.3 mmol/L (3.5-5.1); Sodium Level 139 mmol/L (136-145)
[2022-03-28] MEDS: Enoxaparin 40 MG/0.4 ML Syringe SC (06:00)
[2022-03-28] MEDS: Losartan Potassium 50 MG Tablet PO (07:37)
[2022-03-28] MEDS: Clopidogrel Bisulfate 75 MG Tablet PO (07:38)
[2022-03-28] MEDS: Pantoprazole Sodium 40 MG Tablet PO (07:38)
[2022-03-28] MEDS: Senna/Docusate Sodium 1 Tablet 2 TABLET PO (07:38)
[2022-03-28] MEDS: Cholecalciferol (Vit D3) 125 MCG CAPSULE (5,000 UNITS) PO (07:38)
[2022-03-28] MEDS: SEMAGLUTIDE 14 MG TABLET PO (07:39)
[2022-03-28] MEDS: Aspirin 81 MG TAB.CHEW PO (07:39)
[2022-03-28 07:45] VITALS: BP 111/74; PULSE 79; RESP 16; TEMP 36.1; O2SAT 97
[2022-03-28 12:00] VITALS: BP 140/76; PULSE 72
[2022-03-28] MEDS: Acetaminophen 325 MG Tablet 650 MG PO (13:30)
[2022-03-28 16:00] VITALS: BP 106/68; PULSE 75
[2022-03-28 16:01] VITALS: BMI 25.7
[2022-03-28 20:20] VITALS: BP 117/78; PULSE 76; RESP 16; TEMP 36.6; O2SAT 96
[2022-03-28 20:40] VITALS: O2SAT 96
[2022-03-28 21:07] VITALS: BP 117/78; PULSE 76
[2022-03-28] MEDS: Atorvastatin Calcium 40 MG Tablet PO (21:07)
[2022-03-28] MEDS: Loratadine 10 MG Tablet PO (21:07)
[2022-03-28] MEDS: traZODone 100 MG Tablet PO (21:07)
[2022-03-28] MEDS: Metoprolol(XL)Succ 50 MG Tablet PO (21:07)
[2022-03-29] VITALS: BP 140/81; PULSE 79
[2022-03-29 05:00] VITALS: BP 133/81; PULSE 75; RESP 16; TEMP 36.6; O2SAT 95
[2022-03-29] MEDS: Enoxaparin 40 MG/0.4 ML Syringe SC (05:36)
[2022-03-29] MEDS: Clopidogrel Bisulfate 75 MG Tablet PO (07:49)
[2022-03-29] MEDS: Cholecalciferol (Vit D3) 125 MCG CAPSULE (5,000 UNITS) PO (07:49)
[2022-03-29] MEDS: Aspirin 81 MG TAB.CHEW PO (07:49)
[2022-03-29] MEDS: Pantoprazole Sodium 40 MG Tablet PO (07:49)
[2022-03-29] MEDS: SEMAGLUTIDE 14 MG TABLET PO (07:49)
[2022-03-29] MEDS: Losartan Potassium 50 MG Tablet PO (07:49)
[2022-03-29 08:01] VITALS: BP 121/84; PULSE 78; RESP 16; TEMP 35.8; O2SAT 97
[2022-03-29 08:50] VITALS: BMI 25.7
[2022-03-29] MEDS: Acetaminophen 325 MG Tablet 650 MG PO (17:42)
[2022-03-29 20:50] VITALS: BP 137/84; PULSE 71; PULSE 78; RESP 16; TEMP 36.5; O2SAT 98; BMI 25.7
[2022-03-29 20:59] VITALS: BP 137/84; PULSE 78
[2022-03-29] MEDS: Atorvastatin Calcium 40 MG Tablet PO (20:59)
[2022-03-29] MEDS: Metoprolol(XL)Succ 50 MG Tablet PO (20:59)
[2022-03-29] MEDS: Loratadine 10 MG Tablet PO (20:59)
[2022-03-29] MEDS: traZODone 100 MG Tablet PO (21:00)
[2022-03-29] MEDS: Senna/Docusate Sodium 1 Tablet 2 TABLET PO (21:03)
[2022-03-30] MEDS: Enoxaparin 40 MG/0.4 ML Syringe SC (05:32)
[2022-03-30] MEDS: Acetaminophen 325 MG Tablet 650 MG PO (05:32)
[2022-03-30 07:33] VITALS: BP 138/79; PULSE 76; RESP 16; TEMP 36.4; O2SAT 97
[2022-03-30] MEDS: Cholecalciferol (Vit D3) 125 MCG CAPSULE (5,000 UNITS) PO (08:00)
[2022-03-30] MEDS: Pantoprazole Sodium 40 MG Tablet PO (08:00)
[2022-03-30] MEDS: Aspirin 81 MG TAB.CHEW PO (08:00)
[2022-03-30] MEDS: Losartan Potassium 50 MG Tablet PO (08:00)
[2022-03-30] MEDS: Clopidogrel Bisulfate 75 MG Tablet PO (08:01)
[2022-03-30] MEDS: SEMAGLUTIDE 14 MG TABLET PO (08:01)
[2022-03-30 10:06] VITALS: BMI 25.7
[2022-03-30 18:13] VITALS: BP 153/92; PULSE 64
[2022-03-30] MEDS: hydrALAZINE 10 MG Tablet PO ×2 (18:13→23:49)
[2022-03-30 20:00] VITALS: BP 158/95; PULSE 70; RESP 16; TEMP 36.3; O2SAT 96; O2SAT 98; BMI 25.7
[2022-03-30 20:14] VITALS: BP 158/95; PULSE 70
[2022-03-30] MEDS: Metoprolol(XL)Succ 50 MG Tablet PO (20:14)
[2022-03-30] MEDS: traZODone 100 MG Tablet PO (20:14)
[2022-03-30] MEDS: Loratadine 10 MG Tablet PO (20:14)
[2022-03-30] MEDS: Atorvastatin Calcium 40 MG Tablet PO (20:15)
[2022-03-30] MEDS: Senna/Docusate Sodium 1 Tablet 2 TABLET PO (20:17)
[2022-03-30 23:49] VITALS: BP 135/87; PULSE 66
[2022-03-31] VITALS (7 sets, daily range): BP systolic 123–164; BP diastolic 85–96; PULSE 60–70; RESP 14–17; TEMP 36.3–36.7; O2SAT 93–98; BMI 25.7
[2022-03-31] MEDS: Acetaminophen 325 MG Tablet 650 MG PO (06:08)
[2022-03-31] MEDS: Enoxaparin 40 MG/0.4 ML Syringe SC (06:09)
[2022-03-31] MEDS: SEMAGLUTIDE 14 MG TABLET PO (06:09)
[2022-03-31] MEDS: hydrALAZINE 10 MG Tablet PO ×3 (06:10→20:30)
[2022-03-31] MEDS: Cholecalciferol (Vit D3) 125 MCG CAPSULE (5,000 UNITS) PO (07:35)
[2022-03-31] MEDS: Losartan Potassium 50 MG Tablet PO ×2 (07:35→13:22)
[2022-03-31] MEDS: Aspirin 81 MG TAB.CHEW PO (07:35)
[2022-03-31] MEDS: Clopidogrel Bisulfate 75 MG Tablet PO (07:36)
[2022-03-31] MEDS: Pantoprazole Sodium 40 MG Tablet PO (07:36)
--- NOTE | 2022-03-31 12:21 | PN_ITS ---
Subjective Subjective Afebrile VSS - The BP in the AM is very good now but, the BP in the evening is high, even with the increases in the Cozaar to 50 mg. Heart rate is within normal limits. She denies any adverse effects with the addition of metoprolol to her drug regimen. Maintaining appropriate oxygen saturation on RA Discussed with nursing - no problems that need addressed Reviewed the PT/OT/ST notes Medication list reviewed. I explained about the BP and why it varies and What are goal is. Cat denies lightheadedness, vertigo, CP, SOB at rest, SOB with exertion, cough, nausea, vomiting, abd pain, diarrhea, constipation, dysuria, calf pain and ankle swelling. She continues to have problems with balance and has to cor rect for what her brain is telling her to do with regard to leaning and standing upright. I observed her ambulating in the byrd today without an AD and she turned her head and looked at me and said hello while continuing to walk and she did not lose her balance. She has made great progress with therapy. She is c/o constipation. She is taking Senna PRN and has been taking only 1 tab daily. She she took 2 tablets at night she had loose stool the next morning. We discussed taking Miralax instead so she would be drinking a glass of water with the softener. Objective Data Objective Data Vital Signs: Vital Signs Temp Pulse Resp BP Pulse Ox O2 Del Method 97.3 F L 70 17 123/85 H 93 Room Air 03/31/22 07:30 03/31/22 07:30 03/31/22 07:30 03/31/22 07:30 03/31/22 07:30 03/31/22 07:30 Oxygen Delivery Method Room Air Weight: 162 lb 4.163 oz Body Mass Index (BMI) 25.7 Intake & Output: Intake and Output for Last 24 Hours 03/29/22 03/30/22 03/31/22 23:59 23:59 23:59 Intake Total 480 / 480 Balance 480 / 480 Lab / Micro Data Result Diagrams: 03/28/22 05:27 03/28/22 05:27 Physical Exam Const alert, oriented x3 and no apparent distress Constitutional Narrative: pleasant and appropriate General Appearance: cooperative HEENT Mouth: dry mucous membranes Resp clear to auscultation bilaterally Cardio regular rate and regular rhythm Cardio Narrative: No ectopy GI normal to inspection, nondistended, normoactive bowel sounds, soft to palpation and non-tender Extremity no calf tenderness General Extremity: Negative for edema Skin General Skin Exam: no breakdown Rashes: no rashes Assessment & Plan Assessment/Plan (1) Physical debility: PLAN: Continue therapy. Discharge is planned for this Thursday and she will have outpatient therapy post discharge. (2) Left-sided weakness: PLAN: Improving. (3) Stroke/cerebrovascular accident: PLAN: Cryptogenic. Concerned whether or not this is related to the + cANCA and could she have a vasculitis? And even though she had no AF on telemetry will need a 30 day event monitor at [place]. [facility] has been sent a requisition for a consult and they told us they would call the patient to schedule an appt. (4) Facial droop: PLAN: Much improved. Speech is very clear with no slurring. (5) Hypokalemia: PLAN: This occurred while on Cozaar and off HCTZ. Will recheck a BMP in the AM and if it is once again low will start a daily supplement. (6) Insomnia: PLAN: resolved with Trazodone (7) HTN (hypertension): PLAN: The Metoprolol is controlling the a.m. blood pressure well. She takes Cozaar at 10 AM every morning. The blood pressures in the evening tend to be a little elevated. Will increase the Cozaar from 50 mg to 100 mg daily and give an extra 50 mg of Cozaar now. If this is not effective in controlling the blood pressure in the morning we will likely DC Cozaar and increase the metoprolol to twice daily. (8) Constipation: PLAN: Add MiraLAX 17 g daily with a full glass of water to her drug regimen. Advised her to increase her fluid intake to keep the stool soft and promote good bowel function.
[2022-03-31] MEDS: Polyethylene Glycol 3350 17 GM PACKET PO (16:59)
[2022-03-31] MEDS: Loratadine 10 MG Tablet PO (20:32)
[2022-03-31] MEDS: Metoprolol(XL)Succ 50 MG Tablet PO (20:32)
[2022-03-31] MEDS: Atorvastatin Calcium 40 MG Tablet PO (20:33)
[2022-03-31] MEDS: traZODone 100 MG Tablet PO (20:33)
[2022-03-31] MEDS: Senna/Docusate Sodium 1 Tablet 2 TABLET PO (20:36)
[2022-04-01 00:30] VITALS: BP 138/83; PULSE 72
--- NOTE | 2022-04-01 03:44 | NURSING ---
REVIEWED AND AGREE WITH CERTIFIED CONTROL SYSTEMS TECHNICIAN'S FUNCTIONAL ASSESSMENT AND HANDOFF CHARTING.
[2022-04-01] MEDS: Enoxaparin 40 MG/0.4 ML Syringe SC (06:47)
[2022-04-01] MEDS: SEMAGLUTIDE 14 MG TABLET PO (06:47)
[2022-04-01 07:30] VITALS: BP 112/77; PULSE 71; RESP 17; TEMP 35.9; O2SAT 96
[2022-04-01] MEDS: Polyethylene Glycol 3350 17 GM PACKET PO (08:29)
[2022-04-01] MEDS: Clopidogrel Bisulfate 75 MG Tablet PO (08:30)
[2022-04-01] MEDS: Losartan Potassium 100 MG Tablet PO (08:30)
[2022-04-01] MEDS: Aspirin 81 MG TAB.CHEW PO (08:30)
[2022-04-01] MEDS: Cholecalciferol (Vit D3) 125 MCG CAPSULE (5,000 UNITS) PO (08:30)
[2022-04-01] MEDS: Pantoprazole Sodium 40 MG Tablet PO (08:30)
--- NOTE | 2022-04-01 11:26 | PCM.PROGNOTE ---
Subjective Subjective Afebrile VSS - Cozaar was increased to 100 mg daily and she received 100 mg yesterday in hopes of better controlling the evening BP. Maintaining appropriate oxygen saturation on RA Oral intake is good Discussed with nursing - no problems that need addressed Reviewed the PT/OT/ST notes - Doing very well with therapy and will be ready for discharge home Thursday. Medication list reviewed. No complaints today with the exception of a dizzy/vertigo sensation when she is ambulating with PT and is being distracted by tossing a ball between them. she does not have this sensation if she is in her room or if she is ambulating without distraction. Objective Data Objective Data Vital Signs: Vital Signs Temp Pulse Resp BP Pulse Ox O2 Del Method 96.6 F L 71 17 112/77 96 Room Air 04/01/22 07:30 04/01/22 07:30 04/01/22 07:30 04/01/22 07:30 04/01/22 07:30 04/01/22 07:30 Oxygen Delivery Method Room Air Weight: 162 lb 4.163 oz Body Mass Index (BMI) 25.7 Intake & Output: Intake and Output for Last 24 Hours 03/30/22 03/31/22 04/01/22 23:59 23:59 23:59 Intake Total 960 / 960 Balance 960 / 960 Lab / Micro Data Result Diagrams: 03/28/22 05:27 03/28/22 05:27 Physical Exam Const alert and oriented x3 HEENT moist oral mucous membranes Resp normal respiratory effort and clear to auscultation bilaterally Cardio regular rate and regular rhythm Cardio Narrative: No ectopy GI normal to inspection, nondistended, normoactive bowel sounds, soft to palpation and non-tender Assessment & Plan Assessment/Plan (1) Stroke/cerebrovascular accident: (2) HTN (hypertension): (3) Hypokalemia: (4) 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 check a BMP in the AM 2. Continue therapy 3. If the BP continues to be high later in the day will DC Cozaar and make the beta cachorro BID. No diuretics due to hx of nephrolithiasis. 4. Needs an event monitor at DC. Charges/Coding Visit Charges Inpatient E&M: 06376 Subs Hosp L1
--- NOTE | 2022-04-01 15:49 | CASEMGMT ---
Social Work Spoke with pt about DC plans. Pt requesting [facility] PT/OT. Referral made via fax to [facility]. No DME needs. to transport. Plan: DC home with 04/04, [facility] PT/OT ANA GarsiaW
[2022-04-01 16:11] VITALS: BMI 25.7
[2022-04-01 17:23] VITALS: BP 141/89; PULSE 64
[2022-04-01] MEDS: hydrALAZINE 10 MG Tablet PO ×2 (17:23→21:22)
[2022-04-01 21:05] VITALS: BP 128/85; PULSE 64; RESP 18; TEMP 36.6; O2SAT 97; BMI 25.7
[2022-04-01] MEDS: traZODone 100 MG Tablet PO (21:20)
[2022-04-01] MEDS: Loratadine 10 MG Tablet PO (21:20)
[2022-04-01] MEDS: Atorvastatin Calcium 40 MG Tablet PO (21:20)
[2022-04-01] MEDS: Senna/Docusate Sodium 1 Tablet 2 TABLET PO (21:20)
[2022-04-01 21:21] VITALS: BP 128/85; PULSE 68
[2022-04-01] MEDS: Metoprolol(XL)Succ 50 MG Tablet PO (21:21)
[2022-04-01 21:22] VITALS: BP 128/85; PULSE 68
[2022-04-02] VITALS (7 sets, daily range): BP systolic 117–137; BP diastolic 68–89; PULSE 66–84; RESP 17; TEMP 36.7–37.1; O2SAT 93–94; BMI 25.7
--- NOTE | 2022-04-02 03:55 | NURSING ---
Reviewed and agree with Gary SWENSON, documentation and assessment charting.
[2022-04-02] MEDS: hydrALAZINE 10 MG Tablet PO (05:59)
[2022-04-02] MEDS: SEMAGLUTIDE 14 MG TABLET PO (05:59)
[2022-04-02] MEDS: Enoxaparin 40 MG/0.4 ML Syringe SC (05:59)
[2022-04-02 06:25] LABS: Anion Gap 6 (5-15); BUN 24 mg/dL (7-18); BUN/Creat Ratio 27.9 RATIO (10-20); Chloride 107 mmol/L (98-107); Creatinine, Serum 0.86 mg/dL (0.55-1.02); EST Glomerular Filtration Rate 70 mL/min (>60); Est Glom Filt Rate - Afr Amer 85 mL/min (>60); Estimated Creatinine Clearance 61.05 ml/min; Glucose 126 mg/dL (74-106); Potassium 3.8 mmol/L (3.5-5.1); Sodium Level 138 mmol/L (136-145)
[2022-04-02] MEDS: Aspirin 81 MG TAB.CHEW PO (07:58)
[2022-04-02] MEDS: Cholecalciferol (Vit D3) 125 MCG CAPSULE (5,000 UNITS) PO (08:04)
[2022-04-02] MEDS: Clopidogrel Bisulfate 75 MG Tablet PO (08:06)
[2022-04-02] MEDS: Pantoprazole Sodium 40 MG Tablet PO (08:06)
[2022-04-02] MEDS: Polyethylene Glycol 3350 17 GM PACKET PO (08:07)
[2022-04-02] MEDS: Metoprolol(XL)Succ 25 MG Tablet PO (08:07)
--- NOTE | 2022-04-02 10:26 | PN_ITS ---
Subjective Subjective Afebrile Blood pressure this a.m. is 121/86. Maintaining appropriate oxygen saturation on room air. Medication list was reviewed. Cozaar does not seem to be effective in controlling blood pressure and was discontinued yesterday. Metoprolol XL 25 mg every morning was started today and will continue with 50 mg metoprolol XL at at bedtime. Lab was personally reviewed. Sodium is normal at 138 and the potassium is 3.8. BUN is elevated at 24 with a creatinine of 0.86 and a BUN/creatinine ratio of 28. No BM since 03/28/22 documented. Cat denies lightheadedness, vertigo, CP, SOB at rest, SOB with exertion, c ough, nausea, vomiting, abd pain, diarrhea, constipation, dysuria, calf pain and ankle swelling. Continues to have the head sensation when she is ambulating and the therapist is distracting her. It is improving. No adverse SE's with Metoprolol. Sleeping well at night with Trazodone. Objective Data Objective Data Vital Signs: Vital Signs Temp Pulse Resp BP Pulse Ox O2 Del Method 98.1 F 84 17 121/86 H 94 Room Air 04/02/22 08:01 04/02/22 08:07 04/02/22 08:01 04/02/22 08:01 04/02/22 08:01 04/02/22 09:50 Oxygen Delivery Method Room Air Weight: 160 lb 14.999 oz Body Mass Index (BMI) 25.7 Intake & Output: Intake and Output for Last 24 Hours 03/31/22 04/01/22 04/02/22 23:59 23:59 23:59 Intake Total 960 / 960 240 / 240 Balance 960 / 960 240 / 240 Lab / Micro Data Result Diagrams: 03/28/22 05:27 04/02/22 05:56 Labs: Laboratory Results - last 24 hr 04/02/22 05:56: Sodium 138, Potassium 3.8, Chloride 107, Carbon Dioxide 25.0, Anion Gap 6, BUN 24 H, Creatinine 0.86, Estim Creat Clear Calc 61.05, Est GFR (MDRD) Af Amer 85, Est GFR (MDRD) Non-Af 70, BUN/Creatinine Ratio 27.9 H, Glucose 126 H, Calcium 10.0 Physical Exam Const alert, oriented x3 and no apparent distress Constitutional Narrative: pleasant and appropriate General Appearance: cooperative HEENT normocephalic Resp normal respiratory effort, normal air movement and clear to auscultation bilaterally Resp Narrative: No conversational dyspnea Cardio regular rate, regular rhythm, S1 normal heart sound, S2 normal heart sound, no murmurs, no rub and no gallops Cardio Narrative: No ectopy GI normal to inspection, nondistended, normoactive bowel sounds, soft to palpation and non-tender Extremity no calf tenderness General Extremity: Negative for edema Skin General Skin Exam: no breakdown Rashes: no rashes Assessment & Plan Assessment/Plan (1) Stroke/cerebrovascular accident: (2) HTN (hypertension): (3) Hypokalemia: PLAN: (4) 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 continue therapy 2. continue to monitor the BP closely with goal of BP < 130/80 3. discussed the goals for LDL, HGBA1C and BP once again. Also discussed the sx of stroke and when to call 911. 4. 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 Charges/Coding Visit Charges Inpatient E&M: 62735 Subs Hosp L2
[2022-04-02] MEDS: Acetaminophen 325 MG Tablet 650 MG PO (19:26)
[2022-04-02] MEDS: Senna/Docusate Sodium 1 Tablet 2 TABLET PO (20:48)
[2022-04-02] MEDS: Loratadine 10 MG Tablet PO (20:49)
[2022-04-02] MEDS: Metoprolol(XL)Succ 50 MG Tablet PO (20:49)
[2022-04-02] MEDS: traZODone 100 MG Tablet PO (20:49)
[2022-04-02] MEDS: Atorvastatin Calcium 40 MG Tablet PO (20:50)
[2022-04-03 01:42] VITALS: BMI 25.7
[2022-04-03] MEDS: SEMAGLUTIDE 14 MG TABLET PO ×2 (06:02→08:22)
[2022-04-03] MEDS: Enoxaparin 40 MG/0.4 ML Syringe SC (06:02)
[2022-04-03 07:29] VITALS: BP 123/84; PULSE 80; RESP 16; TEMP 36.1; O2SAT 95
[2022-04-03 08:22] VITALS: BP 123/84; PULSE 80
[2022-04-03] MEDS: Metoprolol(XL)Succ 25 MG Tablet PO (08:22)
[2022-04-03] MEDS: Clopidogrel Bisulfate 75 MG Tablet PO (08:22)
[2022-04-03] MEDS: Cholecalciferol (Vit D3) 125 MCG CAPSULE (5,000 UNITS) PO (08:23)
[2022-04-03] MEDS: Polyethylene Glycol 3350 17 GM PACKET PO (08:23)
[2022-04-03] MEDS: Pantoprazole Sodium 40 MG Tablet PO (08:23)
[2022-04-03] MEDS: Aspirin 81 MG TAB.CHEW PO (08:23)
[2022-04-03 10:02] VITALS: BMI 25.7
[2022-04-03 19:03] VITALS: BP 144/82; PULSE 63; RESP 18; TEMP 36.7; O2SAT 99
[2022-04-03 20:49] VITALS: BP 148/72; PULSE 69
[2022-04-03] MEDS: Atorvastatin Calcium 40 MG Tablet PO (20:49)
[2022-04-03] MEDS: Metoprolol(XL)Succ 50 MG Tablet PO (20:49)
[2022-04-03] MEDS: Glycerin/Hypromellose/PEG400 15 ml Bottle 1 DRP EACH EYE (20:50)
[2022-04-03] MEDS: traZODone 100 MG Tablet PO (20:50)
[2022-04-03] MEDS: Loratadine 10 MG Tablet PO (20:52)
[2022-04-03 20:56] VITALS: BMI 25.7
[2022-04-04] MEDS: Enoxaparin 40 MG/0.4 ML Syringe SC (06:05)
[2022-04-04] MEDS: Glycerin/Hypromellose/PEG400 15 ml Bottle 1 DRP EACH EYE (06:05)
[2022-04-04 08:36] VITALS: BP 120/76; PULSE 76; RESP 18; TEMP 36.6; O2SAT 97
--- NOTE | 2022-04-04 08:38 | EX.DISCHREH ---
Providers Date of Admission: 03/22/22 Primary Care Physician: Dr. 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: Status: Acute Code(s): R76.8 - Other specified abnormal immunological findings in serum Medications at Discharge Home Medications cholecalciferol (vitamin D3) 25 mcg (1,000 unit) capsule 5,000 unit PO QDAY supp 11/19/17 semaglutide 7 mg tablet (Rybelsus) 14 mg PO DAILY dm 10/10/21 aspirin 81 mg chewable tablet 81 mg PO DAILY heart 03/22/22 Triamcinolone Acetonide [Nasacort Aq Nasal [place]] 1 spray NASAL DAILY ##0 04/04/22 atorvastatin 40 mg tablet 40 mg PO QHS 30 days #30 tabs 04/04/22 clopidogrel 75 mg tablet 75 mg PO DAILY 30 days #30 tabs 04/04/22 metoprolol succinate 25 mg tablet,extended release 24 hr 25 mg PO DAILY@0800 30 days #30 tabs 04/04/22 metoprolol succinate 50 mg tablet,extended release 24 hr 50 mg PO QHS 30 days #30 tabs 04/04/22 pantoprazole 40 mg tablet,delayed release 40 mg PO DAILY 30 days #30 tabs 04/04/22 trazodone 100 mg tablet 100 mg PO 2100 30 days #30 tabs 04/04/22 Hospital Course Operations None Procedures None Summary of Care Provided Minutes Spent on Discharge: 35 Hospital Course: 66 year old female with below past medical history hospitalized for right sided stroke, left hemiparesis, admitted to for 3 hours daily rehabilitation, strengthening, prior to discharge home with . Discharge home with 04/04/2022, [facility] PT/OT. Physical Exam Const alert General Appearance: cooperative HEENT normocephalic Eyes PERRL and EOMs intact bilaterally Neck supple, no JVD and no carotid bruits Resp normal respiratory effort, normal air movement and clear to auscultation bilaterally Cardio regular rate and regular rhythm GI normal to inspection, nondistended, normoactive bowel sounds, non-tender and non-distended Extremity normal capillary refill General Extremity: Negative for edema Skin no rashes or lesions noted General Skin Exam: no breakdown Psych affect normal Appearance: appropriate Weight / BMI Weight Weight: 73 kg Body Mass Index (BMI) 25.7 ABG / Lab / Microbiology Data Result Diagrams: 03/28/22 05:27 04/02/22 05:56 Indicators for Scoring Admitted with or Primary Diagnosis of CVA/Stroke: Yes Hx of CVA/Stroke: Yes Modified Boundary Score MRS Score at time of Evaluation: 3-Moderate disability D/C Instructions Discharge Diet: No restrictions Discharge Activity: Return to Normal Activity, May Shower and Use Walker May resume sexual activity in: No Restrictions Weight Bearing Status: Weight bearing as tolerated Call your doctor if you observe: Fever of 101 or Higher, Inability to urinate, Inability to have a bowel movement, Shortness of breath, Dizziness, Fainting spells, Swelling in the ankles, Chest pain and Uncontrolled pain Additional Instructions: Discharge home with 04/04/2022, [facility] PT/OT. Meaningful Use Info Meaningful Use Diagnoses (Choose all that apply): Ischemic CVA CVA Therapy Assessed for PT,OT and/or ST?: Yes Ischemic Stroke Antithrombotic order at d/c?: Yes Dx of Atrial fib/flutter?: No Statins at discharge?: Yes Primary Dx Acute Ischemic CVA?: Yes IV tPA ordered during stay?: No Reason IV t-PA not ordered: Treatment not Indicated Discharge Plan Admission Admit Date/Time: 03/22/22 12:30 Primary Reason for Your Visit: Debility. Attending Provider: Linda Ortiz Primary Care Provider: Kenia Bella Instructions Additional Instructions / Restrictions: Discharge home with 04/04/2022, [facility] PT/OT. Discharge Orders/Prescriptions Prescriptions: New atorvastatin 40 mg Tablet 40 mg PO QHS 30 Days Qty: 30 0RF metoprolol succinate 50 mg Tablet Extended Release 24 Hr 50 mg PO QHS 30 Days Qty: 30 0RF clopidogrel 75 mg Tablet 75 mg PO DAILY 30 Days Qty: 30 0RF trazodone 100 mg Tablet 100 mg PO 2100 30 Days Qty: 30 0RF pantoprazole 40 mg Tablet,Delayed Release (Dr/Ec) 40 mg PO DAILY 30 Days Qty: 30 0RF metoprolol succinate 25 mg Tablet Extended Release 24 Hr 25 mg PO DAILY@0800 30 Days Qty: 30 0RF Triamcinolone Acetonide [Nasacort Aq Nasal [place]] 1 spray NASAL DAILY Qty: 0 0RF Continued cholecalciferol (vitamin D3) 1,000 unit capsule 5,000 unit PO QDAY Rybelsus 7 mg tablet 14 mg PO DAILY aspirin 81 mg Tablet,Chewable 81 mg PO DAILY Discontinued amlodipine [Norvasc] 5 mg tablet 5 mg PO QDAY lutein 10 MG tablet 10 mg PO DAILY losartan 25 mg Tablet 25 mg PO DAILY Zyrtec 10 mg Capsule 10 mg PO QHS atorvastatin [Lipitor] 40 mg Tablet 40 mg PO QHS pantoprazole 40 mg tablet,delayed release (DR/EC) 40 mg PO DAILY Rx Instructions: . Referrals / Follow Up: [facility] [Other] (Referral was sent to the office they will call you to make an appointment ) Shayne,Kenia, DO [Primary Care Provider] - (pt to make appt) Disposition Disposition (needs filled in before D/C Order can be placed): Home, Self Care
[2022-04-04 08:57] VITALS: PULSE 76
[2022-04-04] MEDS: Metoprolol(XL)Succ 25 MG Tablet PO (08:57)
[2022-04-04] MEDS: Aspirin 81 MG TAB.CHEW PO (08:57)
[2022-04-04] MEDS: Cholecalciferol (Vit D3) 125 MCG CAPSULE (5,000 UNITS) PO (08:59)
[2022-04-04] MEDS: Clopidogrel Bisulfate 75 MG Tablet PO (09:00)
[2022-04-04] MEDS: Polyethylene Glycol 3350 17 GM PACKET PO (09:00)
[2022-04-04] MEDS: Pantoprazole Sodium 40 MG Tablet PO (09:02)
[2022-04-04 10:00] VITALS: BP 120/76; PULSE 76; RESP 18; TEMP 36.6; O2SAT 97; BMI 25.7
--- NOTE | 2022-04-04 10:00 | NURSING ---
Patient and aware of discharge instructions and verbalized understanding.
== END 2022-04-04 10:00 | disposition home or self-care (01) | DRG 57 ==
PROVIDERS: Admitting Provider Internal Medicine; PCP Internal Medicine; Visit Provider Internal Medicine
DX: I69.354 Hemiplegia and hemiparesis following cerebral infarction affecting left non-dominant side (principal); E11.9 Type 2 diabetes mellitus without complications; E86.0 Dehydration; K52.832 Lymphocytic colitis; E87.6 Hypokalemia; E78.00 Pure hypercholesterolemia, unspecified; K21.9 Gastro-esophageal reflux disease without esophagitis; I10 Essential (primary) hypertension; I69.392 Facial weakness following cerebral infarction; I69.328 Other speech and language deficits following cerebral infarction; H15.103 Unspecified episcleritis, bilateral; Z87.891 Personal history of nicotine dependence; Z79.899 Other long term (current) drug therapy; Z79.82 Long term (current) use of aspirin; R76.8 Other specified abnormal immunological findings in serum
CPT/HCPCS: 36415; 80048; 80053; 81001; 82962; 83735; 84100; 85014; 85018; 85027; 85652; 86140; 92507; 92523; 92526; 92611; 97110; 97112; 97116; 97162; 97166; 97530; 97535; 97802; 99251; G0463

== ENCOUNTER → 2022-05-06 | Outpatient (CLI) | payer MEDICARE, OTHER, SELFPAY ==
--- NOTE | 2022-05-06 08:54 | RDU_ITS ---
Reason For Study: HTN Right Renal Artery Left Renal Artery Right renal artery ostium Left renal artery ostium 63.6/21.9 118.3/37.1 RSV/EDV. PSV/EDV. Right renal artery proximal Left renal artery proximal PSV/EDV 92.0/34.9 PSV/EDV. 76.8/27.4 . Right renal artery mid 116.1/41.5 Left renal artery mid 64.7/26.3 PSV/EDV. PSV/EDV . Right renal artery distal 94.8/32.7 Left renal artery distal 65.8/26.3 PSV/EDV. PSV/EDV. Right RAR 1.79. Left RAR 1.16. Right Renal Parenchyma Left Renal Parenchyma Upper Pole Medula 20.3/7.6 PSV/EDV. Left upper pole medulla 26.9/9.9 Right upper pole medulla EDR 0.40 . PSV/EDV . Right upper pole medulla R.I. Left upper pole medulla EDR 0.40 . 0.62 . Left upper pole medulla R.I. 0.63 . Upper Gavin Cortx 10.8/4.0 PSV/EDV. UP Cortex 14.6/6.6 PSV/EDV. Right upper pole cortex EDR 0.40 . Left upper pole cortex EDR 0.40 . Right upper pole cortex R.I. 0.63 . Left upper pole cortex R.I. 0.55 . Right lower Pole medulla 31.9/14.5 Left lower Pole medulla 34.8/12.1 PSV/EDV . PSV/EDV . Right lower pole medulla EDR 0.50 . Left lower pole medulla EDR 0.30 . Right lower pole medulla R.I. Left lower pole medulla R.I. 0.65 . 0.54 . Lower Pole Cortx 16.3/6.0 PSV/EDV. Lower Pole Cortex 16.4/6.5 PSV/EDV. Left lower pole cortex EDR 0.40 . Right lower pole cortex EDR 0.40 . Left lower pole cortex R.I. 0.64 . Right lower pole cortex R.I. 0.60 . Left Renal Hilar Right Renal Hilar LT Hilar avg 121.6/43.1 PSV/EDV . Right Hilar avg 131.3/45.5 PSV/EDV. Left hilar acceleration time 30 Right hilar acceleration time 30 m/sec. m/sec. Left Renal Dimensions Right Renal Dimensions Left kidney size 11.81 cm . Right kidney size 11.70 cm . Left cortical dimension 1.56 cm . Right cortical dimension 1.74 cm . non vascularized anechoic area in rt kidney parenchyma noted measuring 2.18cm x 2.17. Aorta Proximal abdominal aorta 2.14 x 2.12 cm . Proximal abdominal aorta peak systolic velocity is 63.9 cm/sec . Distal abdominal aorta 1.35 x 1.35 cm . Distal abdominal aorta peak systolic velocity is 66.0 cm/sec . VL/Renal Artery Duplex Ultrasound Interpretation Summary Dimensions of the intra-abdominal aorta appear normal, without evidence of aneu rysmal dilatation. Renal artery velocities are bilaterally normal. Acceleration times are normal b ilaterally. Renal- aortic ratios are also bilaterally normal. There is no evidence of hemodynamica lly significant renal artery stenosis on either side. Renovascular resistance appears to be bilateral ly normal . The right cortical dimension is increased. The left cortical dimension is increased. Kidn eys appear normal in size bilaterally. A non-vascular, anechoic structure is noted in the right kidn ey, which probably represents a renal cyst. Clinical correlation is advised. Ordering Physician: Kenia Bella Referring Physician: Kenia Bella D.O. Performed By: Ty Walton RVT
== END | disposition home or self-care (01) ==
LOC: CVS 08:52
PROVIDERS: PCP Internal Medicine; Visit Provider Internal Medicine
DX: I10 Essential (primary) hypertension (principal)
CPT/HCPCS: 93975

== ENCOUNTER → 2022-05-12 | Outpatient (CLI) | payer MEDICARE, OTHER, SELFPAY ==
--- NOTE | 2022-05-12 11:58 | NM_ITS ---
CLINICAL: 66-year-old female with history of gastroesophageal reflux disease. SEMI-SOLID PHASE 99m Tc SULFUR COLLOID GASTRIC EMPTYING STUDY COMPARISON: None available FINDINGS: The patient was administered 1.0 mCi of 99m Tc sulfur colloid mixed with oatmeal and consumed per os. Image acquisitions in the anterior-posterior projections were obtained for 60 minutes. There is prompt visualization of the stomach. There is no gastroesophageal reflux identified. First order kinetics are maintained throughout the duration of the acquisitions. The T ? linear fit was calculated to be 180.86 minutes, (Normal: 12-56 minutes). NM/Gastric Emptying Study IMPRESSION: 1. ABNORMAL 99m Tc sulfur colloid semi-solid phase (oatmeal) gastric emptying imaging examination. A. There is delayed semi-solid phase gastric emptying compared to normal controls. (Tacos et al, J Nucl Med Tech 38: 186, 2010). Electronically Signed: Rafat Corona, at 22:46 EST ,
== END | disposition home or self-care (01) ==
LOC: NM 11:57
PROVIDERS: PCP Internal Medicine; Referring Provider Internal Medicine; Visit Provider Internal Medicine
DX: K21.9 Gastro-esophageal reflux disease without esophagitis (principal)
CPT/HCPCS: 78264; A9541

== ENCOUNTER 2022-05-15 10:00 | Outpatient (RCR) | payer MEDICARE, OTHER, SELFPAY ==
--- NOTE | 2022-04-08 13:59 | HP.PTEVAL ---
Patient's Visit Information CHALINO PROTILLO is a 66 year old F referred to Physical Therapy by Dr. Linda Ortiz DO with a diagnosis of STROKE. Date of Evaluation: 04/08/22 Physical Therapist: Steven Almanzar, PT, Cert MDT, OCS - Visit Plan Frequency: 2x /Week Duration: 4 Weeks Plan: PT INTERVENTIONS HIGH LEVEL BALANCE PROGRAM ,LE STRENGTHENING ,FUNCTIONAL STRENGTHENING AND ENDURANCE PROGRAM - Subjective This 66 y/o female presents to physical therapy with CVA affecting left side. Patient had CVA Mar 20 left side paresthesia left side and balance deficits thus went to ER had MRI showed right lacunar ischemic . Patient was transferred to Rehab 4th floor on Mar 22 for ~ 13 days d/c Apr 04. Patient paresthesia getting progressively better. Patient c/o weakness left leg and some balance deficits . Patient has no falls . Patient sleeping okay. Patient has depth perception deficits and left side neglects affects ADLS's and housework tasks. Patient denies dizziness or KENNEY. Patient is able to contrate has problems with multiple tasks . CVA has affecting QOL and function with ADLS Aand housework tasks. SOCIAL: . VOCATION:retired - Objective POSTURE: WFL. GAIT: reciprocal pattern. STAIRS: alternating with rails. BALANCE : GOOD -. MMT: quads/hams 4/5,hip flexion 4/5 ,hip abd 4-/5 ,ankle 5/5. FLEXABLITY: hamstrings min tight. NEURO : denies paresthesia/tingling ,reflexes L3-4,L4-5,L5-S1 3/3 - Balance/Special Test Scores Functional Gait Assessment Score: 23 % Disability: 23.3400 CATSIB Score (Max score 120 seconds): 120 Lower Extremity Functional Score: 40 30 Second Chair Rise Test Seconds: 13 - Goals Goal 1:: I with HEP Goal Time Frame: 4-6 Weeks Goal 2:: Patient to improve functional gait assessment score by 5 points to improve function Goal Time Frame: 4-6 Weeks Goal 3:: Patient to improve 30 second sit-stand by 5 reps to improve function. Goal Time Frame: 4-6 Weeks Goal 4:: Patient to demonstrate 70% improvement with function for ADLS Goal Time Frame: 4-6 Weeks Goal 5:: Patient to normalize gait pattern community distances on uneven surfaces Goal Time Frame: 4-6 Weeks - Rehabilitation Potential Physical Therapy Diagnosis: This patient had CVA affecting left side with weakness left side ,high level balance impairs ADL's and houswork tasks thus benefit from skilled PT Rehabilitation Potential: Good - Anticipated Interventions Patient/Client Instruction: Educate patient on: Condition, Plan of Care For the Purpose of:: To decrease pain, To increase ROM, To improve muscle performance and motor function, To improve ability to perform ADL's, To increase tolerance to activity/condition/position, To improve ability of physical actions for home/community/work/leisure, To improve gait and locomotor functions, To improve endurance, To improve balance, To improve ability to perform tasks related to life management Therapeutic Exercise to Include: Strength training, Power training, Endurance training, Balance training, Coordination, Flexibilty training, Gait and locomotor training Comment: BLE QUADS/HAMS/HIP For the Purpose of:: To decrease pain, To improve muscle performance and motor function, To improve ability to perform ADL's, To increase tolerance to activity/condition/position, To improve performance and independence with ADL's, To increase flexibility/ROM, To improve endurance, To improve balance, To reduce risk of recurrence, To improve ability to perform tasks related to life management Thank you for the opportunity to evaluate your patient. For Medicare and Medicare HMO plans, please review the plan of care and approve it. It will need to be FAXED BACK to us at [phone] for Medicare purposes. For Medicare only, by signing this I certify the plan of care. Please let me know if there are questions or concerns regarding this plan of care. Physician Signature: Date:
--- NOTE | 2022-04-09 08:35 | HP.OTEVAL ---
Patient's Visit Information CHALINO PORTILLO is a 66 year old F, referred to Occupational Therapy by Dr. Linda Ortiz DO, with a diagnosis of . Date of Evaluation: 04/09/22 Occupational Therapist: Dayan Slade - Subjective arrived for general OT evaluation s/p CVA 03/20/22. Discharged from inpatient rehab Thursday04/04/22. Reports concerns are mostly L sided weakness, decreased balance, visual perceptual concerns, and L hand manipulation. Agreeable to therapy 2x/week for 8 weeks to start. 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 Able to ambulate to/from rehab dept with SBA. Able to participate in all task items this date. - ROM Shoulder: WNL Elbow: WNL Forearm: WNL Wrist: WNL - Strength Shoulder: L 4/5 for flexion/abduction Heel Cover Softener: L president [employer]o [employer] 30; R president [employer] 50 Lateral Pinch: L 6; R 8 Tripod Pinch: L 6, R 6 Tip-to-Tip Pinch: L 4, R 5 - Edema Other: no swelling noted - Sensation Sensation Comments: decreased sensation in left side of face, L hand - Visual/Perceptual Skills Comments: wears glasses at baseline. reports some difficulty with visual perception and depth perception - Cognitive Skills Follows Directions: Yes Cognitive Comments: cognitive skills intact - Attention Attention: Normal - Nine Hole Peg Right: 28.9 sec Left: 72 sec - Quick DASH-Disab of Arm,Shoulder& Hand Quick DASH Score: 29.5450 - Goals Goal:: Patient will demonstrate improved L hand dexterity evidenced by improvement on the 9 hole peg test by 20 seconds by discharge. Goal:: Patient will demonstrate improved bimanual skills for ADL's evidenced by ability to open a variety of containers, jars, etc independently by discharge. Goal:: Patient will improve left sided spatial awareness evidenced by reported and observed bumping into objects/hauser less than 1x/week by discharge. Goal:: Patient will demonstrate improved overall strength evidenced by completion of HEP and improvement in shoulder strength to 5/5 MMT. - Rehabilitation Rehabilitation Potential: Good - Anticipated Interventions Strengthening, Fine Motor Coord/Eliud, Visual/Perceptual Skills, ADL Training - Visit Plan Frequency: 2x /Week Duration: 2 Months General Plan: work on improving L side function, some L spatial awareness and visual perception, and improving L hand fine motor manipulation skills TEXT: Thank you for the opportunity to evaluate your patient. For Medicare and Medicare HMO plans, please review the plan of care and approve it. It will need to be FAXED BACK to us at [phone] for Medicare purposes. Please let me know if there are questions or concerns regarding this plan of care. Physician Signature: Date:
--- NOTE | 2022-05-08 14:24 | HP.PTDCSUM ---
It has been my pleasure to treat CHALINO PORTILLO referred by Dr. Kenia Bella DO, with the diagnosis of STROKE for a total of 7 visit(s). Discharge Date: Please see the following information for a summary of their discharge status. Subjective: Doing well ..seeing neurologist. deb for d/c % Improvement: 90 Objective/Function: POSTURE: mild forward posture. GAIT: reciprocal pattern. STAIRS: alternating with rails. MMT: 4/5 QUADS/HAMS/HIP/ANKLE Goal 1:: I with HEP Goal Progress: Goal Met Goal 2:: Patient to improve functional gait assessment score by 5 points to improve function Goal Progress: Goal Met Goal 3:: Patient to improve 30 second sit-stand by 5 reps to improve function. Goal Progress: Goal Met Goal 4:: Patient to demonstrate 70% improvement with function for ADLS Goal Progress: Goal Met Goal 5:: Patient to normalize gait pattern community distances on uneven surfaces Goal Progress: Goal Met Plan: D/C If there are questions or concerns regarding this patient's physical therapy, please feel free to call me at [phone]. Thank you for the referral of this patient. Sincerely, Steven Almanzar, PT, Cert MDT, OCS Balance/Gait/Functional tests - Balance/Special Test Scores Functional Gait Assessment Score: 30 % Disability: 0 CATSIB Score (Max score 120 seconds): 120 Lower Extremity Functional Score: 69 30 Second Chair Rise Test Seconds: 18
--- NOTE | 2022-05-15 10:23 | HP.OTDCSUM ---
It has been my pleasure to treat CHALINO PORTILLO under orders from Dr. Kenia Bella DO, for the diagnosis of CVA for a total of 12 visit(s). Please see the following information for a summary of their discharge status. % Improvement: 100 Objective/Function: Eval: L Research Coordinator 30 current 40#. Eval: Lateral Pinch: L 6 current 6#. Eval: Tripod Pinch: L 6 current 8#. Eval: Tip-to-Tip Pinch: L 4 current 4#. left 9 hole peg test 33.41 sec a decrease from 72 sec. shoulder MMT grossly throughout 4+/5. pt demo gains in her functional strength and coordination- pt has returned to performing her ADLS and IADLs at [facility]. pt agrees to cont. with her HEP and is transitioning to a health and wellness program. Patient Goals: Regain Strength, Improve Fine Motor Skills, Use Hand/Wrist/Arm Normally Again, Be More Independent in ADLS, Improve Visual/Perceptual Skills, Resume Former Household Responsibilities (Cooking,Cleaning,Yard, etc.) Goal:: Patient will demonstrate improved L hand dexterity evidenced by improvement on the 9 hole peg test by 20 seconds by discharge. Goal:: Patient will demonstrate improved bimanual skills for ADL's evidenced by ability to open a variety of containers, jars, etc independently by discharge. Goal:: Patient will improve left sided spatial awareness evidenced by reported and observed bumping into objects/hauser less than 1x/week by discharge. Goal:: Patient will demonstrate improved overall strength evidenced by completion of HEP and improvement in shoulder strength to 5/5 MMT. Plan: D/C Discharge Comments: pt was seen 12 OT sessions- pt met goals and will continue with a [facility] and joint health and wellness center - If there are questions or concerns regarding this patient's occupational therapy, please fell free to call me at [phone]. Thank you for the referral of this patient. Sincerely, Isis Florian, OTR/L, CHT
== END 2022-05-15 12:17 | disposition home or self-care (01) ==
LOC: OT 10:00
PROVIDERS: PCP Internal Medicine; Referring Provider Internal Medicine; Visit Provider Internal Medicine
DX: I63.9 Cerebral infarction, unspecified (principal)
CPT/HCPCS: 97110; 97112; 97162; 97166; 97530

== ENCOUNTER → 2022-08-25 | Outpatient (CLI) | payer MEDICARE, OTHER, SELFPAY ==
--- NOTE | 2022-08-25 13:24 | BI_ITS ---
MAMMOGRAPHY - BILATERAL SCREENING REASON FOR EXAM: Female, 66 years old. Routine annual screening examination. PERTINENT HISTORY: Grandmother with breast cancer. Remote right stereotactic breast biopsy. TECHNIQUE: Digital bilateral breast kalie (3D mammographic acquisition) in the CC and MLO projections. 2-D mediolateral oblique (MLO) and craniocaudad (CC) views of both breasts were obtained. CAD: Full Field Digital Mammography with Computer Added Detection was performed. COMPARISON: Comparison is made with prior study dated January 24, 2021 and January 21, 2021. FINDINGS: Breast Composition: There are scattered areas of fibroglandular density. There are no dominant masses or suspicious calcifications. A tissue clip marker is seen in the superior central portion of the right breast. No other significant abnormalities are identified. There has been no significant change since the prior study. BI/SCRN MAMM (CAD)W/KALIE BILAT IMPRESSION: Stable bilateral screening mammogram. Yearly follow-up mammogram recommended. (A) ASSESSMENT CATEGORY: BIRADS Category 2: Benign. A letter regarding these results will be sent to the patient by the facility within 30 days. Approximately 10% of breast cancers are not detected by mammography. A normal mammogram should not delay biopsy of a clinically suspicious abnormality. [id number] Electronically Signed: Parker Rojas MD at 14:35 EDT ,
== END | disposition home or self-care (01) ==
LOC: OPBI 13:23
PROVIDERS: PCP Internal Medicine; Referring Provider Internal Medicine; Visit Provider Internal Medicine
DX: Z12.31 Encounter for screening mammogram for malignant neoplasm of breast (principal)
CPT/HCPCS: 77063; 77067

== ENCOUNTER 2022-09-11 14:30 | Emergency (ER) | payer MEDICARE, OTHER, SELFPAY ==
[2022-09-11 14:31] VITALS: BP 148/91; PULSE 66; RESP 18; TEMP 35.7; O2SAT 100; BMI 24.4
--- NOTE | 2022-09-11 15:09 | ED.VIS.GI ---
HPI HPI - GI History of Present Illness Chief Complaint: GI Bleed Informant: patient Narrative Narrative: Patient has a history of microscopic colitis and follows with Dr. Davis. For the past 5 days she has had mild loose diarrhea, she had 2 bouts the first day and 1 bout each of the following days. Today she had a moderate amount of bright red blood per rectum. This occurred once. She has had no bleeding since but she felt lightheaded earlier and has felt malaise for the last couple days and was concerned. She takes baby aspirin no anticoagulants. She denies any abdominal pain, just some discomfort across her low back for the past several days since she has been having a diarrhea. No fevers or chills. She states with her colitis she has never had bleeding in the past. She is taking no medications for colitis right now, she states it is diet controlled. [facility] Medical History (Updated 09/11/22 @ 16:[address] Dada Swanson MD) Alcohol use Anxiety Arthritis Constipation Depression Diabetes Diarrhea Elevated liver enzymes Elevated TSH Former smoker Heartburn History of edema History of stress test HTN (hypertension) Hx of diarrhea hypercholesterolemia Hypokalemia Injury of head and neck Kidney stones Microscopic colitis Renal calculus, left Restless legs Right ureteral calculus Stroke/cerebrovascular accident Tubular adenoma of colon Wears glasses Home Medications cholecalciferol (vitamin D3) 25 mcg (1,000 unit) capsule 5,000 unit PO QDAY supp 11/19/17 [History Last Taken Unknown] aspirin 81 mg chewable tablet 81 mg PO DAILY heart 03/22/22 [History Last Taken Unknown] Triamcinolone Acetonide [Nasacort Aq Nasal [place]] 1 spray NASAL DAILY ##0 04/04/22 [Rx Last Taken Unknown] amlodipine 5 mg tablet 5 mg PO DAILY 09/11/22 [History Last Taken Unknown] cetirizine 10 mg capsule (Zyrtec) 10 mg PO DAILY 09/11/22 [History Last Taken Unknown] dicyclomine 10 mg capsule 20 mg PO TIDAC 3 days #18 CAPSULES 09/11/22 [Rx Last Taken Unknown] losartan 25 mg tablet 25 mg PO DAILY 09/11/22 [History Last Taken Unknown] lutein 10 mg tablet 10 mg PO DAILY 09/11/22 [History Last Taken Unknown] metoprolol succinate 25 mg tablet,extended release 24 hr 25 mg PO BID 09/11/22 [History Last Taken Unknown] semaglutide 14 mg tablet (Rybelsus) 14 mg PO DAILY 09/11/22 [History Last Taken Unknown] Allergy/AdvReac Type Severity Reaction Status Date / Time biotin Allergy Rash Verified 04/07/22 09:55 lisinopril AdvReac Other Verified 04/07/22 09:55 Family History (Reviewed 04/07/22 @ 12:37 by Suzy Clarke LEADERSHIP DEVELOPMENT CONSULTANT, LEADERSHIP DEVELOPMENT CONSULTANT-C) Father Diabetes Heart disease Hypertension Thyroid disorder Mother Diabetes Hypertension Kidney disease Heart disease Brother Diabetes Sister Diabetes Thyroid disorder Surgical History H/O bilateral oophorectomy H/O: hysterectomy History of fusion of cervical spine History of hemilaminectomy Hx of colonoscopy Hx of cystoscopy S/P bilateral foot surgery S/P laparoscopic cholecystectomy (~11/20/17) Social History Smoking Status: Former smoker alcohol intake: current alcohol intake frequency: holidays/special occasions only ROS ROS ED Constitutional Constitutional ED: Reports malaise; Denies chills or fever(s) Eyes Eyes: Denies change in vision or diplopia ENT ENT ED: Denies rhinorrhea or sore throat Cardiovascular Cardiovascular: Reports lightheadedness; Denies chest pain, palpitations or syncope Respiratory/Chest Respiratory/Chest: Denies cough or dyspnea Gastrointestinal Gastrointestinal: Reports diarrhea and hematochezia; Denies abdominal pain, melena, nausea or vomiting Genitourinary Genitourinary ED: Denies dysuria, hematuria or urinary frequency Musculoskeletal Musculoskeletal: Reports back pain; Denies neck pain Integumentary Denies abscess or rash Neurologic Neurologic: Denies headache(s), paresthesias or weakness Psychiatric Psychiatric: Denies anxiety or suicidal thoughts EXAM Physical Exam Const Vital Signs: 09/11/22 14:31 Temperature 96.2 F L Temperature Source Temporal Pulse Rate 66 Respiratory Rate 18 Blood Pressure 148/91 H Blood Pressure Mean 110 Pulse Ox 100 Oxygen Delivery Method Room Air Positive well nourished and well developed General Appearance ED: well developed and NAD HEENT Reports moist mucous membranes normocephalic and atraumatic Eyes PERRL and EOMs intact bilaterally Neck full ROM and supple Resp normal respiratory effort and clear to auscultation bilaterally Cardio regular rate, regular rhythm and no murmurs GI non-tender and non-distended Auscultation: normoactive bowel sounds Palpation: soft Back/Spine no CVA tenderness General Back: other FROM Extremity normal to inspection General Extremety ED: Negative for edema, pulses abnormal or tenderness General Extremity: Negative for edema or pulses abnormal Neuro oriented x3, CN's II-XII intact bilaterally and no sensory deficits noted Sensorium / Orientation: awake and alert Motor Exam: strength 5/5 throughout Skin no rashes or lesions noted and no wounds MDM MDM MDM Narrative Medical decision making narrative: Obtain some labs, her hemoglobin 14.4 very reassuring, she has mild prerenal azotemia with a BUN of 21 but this is her baseline. The rest of her labs are unremarkable including liver enzymes. She went to the bathroom and did not have any more bloody stool. She states she has been having some mild lower abdominal discomfort but she denies it being painful. I suspect this is bowel spasm related to her diarrhea. Patient discussed with Dr. Davis who knows her; he agrees with her that this is not likely related to her microscopic colitis, and more likely is a transient ischemic colitis due to viral enteritis. He recommends dicyclomine 3 times daily for the next 3 days and close a patient follow-up if her symptoms persist, we discussed reasons to return, but she is not anemic does not need any blood right now nor admission. She is comfortable with that plan. History & Record Review Additional record(s) reviewed:: Prior labs Lab Data Attestation: I reviewed the patient's lab results. Labs: Laboratory Results - last 24 hr 09/11/22 09/11/22 15:05 15:05 WBC 7.4 RBC 5.02 Hgb 14.4 Hct 43.4 MCV 86.5 MCH 28.7 MCHC 33.2 RDW Std Deviation 42.5 RDW Coeff of Amelie 13.4 Plt Count 302 MPV 9.0 Immature Gran % (Auto) 0.300 Neut % (Auto) 39.9 L Lymph % (Auto) 48.4 H Glasscock % (Auto) 6.5 Eos % (Auto) 3.8 Baso % (Auto) 1.1 H Absolute Neuts (auto) 3.0 Absolute Lymphs (auto) 3.59 Nucleated RBC % 0 Sodium 137 Potassium 3.6 Chloride 105 Carbon Dioxide 24.0 Anion Gap 8 BUN 21 H Creatinine 0.81 Estim Creat Clear Calc 64.82 Est GFR (MDRD) Af Amer 91 Est GFR (MDRD) Non-Af 75 BUN/Creatinine Ratio 26.0 H Glucose 86 Calcium 9.2 Total Bilirubin 0.60 AST 20 ALT 30 Alkaline Phosphatase 63 Total Protein 7.7 Albumin 4.0 Globulin 3.7 Albumin/Globulin Ratio 1.1 Management Discussion w/another healthcare provider: [facility] (Dr. Davis, GI) Discharge Plan Triage Chief Complaint: GI Bleed ED Provider: Dada Swanson Dx/Rx/DC Orders Clinical Impression: Acute ischemic colitis, Acute diarrhea Instructions: Ischemic Colitis Prescriptions: New dicyclomine 10 mg capsule 20 mg PO TIDAC 3 Days Qty: 18 0RF No Action cholecalciferol (vitamin D3) 1,000 unit capsule 5,000 unit PO QDAY aspirin 81 mg Tablet,Chewable 81 mg PO DAILY Triamcinolone Acetonide [Nasacort Aq Nasal [place]] 1 spray NASAL DAILY Qty: 0 0RF amlodipine 5 mg tablet 5 mg PO DAILY Label Comments: TAKE ONE TABLET BY MOUTH EVERY DAY losartan 25 mg tablet 25 mg PO DAILY Label Comments: TAKE ONE TABLET BY MOUTH EVERY DAY lutein 10 mg Tablet 10 mg PO DAILY Rx Instructions: give with meal/snack Zyrtec 10 mg Capsule 10 mg PO DAILY Rybelsus 14 mg tablet 14 mg PO DAILY Label Comments: TAKE ONE TABLET BY MOUTH EVERY DAY metoprolol succinate 25 mg tablet extended release 24 hr 25 mg PO BID Primary Care Provider: Kenia Bella Referrals: Kenia Bella DO [Primary Care Provider] - Juan Manuel Davis DO [Med Staff - Active Staff] - 3-5 Days if not improving Disposition Disposition: Home, Self Care
[2022-09-11 15:20] LABS: Absolute Lymphocyte Count 3.59 X10^3/uL (0.83-4.51); Basophil# 0.08 X10^3/uL; Basophil% 1.1 % (0-1); Eosinophil# 0.28 X10^3/uL; Eosinophils% 3.8 % (0-5); Hematocrit 43.4 % (37-47); Hemoglobin 14.4 g/dL (12.0-15.0); Lymphocyte # 3.59 X10^3/ul (0.83-4.51); Lymphocyte % 48.4 % (19-41); Mean Corp Hgb Conc 33.2 g/dL (32-36); Mean Corpuscular Hgb 28.7 pg (27.0-32.0); Mean Corpuscular Volume 86.5 fL (81-99); Monocyte# 0.48 X10^3/uL; Monocyte% 6.5 % (0-10); NRBC Flagged by Analyzer 0 % (0-5); Neutrophil # 2.96 X10^3/uL (2.7-7.7); Neutrophil % 39.9 % (47-70); Platelet Count 302 K/mm3 (150-450); RBC Distribution Width CV 13.4 % (11.6-14.6); RBC Distribution Width SD 42.5 fl (35.1-43.9); Red Blood Count 5.02 M/mm3 (4.2-5.4); White Blood Count 7.4 K/mm3 (4.4-11.0)
[2022-09-11 15:39] LABS: ALB/GLOB Ratio 1.1 RATIO (0.9-2.4); AST(SGOT) 20 U/L (15-37); Alanine Aminotransfer ALT/SGPT 30 U/L (13-56); Alkaline Phosphatase 63 U/L (45-117); Anion Gap 8 (5-15); BUN 21 mg/dL (7-18); Calcium,Total 9.2 mg/dL (8.5-10.1); Chloride 105 mmol/L (98-107); Creatinine, Serum 0.81 mg/dL (0.55-1.02); EST Glomerular Filtration Rate 75 mL/min (>60); Est Glom Filt Rate - Afr Amer 91 mL/min (>60); Estimated Creatinine Clearance 64.82 ml/min; Globulin 3.7 g/dL (2.2-4.2); Glucose 86 mg/dL (74-106); Potassium 3.6 mmol/L (3.5-5.1); Protein, Total 7.7 g/dL (6.4-8.2); Sodium Level 137 mmol/L (136-145)
[2022-09-11] MEDS: Dicyclomine 10 MG Capsule 20 MG PO (16:52)
[2022-09-11 16:53] VITALS: PULSE 63; RESP 16; O2SAT 100
== END 2022-09-11 16:58 | disposition home or self-care (01) ==
PROVIDERS: Emergency Provider Emergency Medicine; PCP Internal Medicine; Visit Provider Emergency Medicine
DX: K55.039 Acute (reversible) ischemia of large intestine, extent unspecified (principal); E11.9 Type 2 diabetes mellitus without complications; Z79.899 Other long term (current) drug therapy; Z87.891 Personal history of nicotine dependence; E78.00 Pure hypercholesterolemia, unspecified; I10 Essential (primary) hypertension; Z87.19 Personal history of other diseases of the digestive system
CPT/HCPCS: 80053; 85025; 96360; 99283; J7040; A4216

== ENCOUNTER → 2023-11-30 | Outpatient (CLI) | payer MEDICARE, OTHER, SELFPAY ==
--- NOTE | 2023-11-30 09:58 | BI_ITS ---
MAMMOGRAPHY - BILATERAL SCREENING REASON FOR EXAM: Female, 67 years old. Routine annual screening examination. PERTINENT HISTORY: Grandmother with breast cancer. Remote right stereotactic breast biopsy. TECHNIQUE: Digital bilateral breast kalie (3D mammographic acquisition) in the CC and MLO projections. 2-D mediolateral oblique (MLO) and craniocaudad (CC) views of both breasts were obtained. CAD: Full Field Digital Mammography with Computer Added Detection was performed. COMPARISON: Comparison is made with prior study of August 25, 2022 and January 24, 2021. FINDINGS: Breast Composition: There are scattered areas of fibroglandular density. There are no dominant masses or suspicious calcifications. Stable small bilateral fat containing axillary lymph nodes. A tissue clip marker is once again seen in the superior central portion of the right breast. No other significant abnormalities are identified. There has been no significant change since the prior study. BI/SCRN MAMM (CAD)W/KALIE BILAT IMPRESSION: Stable bilateral screening mammogram. Yearly follow-up mammogram recommended. (A) ASSESSMENT CATEGORY: BIRADS Category 2: Benign. A letter regarding these results will be sent to the patient by the facility within 30 days. Approximately 10% of breast cancers are not detected by mammography. A normal mammogram should not delay biopsy of a clinically suspicious abnormality. [id number] Electronically Signed: Parker Rojas MD at 11:17 EDT ,
== END | disposition home or self-care (01) ==
LOC: OPBI 09:58
PROVIDERS: PCP Internal Medicine; Referring Provider Internal Medicine; Visit Provider Internal Medicine
DX: Z12.31 Encounter for screening mammogram for malignant neoplasm of breast (principal)
CPT/HCPCS: 77063; 77067

== ENCOUNTER → 2024-01-20 | Outpatient (CLI) | payer MEDICARE, OTHER, SELFPAY ==
--- NOTE | 2024-01-20 13:52 | BD_ITS ---
STUDY: DUAL ENERGY X-RAY ABSORPTIOMETRY / DXA REASON FOR EXAM: Female, 68 years old. [id number] TECHNIQUE: Bone Mineral Density (BMD) measurements of lumbar spine and bilateral hips were obtained. COMPARISON: Comparison is made with prior study dated November 07, 2021. FINDINGS: Lumbar Spine (L1-L4): g/cm2 (0.842) / T-score (-1.9) / Z-score (0.0) Findings are suggestive of osteopenia with a moderate fracture risk. Left Femur Total: g/cm2 (0.777) / T-score (-1.4) / Z-score (0.0) Left Femoral Neck: g/cm2 (0.655) / T-score (-1.7) / Z-score (-0.1) Right Femur Total: g/cm2 (0.788) / T-score (-1.3) / Z-score (0.1) Right Femoral Neck: g/cm2 (0.644) / T-score (-1.8) / Z-score (-0.2) The T-Scores on the most recent prior examination were: Lumbar Spine (L1-L4): There has been improvement of bone density since the previous examination. Left Femur Total: which represents a worsening of 3.3%. Right Femur Total: which represents a worsening of 3%. BD/Dexa Bone Density Study IMPRESSION: The patient is considered osteopenic as outlined below according to World [place] Organization (WHO) criteria with a moderate fracture risk. There has been worsening of bone density since the previous examination. Reference Information: The T-score is the number of standard deviations above or below the standard which is normal for young adults at their peak bone mineral density. The World Health Organization (WHO) interprets the T-scores as follows: Above -1 Normal bone density Between -1 and -2.5 Osteopenia Equal to / or below -2.5 Osteoporosis As a practical clinical guideline, osteopenia may be graded as follows: Mild -1 through -1.5 Moderate -1.6 through -2.0 Severe -2.1 through -2.4 The Z-score is the number of standard deviations above or below age-matched controls. A Z-score of less than -1.5 would be considered abnormal. References: 1. NIH Osteoporosis and Related Bone Diseases www osteo.org 2. International Society for Clinical Densitometry www iscd.org 3. National Osteoporosis Foundation www nof.org Electronically Signed: Parker Rojas MD at 15:26 EDT ,
== END | disposition home or self-care (01) ==
LOC: OPBD 13:32
PROVIDERS: PCP Internal Medicine; Referring Provider Internal Medicine; Visit Provider Internal Medicine
DX: Z78.0 Asymptomatic menopausal state (principal)
CPT/HCPCS: 77080

== ENCOUNTER → 2024-05-03 | Outpatient (CLI) | payer MEDICARE, OTHER, SELFPAY ==
--- NOTE | 2024-05-03 16:53 | MRI_ITS ---
EXAM: MR HEAD WITHOUT AND WITH INTRAVENOUS CONTRAST CLINICAL INDICATION: Acute headache TECHNIQUE: Multiplanar and multisequence MR images of the brain were obtained without and with intravenous contrast. CONTRAST: 15CC CLARISCAN COMPARISON: None or none provided. FINDINGS: BRAIN AND EXTRA-AXIAL SPACES: Mild diffuse high signal intensity in the deep periventricular white matter around the lateral ventricles on T2 inversion recovery images, and high signal intensity surrounding a small presumed chronic lacunar infarct in the deep right periventricular white matter extending to the posterior limb of the right internal capsule. Additional faintly hyperintense scattered subcortical white matter lesions on T2 inversion recovery images. No restricted diffusion to suggest acute CVA. Minimal diffuse cerebral volume loss. No suspicious enhancement. Major dural venous sinuses and deep veins appear intact. No intra- or extra-axial hemorrhage. No intracranial mass or mass effect. Posterior fossa structures are unremarkable. No hydrocephalus. Basal cisterns are patent. SELLA: Unremarkable. Normal sella turcica, pituitary gland, infundibular stalk, optic chiasm and hypothalamus. AUDITORY SYSTEM: Unremarkable. The internal auditory canals are patent. BONES/JOINTS: Unremarkable. No discrete lytic or blastic abnormalities. SINUSES: Unremarkable as visualized. Clear. MASTOID AIR CELLS: Unremarkable as visualized. Clear. ORBITS: Unremarkable as visualized. Both globes, extraocular muscles, optic nerves and retrobulbar fat appear unremarkable. VASCULATURE: Unremarkable as visualized. Normal flow voids in the major intracranial circulation. MRI/Brain W/WO Contrast IMPRESSION: 1. No acute CVA or other specific acute intracranial abnormality. 2. Mild chronic periventricular and nonspecific small scattered subcortical white matter changes. Chronic right lacunar infarct. Electronically Signed: Yoselin Hathaway MD at 19:40 EST ,
== END | disposition home or self-care (01) ==
LOC: MRI 16:51
PROVIDERS: PCP Internal Medicine; Referring Provider Internal Medicine; Visit Provider Internal Medicine
DX: R51.9 Headache, unspecified (principal)
CPT/HCPCS: 70553; A9575

== ENCOUNTER → 2024-05-07 | Outpatient (CLI) | payer MEDICARE, OTHER, SELFPAY ==
--- NOTE | 2024-05-07 09:35 | MRI_ITS ---
STUDY: MRA OF THE HEAD WITHOUT CONTRAST REASON FOR EXAM: Female, 68 years old. acute headache x 1 week TECHNIQUE: 3-D hyml-[id number] (TOF) imaging was performed with MIPs. The study was performed unenhanced. COMPARISON: MRI of the brain dated May 03, 2024 FINDINGS: Normal bilateral petrous carotid arteries. There is atheromatous plaque formation of the right cavernous carotid artery, with a mild stenosis (less than 50%). There is atheromatous plaque formation of the left cavernous carotid artery, with a mild stenosis (less than 50%). Normal right A1 segments of the anterior cerebral artery. Normal left A1 segments of the anterior cerebral artery. Normal intact anterior communicating artery (ACOM). Normal bilateral A2 segments of the anterior cerebral arteries. Normal right M1 and M2 segments of the middle cerebral arteries, with a normal M1 bifurcation. Normal left M1 and M2 segments of the middle cerebral arteries, with a normal M1 bifurcation. Normal right posterior communicating artery (PCOM). There is non-visualization of the left posterior communicating artery (PCOM). Normal bilateral vertebral arteries. There is tortuosity with elongation of the basilar artery. The visualized bilateral superior cerebellar (SCA) arteries are normal. Normal bilateral P1, P2 and visualized P3 segments of the posterior cerebral arteries. There is no demonstrated aneurysm of the [place]. There is no major vessel occlusion or hemodynamically significant stenosis. MRI/MRA Head ONLY without Contrast IMPRESSION: 1. There is no demonstrated aneurysm of the [place]. There is no major vessel occlusion or hemodynamically significant stenosis. Electronically Signed: Wilbert Hernandez MD at 11:23 EST ,
== END | disposition home or self-care (01) ==
LOC: MRI 09:34
PROVIDERS: PCP Internal Medicine; Referring Provider Internal Medicine; Visit Provider Internal Medicine
DX: R51.9 Headache, unspecified (principal)

== ENCOUNTER → 2024-12-02 | Outpatient (CLI) | payer MEDICARE, OTHER, SELFPAY ==
--- NOTE | 2024-12-02 12:23 | BI_ITS ---
EXAM: SCRN MAMM (CAD)W/KALIE BILAT DATE: 12/02/2024 CLINICAL HISTORY: F, Age 68 y/o , SCREENING TECHNIQUE: SCRN MAMM (CAD)W/KALIE BILAT COMPARISON: Prior exam(s) dated 11/30/2023, 08/26/2019, 01/21/2021. FINDINGS: TISSUE DENSITY: There are scattered areas of fibroglandular density. Bilateral Breast Mammographic Findings: There is an asymmetry in the lateral right breast at middle depth visualized on the CC view. No significant masses, calcifications or other abnormalities are identified in the left breast. BI/SCRN MAMM (CAD)W/KALIE BILAT IMPRESSION: The asymmetry in the lateral right breast at middle depth requires further eval uation. Recommend diagnostic mammogram and ultrasound of the right breast. OVERALL FINAL ASSESSMENT BI-RADS 0: INCOMPLETE - NEED ADDITIONAL IMAGING EVALUATION. RECOMMENDATION: Additional Views obtained/call backs A letter with findings and recommendations will be mailed to the patient. Reading Location: [id number]
== END | disposition home or self-care (01) ==
LOC: OPBI 12:21
PROVIDERS: PCP Internal Medicine; Referring Provider Internal Medicine; Visit Provider Internal Medicine
DX: Z12.31 Encounter for screening mammogram for malignant neoplasm of breast (principal)
CPT/HCPCS: 77063; 77067

== ENCOUNTER → 2024-12-08 | Outpatient (CLI) | payer MEDICARE, OTHER, SELFPAY ==
--- NOTE | 2024-12-08 12:47 | BI_ITS ---
EXAM: DIAG MAMM W/CAD, UNILAT 12/08/2024 CLINICAL HISTORY: F, Age 68 y/o , ABN MAMM TECHNIQUE: DIAG MAMM W/CAD, UNILAT.. Compression spot views of the right breast were obtained. COMPARISON: Prior exam(s) dated December 02, 2024.. FINDINGS: TISSUE DENSITY: There are scattered areas of fibroglandular density. Bilateral Breast Mammographic Findings: No significant masses, calcifications or other abnormalities are identified. A tissue clip marker is seen within a tiny nodule from prior biopsy. There has been no change. No suspicious masses, areas of developing architectural distortion, or suspicious calcifications. There has been no significant interval change. BI/DIAG MAMM W/CAD, UNILAT IMPRESSION: Stable examination. OVERALL FINAL ASSESSMENT BI-RADS 2: BENIGN RECOMMENDATION: Routine annual follow-up in 1 Year A letter with findings and recommendations will be mailed to the patient. Reading Location: [id number]
== END | disposition home or self-care (01) ==
LOC: OPBI 12:53
PROVIDERS: PCP Internal Medicine; Referring Provider Internal Medicine; Visit Provider Internal Medicine
DX: R92.8 Other abnormal and inconclusive findings on diagnostic imaging of breast (principal)
CPT/HCPCS: 77061; 77065; G0279

== ENCOUNTER 2025-01-10 11:00 | Outpatient (RCR) | payer MEDICARE, OTHER, SELFPAY ==
--- NOTE | 2024-08-04 13:47 | HP.PTEVAL_ITS ---
Patient's Visit Information Visit Information Visit Information: CAT PORTILLO is a 68 year old F referred to Physical Therapy by AGNES WEINSTEIN with a diagnosis of Pelvic floor dysfunction M62.89. Date of Evaluation: 08/02/24 Physical Therapist: Ankita Baird Visit Plan Frequency: 1x/Week Duration: 2 Months Plan: Continue 1 x week. Continue pelvic floor work to address mild, moderate pelvic floor tightness. Add week 2 next visit. Address low back pain. Subjective Subjective: Stress incontinence started after having 2 kids 35 years ago. Coug brandyn or jumping 3 years ago the problem got worse. 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 She had neck surgery. 2019. Discectomy C5-C6. Hemilaminectomy L5 February 2020. She has degenerative disc disease. 2021 she had a stroke. She did well after the surgeries. She thinks this problem worsened as she was not very active. Collapse of pelvic floor. Rectocele started beginning of this year. Incontinence getting worse. Overactive bladder. Urodynamics test abnormal. Full Hysterectomy in late . Vaginal prolapse, rectocele, bladder prolapse. Bulge that she can feel but she doesn't have to manipulate it back up. She used to have to manipulate it to have a bowel movements. Bowel movements every other day with Miralax. Bidet. Still having leaking. She wears a pad for leakage. She goes thru 2 pads a day. Occasional bowel leakage and smearing and sometimes after the bowel movement. Sometimes trouble holding back gas. No pain with intercourse. Low back pain. Intermittent pain with bending, sweeping, working outside. No leg symptoms. Mid back pain as well. She works out at a gym for exercise. She walks on a treadmill with 1% incline. 3-4 pound free weights. She notices increased time on her feet she can feel more bulgy. Exercise doesn't make it worse. She wants to address her leaking. She saw colorectal surgeon. September 13 she is scheduled for surgery. Going to use mesh. Some kegels intermittently. Latonya Camara is the urogynecologist. Pain Low back: Pain Intensity (Out of 10): 0 Comment: 8/10 at worst Objective Objective: Incontinence impact questionnaire -6 Urogenital distress inventory- 18 [place]cock 2/4/3/3 Moderate pelvic floor tightness bilaterally layers 2-3 especially Rectocele 2, Cystocele 1 Goals Goal 1:: Cat will be able to more comfortably have bowel movements with 50% less need for splinting. Goal Time Frame: 6-8 Weeks Goal 2:: Cat will be able to cough or sneeze without leaking. Goal Time Frame: 6-8 Weeks Goal 3:: Cat will have 2/10 low back pain with light housework activities that require bending and lifting. Goal Time Frame: 6-8 Weeks Rehabilitation Potential Physical Therapy Diagnosis: Stress incontinence, low back pain, rectocele Rehabilitation Potential: Good Anticipated Interventions Patient/Client Instruction: Educate patient on: Condition and Plan of Care For the Purpose of:: To decrease pain Therapeutic Exercise to Include: Strength training and Coordination For the Purpose of:: To decrease pain Manual Therapy Techniques to Include: Trigger point massage, Manipulation and Soft tissue mobilization For the Purpose of:: To decrease pain Text: Thank you for the opportunity to evaluate your patient. For Medicare and Medicare HMO plans, please review the plan of care and approve it. It will need to be FAXED BACK to us at [phone] for Medicare purposes. For Medicare only, by signing this I certify the plan of care. Please let me know if there are questions or concerns regarding this plan of care. Physician Signature: Date:
--- NOTE | 2024-09-20 17:10 | HP.PTREVAL ---
Re-Evaluation Intro: AGNES WEINSTEIN, It has been my pleasure to treat CAT PORTILLO over the last 8 visits for Pelvic floor dysfunction M62.89. Please see the progress note below for an update on the physical therapy plan of care! Subjective Subjective: Her hips were really sore after last visit with traction. She stopped drinking the Celsius drinks that she was doing once a day but she noticed that caused her overactive bladder symptoms as that greatly improved not drinking them. When she has the back pain it is averaging 4/10. Pain is across both sides. She had a couple of twinges in the right anterior thigh (sharp pains) with standing up from a chair at the end of the day on Thursday or Thursday. Didn't last. Pelvic floor exercises going well. She feels significantly improved with her pelvic floor symptoms. She is very pleased with her progress. Objective Objective/Function: She had some difficulty with balance on ball. Improving back pain. Some irritation after traction last visit so held today as a trial. Plan Plan Plan: She will not need internal pelvic floor work again as tightness resolved. She has the full 7 week pelvic floor strengthening program . Continue work on left lumbar. Recommending she continue 1 x week for now as she is making progress and her surgery postponed. Continue needling if helpful? Progress ball exercises as tolerated. How did she respond by holding off on traction today compared to visit before with some hip irritation after traction. Patient is progressing nicely in all areas. Extending plan of care by 4 visits as she is making nice progress and awaiting her gynecological surgery. Goals Goals Goal 1:: Cat will be able to more comfortably have bowel movements with 50% less need for splinting. Goal Time Frame: 6-8 Weeks Goal Progress: Progressing Goal 2:: Cat will be able to cough or sneeze without leaking. Goal Time Frame: 6-8 Weeks Goal Progress: Progressing Goal 3:: Cat will have 2/10 low back pain with light housework activities that require bending and lifting. Goal Time Frame: 6-8 Weeks Anticipated Interventions Anticipated Interventions Patient/Client Instruction: Educate patient on: Condition and Plan of Care For the Purpose of:: To decrease pain Therapeutic Exercise to Include: Strength training and Coordination For the Purpose of:: To decrease pain Manual Therapy Techniques to Include: Trigger point massage, Manipulation and Soft tissue mobilization For the Purpose of:: To decrease pain Re-Evaluation Ending Re-evaluation ending: Please do not hesitate to contact me at [phone] by phone or if you have questions or concerns regarding this new plan of care! Sincerely, Ankita Baird
--- NOTE | 2024-10-04 12:50 | HP.PTDCSUM ---
Discharge Summary D/C summary: It has been my pleasure to treat CAT PORTILLO referred by AGNES WEINSTEIN, with the diagnosis of Pelvic floor dysfunction M62.89 for a total of 10 visit(s). Discharge Date: 10/04/24 Please see the following information for a summary of their discharge status. Subjective Subjective: She is no longer having stress incontinence and feels that is 100% resolved which she is very pleased with. She is also noticing that she is not spraying off to one side when she urinates now. She got a larger exercise ball. She is doing more ice than heat. She did much better after supine traction last visit. She has noticed less hip pain as well. 05/30. She is having surgery next week for her bladder, etc. Pain Low back: Pain Intensity (Out of 10): 2 Overall Improvement % Improvement: 100 Objective Objective/Function: She is doing much better with her low back pain and stress incontinence. Patient has been extremely compliant and motivated. Goals Goal 1:: Cat will be able to more comfortably have bowel movements with 50% less need for splinting. 10/04/24 50% improvement Goal Progress: Progressing Goal 2:: Cat will be able to cough or sneeze without leaking. Goal Progress: Goal Met Goal 3:: Cat will have 2/10 low back pain with light housework activities that require bending and lifting. Goal Progress: 70% improvement Plan Plan: Today is her last visit before her surgery. D/C. D/C Information Discharge Comments: Cat improved 100% with her stress incontinence and reports that has completely resolved. She reports 70% improvement in her low back pain and 50% improvement in her bowel movements. She will be having surgery to repair prolapse next week. At this time we are discharging her from PT. d/c sentence: If there are questions or concerns regarding this patient's physical therapy, please feel free to call me at [phone]. Thank you for the referral of this patient. Sincerely, Ankiat Baird Balance/Gait/Functional tests Improvement % Improvement: 100
--- NOTE | 2024-10-19 19:13 | HP.PTEVAL2_ITS ---
Patient's Visit Information Visit Information Visit Information: CAT PORTILLO is a 68 year old F referred to Physical Therapy by AGNES WEINSTEIN with a diagnosis of Neck pain M54.2. Date of Evaluation: 10/19/24 Physical Therapist: Ankita Baird Visit Plan Frequency: 1x/Week Duration: 6 Weeks Plan: Cat would benefit from skilled PT intervention to address her neck pain and functional limitations. She has moderate cervical malalignments and muscle tightness which we will address with manual therapy and education in gentle stretching and stabilization exercises for home. Next visit continue with manual therapy right cervical. Modalities Subjective Subjective: Cervical fusion 2020 with C5-C6 and C6-C7. She states her tolerance for being in the car as a passenger is [address]. Sidebending is painful. She states it is better if she drives vs being a passenger. Pain is bilateral neck (worse on right). Pain goes into the shoulder blade. Occasional tingling and numbness in right arm when her neck is bothering her a lot. Neck pain averages 3/10-7/10. The less she does the better it is. No headaches. She uses a round pillow for her neck for sleeping whether she is on her side or back. Objective Objective: The Oswestry Neck disability index 11 Cervical range of motion: Flexion 30 pain in right interscapular region Extension 39 uncomfortable Right SB 16 Left SB 16 pain in right upper trap Right Rot 64 tightness Left Rot 53 Good UE strength Right rotation C4-C6 Moderate right cervical, upper trap, suboccipital tightness Goals Goal 1:: Cat will be able to tolerate being a passenger in a vehicle for up to 1 hour at a time without neck pain during or after. Goal Time Frame: 6-8 Weeks Goal 2:: Cat will have full cervical range of motion allowing her to fully view traffic without neck pain during or after. Goal Time Frame: 4-6 Weeks Goal 3:: Cat will be able to look down to read a book or look at her phone for up to 45 minutes without neck pain during or after. Goal Time Frame: 6-8 Weeks Rehabilitation Potential Physical Therapy Diagnosis: Cervicalgia M54.2 Rehabilitation Potential: Good Anticipated Interventions Patient/Client Instruction: Educate patient on: Condition and Plan of Care For the Purpose of:: To decrease pain, To improve muscle performance and motor function, To improve health and function and To improve self management Therapeutic Exercise to Include: Strength training, Postural training, Flexibilty training and Scapular Strength/Stabilization For the Purpose of:: To decrease pain, To improve muscle performance and motor function and To improve self management Manual Therapy Techniques to Include: Trigger point massage, Mobilization and Soft tissue mobilization For the Purpose of:: To decrease pain, To improve muscle performance and motor function, To improve health and function and To improve self management Ultrasound (thermal/non thermal): Yes For the Purpose of:: To decrease pain, To improve muscle performance and motor function, To improve health and function and To improve self management text: Thank you for the opportunity to evaluate your patient. For Medicare and Medicare HMO plans, please review the plan of care and approve it. It will need to be FAXED BACK to us at [phone] for Medicare purposes. For Medicare only, by signing this I certify the plan of care. Please let me know if there are questions or concerns regarding this plan of care. Physician Signature: __Date:
--- NOTE | 2024-11-29 14:31 | HP.PTEVAL3_ITS ---
Patient's Visit Information Visit Information Visit Information: CAT PORTILLO is a 68 year old F referred to Physical Therapy by Dr. Latonya Camara MD with a diagnosis of Pelvic floor dysfunction M62.89. Date of Evaluation: 11/29/24 Physical Therapist: Ankita Baird Visit Plan Frequency: 1x/Week Duration: 2 Months Plan: Cat would benefit from skilled PT intervention to address her concerns postoperatively and get her back to her previous level of functioning. She has some mild pelvic floor tightness and weakness which we will address in our sessions. Continue 1 x week. Next visit continue pelvic floor releases left side layer 2-3. Add week 2 next visit. Continue work on left lumbar but she does better without deep manual therapy. Any change in the left pubic area sensitivity? Subjective Subjective: She had a robotic assisted laparascopic sacrocolpoplexy surgery on October 12, [address] Camara and Kayleen. They found a stage II Cystocele, Stage III rectocele, stage uterovaginal vault prolapse. Hysterectomy when she was about 41 years old due to endometriosis. Ovaries removed 6 years after uterus. She is doing well postoperatively. She has colitis. She has a bowel movement every 3 days and is loose stool. She typically uses her bidet water stream to stimulate and relax the rectal mu scles to have a bowel movement. She can hold back gas ok. She doesn't have to splint to have a bowel movement since surgery. She is using a squatty potty and trying not to bear down. Sometimes she feels like she leaks but she doesn't. She had one stress incontinence episode the other day but she was on her way to the bathroom and sneezed. Urinary incontinence had all gone away before surgery. She has a spot in the left pubic region that is tender to touch. She especially notices it if she lays on her belly. She has been out walking and getting a mile in since November 18. Too much activity prior to 6 weeks post op was making her uncomfortable in the lower abdomen. Left low back pain intermittent. Low back pain can get as high as 5/10. Varies 0-5/10. Mild left leg pain and down into the thigh. Pain low back pain: Intensity: 1 Pain Intensity Range: 5 Objective Objective: Mild pelvic floor tightness left side layers 2-3 - mild tenderness LAYCOCK 3-/1-/2/3- Difficulty relaxing between contractions no evidence of cystocele, rectocele 1 Left pelvic upslip Left rotation L3-L5 Mild tightness left lumbar, piriformis Goals Goal 1:: Cat will be able to participate in a gynecological exam using a medium sized speculum without pain during or after. Goal Time Frame: 6-8 Weeks Goal 2:: Cat will be able to lay prone without feeling tenderness in left pelvic region. Goal Time Frame: 2-4 Weeks Goal 3:: Cat will be able to walk for exercise up to 1-2 miles without feeling abdominal, pelvic pain during or after. Goal Time Frame: 6-8 Weeks Goal 4:: Cat will be able to cough or sneeze without leaking. Goal Time Frame: 6-8 Weeks Rehabilitation Potential Physical Therapy Diagnosis: Pelvic floor dysfunction M62.89, Stress incontinence Rehabilitation Potential: Good Anticipated Interventions Patient/Client Instruction: Educate patient on: Condition and Plan of Care For the Purpose of:: To decrease pain, To improve muscle performance and motor function and To improve health and function Therapeutic Exercise to Include: Strength training and Relaxation training For the Purpose of:: To improve muscle performance and motor function, To improve health and function and To improve self management Manual Therapy Techniques to Include: Trigger point massage, Mobilization and Soft tissue mobilization For the Purpose of:: To decrease pain, To improve muscle performance and motor function, To improve health and function and To improve self management text: Thank you for the opportunity to evaluate your patient. For Medicare and Medicare HMO plans, please review the plan of care and approve it. It will need to be FAXED BACK to us at [phone] for Medicare purposes. For Medicare only, by signing this I certify the plan of care. Please let me know if there are questions or concerns regarding this plan of care. Physician Signature: Date:
== END 2025-01-10 19:00 | disposition home or self-care (01) ==
LOC: PT 11:00
PROVIDERS: PCP Internal Medicine; Referring Provider Obstetrics & Gynecology Female Pelvic Medicine and Reconstructive Surgery; Visit Provider Obstetrics & Gynecology Female Pelvic Medicine and Reconstructive Surgery
DX: M62.89 Other specified disorders of muscle (principal)
CPT/HCPCS: 97012; 97110; 97112; 97140; 97161; 97530

== ENCOUNTER → 2025-03-06 | Outpatient (CLI) | payer MEDICARE, OTHER, SELFPAY ==
[2025-03-06 12:35] LABS: Hematocrit 44.4 % (37-47); Hemoglobin 14.6 g/dL (12.0-15.0); Immature Granulocytes Count 0.030 X10^3/uL (0.0-0.0); Mean Corp Hgb Conc 32.9 g/dL (32-36); Mean Corpuscular Volume 85.2 fL (81-99); Mean Platelet Vol. 9.6 fl (6.2-12.0); NRBC Flagged by Analyzer 0 % (0-5); Platelet Count 294 K/mm3 (150-450); RBC Distribution Width CV 13.9 % (11.6-14.6); RBC Distribution Width SD 43.2 fl (35.1-43.9); Red Blood Count 5.21 M/mm3 (4.2-5.4); White Blood Count 8.6 K/mm3 (4.4-11.0)
[2025-03-06 13:01] LABS: AST(SGOT) 26 U/L (<=31); Alanine Aminotransfer ALT/SGPT 21 U/L (<=34); Albumin, Serum 4.5 g/dL (3.4-4.8); Alkaline Phosphatase 50 U/L (35-104); Anion Gap 13 (5-15); BUN 16 mg/dL (4-19); BUN/Creat Ratio 21.0 RATIO (10-20); Calcium,Total 9.8 mg/dL (7.6-11.0); Carbon Dioxide 23.7 mmol/L (21.0-32.0); Chloride 103 mmol/L (98-108); Cholesterol 360 mg/dL (<=200); Globulin 3.3 g/dL (2.2-4.2); Glucose 102 mg/dL (70-99); Low Density Lipoprotein Calc. 271 mg/dL; Potassium 4.4 mmol/L (3.3-5.1); Triglycerides 147 mg/dL; Very Low Density Lipoprotein 29 mg/dL (5-40); cholesterol:hdl ratio screen 5.86
[2025-03-06 13:03] LABS: Creatinine, Urine (random) 39.00 mg/dL (28.00-217.00); Microalbumin,Random Urine 23.6 mg/L (<20 mg/L)
== END | disposition home or self-care (01) ==
LOC: CIMLAB 10:34
PROVIDERS: PCP Internal Medicine; Referring Provider Internal Medicine; Visit Provider Internal Medicine
DX: I10 Essential (primary) hypertension (principal); E78.2 Mixed hyperlipidemia
CPT/HCPCS: 36415; 80053; 80061; 82043; 82570; 85025